=== PATIENT | female | born 1960 | race Caucasian/White ===

== ENCOUNTER → 2016-02-23 | Outpatient (CLI) | payer BC ==
[2016-02-23 14:22] VITALS: BP 128/85; PULSE 88; TEMP 37; O2SAT 96
--- NOTE | 2016-02-23 16:03 | Radiation Oncology Follow-Up ---
Radiation Oncology Follow-Up Date of Visit Feb 23, 2016. Reason For Visit Annual follow-up Radiation Completion Date 07/10/13 Diagnosis (1) Cancer of midline of right female breast Status: Resolved Onset Date: 10/01/2012 Histology Subtype: ductal Stage: ll (B) Permanent Comment: Right breast mass Status post biopsy of the right breast and axilla revealing infiltrating ductal carcinoma 10/01/2012 Estrogen receptor negative, progesterone receptor negative, HER-2/violeta negative Status post neoadjuvant chemotherapy Adriamycin and Cytoxan followed by Taxol for 4 cycles Status post right breast skin sparing mastectomy and right axillary lymph node dissection, left breast skin sparing mastectomy and lymph node injection and sentinel lymph node biopsy 04/10/2014 Right breast [id number] left breast no pathologic findings Status post reconstruction with bilateral silicone implants Status post completion of radiation therapy 07/10/2013 received 6120 cGy BRCA1 testing positive Last Edited By: Linda Roth on Feb 24, 2015 13:29 Interim History She's been doing well over this past year. She has noticed no masses or tenderness and no change of the axilla. At her last visit she had some mild swelling and discomfort of the left axilla. This has resolved. She has noticed no swelling of her arm. She had previously undergone physical therapy which helped to relieve the swelling and discomfort. She continues regular follow-up with the plastic surgeon. She has been discharged from the breast surgeon. She continues regular follow-up with medical oncology. Allergies Coded Allergies: Sulfa Drugs (Verified Allergy, Unknown, HIVES, 02/26/15) Home Medications No Active Prescriptions or Reported Meds Review of Systems Gastrointestinal: Symptoms: WNL Oral: Symptoms: No Problems Respiratory: Symptoms: WNL Urinary: Symptoms: WNL Skin: Symptoms: No Problems Breast: Right Upper Arm Measurement: 29.0 Right Mid Arm Measurement: 23.3 Right Wrist Measurement: 15.3 Left Upper Arm Measurement: 29.0 Left Mid Arm Measurement: 23.3 Left Wrist Measurement: 15.5 Arm Dominence: Right Physical Exam Vital Signs Date Time Temp Pulse Resp B/P Pulse Ox O2 Delivery O2 Flow Rate FiO2 02/23/16 14:22 37.0 88 12 128/85 96 Fatigue: None General Appearance: no apparent distress Eyes: normal inspection, EOMI ENT: normal ENT inspection, hearing grossly normal Neck: no adenopathy Respiratory/Chest: lungs clear, no respiratory distress, no accessory muscle use Breast: Examination of the chest reveals bilateral implants. There is some mild dryness of the skin which is patchy bilaterally. This is mostly noted in the inner portion of the implanted breast area. There are no masses or tenderness no axillary adenopathy. Using the [place] score cosmesis she has an excellent outcome. There are no skin retractions or telangiectasis. Cardiovascular: regular rate, rhythm, no gallop, no murmur Abdomen: non tender, soft Extremities: no pedal edema Neurologic/Psychiatric: no motor/sensory deficits, alert, normal mood/affect Skin: warm/dry Lymphatic: no adenopathy Laboratory Studies Test 11/24/15 15:56 White Blood Count 4.36 K/uL (4.8-10.8) Red Blood Count 4.22 M/uL (4.2-5.4) Hemoglobin 12.6 g/dl (12.0-16.0) Hematocrit 37.9 % (37-47) Mean Corpuscular Volume 89.8 fL (80-100) Mean Corpuscular Hemoglobin 29.9 pg (25-34) Mean Corpuscular Hemoglobin Concent 33.2 g/dl (32-36) Platelet Count 228 K/uL (130-400) Mean Platelet Volume 9.2 fL (7.4-10.4) Neutrophils (%) (Auto) 48.6 % Lymphocytes (%) (Auto) 39.9 % Monocytes (%) (Auto) 8.7 % Eosinophils (%) (Auto) 2.3 % Basophils (%) (Auto) 0.5 % Neutrophils # (Auto) 2.12 K/uL (1.4-6.5) Lymphocytes # (Auto) 1.74 K/uL (1.2-3.4) Monocytes # (Auto) 0.38 K/uL (0.11-0.59) Eosinophils # (Auto) 0.10 K/uL (0-0.5) Basophils # (Auto) 0.02 K/uL (0-0.2) RDW Standard Deviation 43.2 fL (36.4-46.3) RDW Coefficient of Variation 13.3 % (11.5-14.5) Immature Granulocyte % (Auto) 0.0 % Immature Granulocyte # (Auto) 0.00 K/uL (0.00-0.02) Sodium Level 140 mmol/L (136-145) Potassium Level 3.9 mmol/L (3.5-5.1) Chloride Level 104 mmol/L (98-107) Carbon Dioxide Level 29 mmol/L (21-32) Anion Gap 7.0 mmol/L (3-11) Blood Urea Nitrogen 11 mg/dl (7-18) Creatinine 0.65 mg/dl (0.60-1.20) Est Creatinine Clear Calc Drug Dose 90.1 ml/min Estimated GFR () 117.5 Estimated GFR (Non- 101.4 BUN/Creatinine Ratio 16.3 (10-20) Random Glucose 101 mg/dl (70-99) Calcium Level 9.3 mg/dl (8.5-10.1) Total Bilirubin 0.5 mg/dl (0.2-1) Aspartate Amino Transferase (AST) 41 U/L (15-37) Alanine Aminotransferase (ALT) 32 U/L (12-78) Alkaline Phosphatase 76 U/L (45-117) Total Protein 7.8 gm/dl (6.4-8.2) Albumin 3.9 gm/dl (3.4-5.0) Globulin 3.9 gm/dl (2.5-4.0) Albumin/Globulin Ratio 1.0 (0.9-2) Assessment & Plan Plan: Continue regular follow-up with medical oncology as well as her plastic surgeon. Continue follow-up with her primary care physician. We asked her to return to our office in 1 year. She may call if she has a questions or concerns. Also recommended the use of Aquaphor to the areas of skin dryness. Total Time In Follow-Up I spent 15 minutes speaking to the patient and performing examination. I spent 15 minutes reviewing information in completing this note. Copy To Martina Martinez CRNP; Mukul Bryson D.O.Int.Med.
== END | disposition home or self-care (01) ==
LOC: C.ONC 14:14
PROVIDERS: ATTEND Radiology Radiation Oncology
DX: Z08 Encounter for follow-up examination after completed treatment for malignant neoplasm (principal); Z92.3 Personal history of irradiation; Z85.3 Personal history of malignant neoplasm of breast

== ENCOUNTER → 2016-03-08 | Outpatient (CLI) | payer BC | END | disposition home or self-care (01) | LOC: C.LAB1850 16:57 | PROVIDERS: ATTEND Family Medicine | DX: R07.89 Other chest pain (principal) ==

== ENCOUNTER → 2016-03-09 | Outpatient (CLI) | payer BC ==
--- NOTE | 2016-03-09 19:48 | DIAGNOSTIC IMAGING REPORT ---
TWO VIEW CHEST CLINICAL HISTORY: Cough. Atypical chest pain. FINDINGS: PA and lateral chest radiographs are compared to study dated 03/31/2012 and correlated with chest CT dated 10/17/2012. The cardiomediastinal silhouette is unremarkable. The lungs and pleural spaces are clear. Right apical scarring is identified. There is no pneumothorax. The skeletal structures are osteopenic. The bony thorax appears intact. Surgical clips are noted both axillae. IMPRESSION: No active disease in the chest. Electronically signed by: Dada Johnson M.D. 03/09/2016 7:47 PM Dictated Date/Time: 03/09/2016 7:45 PM
== END | disposition home or self-care (01) ==
LOC: C.RAD1850 16:11
PROVIDERS: ATTEND Family Medicine
DX: R07.89 Other chest pain (principal)

== ENCOUNTER → 2016-03-15 | Outpatient (CLI) | payer BC ==
--- NOTE | 2016-03-15 09:44 | DIAGNOSTIC IMAGING REPORT ---
THYROID ULTRASONOGRAPHY CLINICAL HISTORY: Breast carcinoma, cervical lymphadenopathy. COMPARISON STUDY: No previous studies for comparison. FINDINGS: The right lobe measures 5.2 x 1.4 x 2.1 cm. The left lobe measures 5.4 x 1.1 x 1.8 cm. There is a 6 x 4 x 3 mm hypoechoic nodule within the left lobe laterally. No right lobe nodules are visualized. Within the right neck in the region of concern, there are 2 hypoechoic lesions the largest of which measures 7 mm. These likely represent lymph nodes. Despite the normal size, no normal fatty hilum is visualized and therefore they may be pathologic. Close follow-up is advocated. IMPRESSION: 1. Within the right lateral neck there are two hypoechoic lesions the largest of which measures 7 mm. These likely represent lymph nodes and are potentially pathologic as normal fatty hebert are not visualized. 2. 6 mm left lobe thyroid nodule Electronically signed by: Shilo Kenney M.D. 03/15/2016 9:43 AM Dictated Date/Time: 03/15/2016 9:40 AM
== END | disposition home or self-care (01) ==
LOC: C.ULTR 09:16
PROVIDERS: ATTEND Family Medicine
DX: C50.919 Malignant neoplasm of unspecified site of unspecified female breast (principal); R59.0 Localized enlarged lymph nodes

== ENCOUNTER → 2016-03-22 | Outpatient (CLI) | payer BC ==
--- NOTE | 2016-03-22 11:03 | DIAGNOSTIC IMAGING REPORT ---
ULTRASOUND-GUIDED FINE-NEEDLE ASPIRATION BIOPSY OF RIGHT NECK LYMPH NODES CLINICAL HISTORY: CERVICAL LYMPHADENOPATHY COMPARISON STUDY: Ultrasound study dated 03/15/2016 FINDINGS: A timeout was performed. The risks of procedure were explained the patient and informed consent was obtained. The patient was prepped in a sterile fashion. The skin was anesthetized 1% lidocaine. Under ultrasound guidance, 4 passes utilizing a 25-gauge needle were performed into the right posterior triangle lymph nodes of concern. Initial pathologic review indicates satisfactory material. Final pathology is pending at this time. IMPRESSION: Successful ultrasound-guided fine-needle aspiration biopsy of right neck posterior triangle lymph nodes. Electronically signed by: Shilo Kenney M.D. 03/22/2016 11:01 AM Dictated Date/Time: 03/22/2016 10:54 AM
== END | disposition home or self-care (01) ==
LOC: C.ULTR 09:19
PROVIDERS: ATTEND Internal Medicine Geriatric Medicine
DX: R59.0 Localized enlarged lymph nodes (principal); R89.6 Abnormal cytological findings in specimens from other organs, systems and tissues

== ENCOUNTER → 2016-04-06 | Outpatient (CLI) | payer BC ==
--- NOTE | 2016-04-06 21:08 | DIAGNOSTIC IMAGING REPORT ---
PET/CT CLINICAL HISTORY: Triple negative breast cancer with metastasis/recurrence in right cervical lymph node biopsy. TECHNIQUE: A PET/CT was performed from the skull base through the upper thighs following intravenous injection of 15.90 mCi of F 18 FDG IV. The injection was performed at 9:36 AM on April 06, 2016 and imaging began at 10:23 on April 06, 2016. Unenhanced CT was performed for attenuation correction purposes and anatomic localization. COMPARISON STUDY: CT of the chest, abdomen and pelvis October 17, 2012. FINDINGS: Head and neck: An FDG avid left supraclavicular lymph node shown on image 50 of 267 measures 1.8 x 1.2 cm. This node has an SUV max of 5.8. This is new since chest CT of October 17, 2012. There are several mildly enlarged FDG avid right supraclavicular and lower cervical lymph nodes as well. Chest: There are numerous FDG avid bulky left axillary lymph nodes. An upper left axillary lymph node shown on image 59 measures 4 x 2.5 cm and has an SUV max of 11.5. An inferior left axillary node shown on image 75 measures 3 x 3 cm and has an SUV max of 11.2. There are suspected bilateral mastectomies with bilateral breast implants. Note is made of a lobulated 3.2 x 2.9 cm mass along the inferior medial aspect of the left implant which has an SUV max of 11.6. Numerous FDG avid internal mammary lymph nodes are noted. A dominant left internal mammary chain node shown image 70 measures 2 x 1.4 cm and has an SUV max of 8.8. There are several extrapleural nodules within the lower aspect of the right hemithorax, the largest of which is shown on image 101, measuring 2 x 0.9 cm. This has an SUV max of 2.3. Several FDG avid masses are shown within the musculature of the right lateral chest wall. These suggest metastases as well. Abdomen and Pelvis: No suspicious FDG uptake is identified within the abdomen or the pelvis. There is a gallstone within the gallbladder. There is no abdominal or pelvic lymphadenopathy. Musculoskeletal: There is been interval development of a 9 mm sclerotic lesion within the greater trochanter of the right femur shown on image 226. This has no significant FDG uptake. IMPRESSION: 1. Findings consistent with extensive metastatic disease, including FDG avid bulky left axillary lymphadenopathy. In addition, there is bilateral supraclavicular, internal mammary and right axillary lymphadenopathy as well as several FDG avid metastases within the musculature of the right lateral chest wall. Several FDG avid right pleural/extrapleural implants suggest metastatic disease. 2. FDG avid 3.2 x 2.9 cm lobulated mass inferomedial to the left implant. This is consistent with a neoplastic process and may reflect a primary breast cancer or metastasis. 3. New 9 mm sclerotic lesion within the greater trochanter of the right femur which may reflect a small skeletal metastasis. Electronically signed by: Earl Elizabeth M.D. 04/06/2016 9:07 PM Dictated Date/Time: 04/06/2016 12:44 PM
== END | disposition home or self-care (01) ==
LOC: C.PET 09:23
PROVIDERS: ATTEND Nurse Practitioner
DX: C50.911 Malignant neoplasm of unspecified site of right female breast (principal); R59.0 Localized enlarged lymph nodes; Z98.82 Breast implant status; N63 Unspecified lump in breast; M89.9 Disorder of bone, unspecified

== ENCOUNTER → 2016-08-29 | Outpatient (CLI) | payer BC ==
--- NOTE | 2016-08-29 12:58 | DIAGNOSTIC IMAGING REPORT ---
PET/CT SKULL-THIGH CLINICAL HISTORY: BREAST CANCER COMPARISON STUDY: 04/04/2016 FINDINGS: The patient was injected with 12.5 millicuries of F 18 labeled FDG. Findings standard induction phase, PET/CT scanning was performed from the skull base to the upper thigh region. Within the neck, there is increasing FDG avid focus fusing to the right nasopharynx near the level of the fossa of Rosenmuller. This has an SUV maximum of 4.3. There are mildly FDG avid cervical lymph nodes. Posterior triangle lymph nodes in the right are mildly FDG avid with SUV maximum of 2. The largest node measures 11 mm. This is minimally larger than on the prior study. There is marked interval decrease in the size of the previous identified intensely FDG avid left axillary lymph nodes. The largest node currently measures 17 mm. This is FDG avid with SUV maximum of 6.4. There is a new focus of increased FDG activity fusing to a right-sided subcarinal lymph node. This has an SUV maximum of 4.2. There is been resolution of the pathologic activity in the region of the left internal mammary chain. There are persistent foci of intramuscular activity adjacent to the right scapula with SUV maximum of 3.8. There is decreased activity involving the left anterior chest wall mass which currently has an SUV maximum of 3.8. There are postsurgical changes of bilateral mastectomies. Right upper lobe airspace opacities are likely secondary to post radiation pneumonitis. There are no FDG avid hepatic or splenic lesions. Note is made of cholelithiasis. There is no FDG avid adenopathy within the abdomen or pelvis. Mild diffuse skeletal activity, likely is related to marrow stimulation. IMPRESSION: 1. Significant interval improvement, although there does appear to be a new FDG avid right subcarinal lymph node, as well as increasingly FDG avid focus in the region of the right nasopharynx. 2. Pathologic lesions involving the left chest wall left axilla and left internal mammary chain are markedly improved Electronically signed by: Shilo Kenney M.D. 08/29/2016 12:57 PM Dictated Date/Time: 08/29/2016 12:46 PM
== END | disposition home or self-care (01) ==
LOC: C.PET 09:23
PROVIDERS: ATTEND Internal Medicine Hematology & Oncology
DX: C50.411 Malignant neoplasm of upper-outer quadrant of right female breast (principal)

== ENCOUNTER → 2016-11-28 | Outpatient (CLI) | payer BC ==
[~2016-11-28] MED LIST: OPTIRAY 320 IV PRN
--- NOTE | 2016-11-28 12:21 | DIAGNOSTIC IMAGING REPORT ---
CT ABD/PELVIS IV AND ORAL CONT CLINICAL HISTORY: BREAST CA COMPARISON STUDY: 10/17/2012, PET/CT scan dated 08/29/2016 TECHNIQUE: Following the IV administration of 119 mL of Optiray-320, CT scan of the abdomen and pelvis was performed from the lung bases to the proximal femurs. Images are reviewed in the axial, sagittal, and coronal planes. IV contrast was administered without complication. A dose lowering technique was utilized adhering to the principles of ALARA. CT DOSE: FINDINGS: Lower chest: There are bilateral breast implants. There is a 42 cm medial right breast mass. There is a partially visualized mass involving the right lateral chest wall which measures at least 5 cm in length. Liver: The contrast-enhanced liver is normal in size, contour, and attenuation. There is no intrahepatic biliary ductal dilatation. The hepatic veins and portal veins are patent. Gallbladder: Cholelithiasis Spleen: Normal in size and attenuation. Pancreas: Unremarkable. Adrenal glands: Unremarkable. Kidneys: There is an 8 mm left renal cyst. No solid renal masses are visualized. Bowel: There are no transition zones indicate bowel obstruction. No acute inflammatory changes are visualized. Peritoneum: There is no intraperitoneal free air or abdominal ascites. Vasculature: The abdominal aorta is normal in course and caliber. Adenopathy: There are enlarged upper abdominal retrocrural lymph nodes. These appear larger than on the prior PET/CT scan. These measure up to 16 mm in diameter. There are also enlarged lower right para esophageal lymph nodes. These also are mildly larger than on the prior study. Right paravertebral lymphadenopathy, has also increased when compared the preceding study. Pelvic viscera: The uterus appears surgically absent. Skeletal structures: No destructive osseous lesions are seen. There is a stable nonspecific 9 mm sclerotic focus within the intertrochanteric portion of the right hip IMPRESSION: 1. Progression of disease 2. Enlarging 42 mm left medial breast mass 3. Partially visualized right lateral chest wall mass 4. Progressive right-sided paravertebral lymphadenopathy 5. Progressive para esophageal adenopathy 6. Progressive retrocrural lymphadenopathy Electronically signed by: Shilo Kenney M.D. 11/28/2016 12:20 PM Dictated Date/Time: 11/28/2016 12:10 PM
--- NOTE | 2016-11-28 12:42 | DIAGNOSTIC IMAGING REPORT ---
CT SCAN OF THE CHEST WITH IV CONTRAST CLINICAL HISTORY: Breast cancer. COMPARISON STUDY: Chest CT dated 10/17/2012. PET/CT dated 08/29/2016. TECHNIQUE: Following the IV administration of 119 cc of Optiray 320, CT scan of the thorax was performed from the thoracic inlet to the upper abdomen. Images are reviewed in the axial, sagittal, and coronal planes. IV contrast was administered without complication. A dose lowering technique was utilized adhering to the principles of ALARA. CT DOSE: 606.41 mGy.cm FINDINGS: Thyroid: Imaged portions of the thyroid gland are normal in size and attenuation. Thoracic aorta: The thoracic aorta is normal in caliber and demonstrates standard 3-vessel arch anatomy. No dissection is seen. Pulmonary vasculature: The pulmonary trunk is normal in caliber. There are no filling defects identified in the central pulmonary vessels to indicate pulmonary embolus. Note that this examination was not protocoled for evaluation of the pulmonary arteries. Heart: The heart is normal in size and configuration, and without pericardial effusion. Lungs and pleural spaces: There are numerous (greater than 10) pleural-based metastatic lesions identified at the right lung base posteriorly. Groundglass opacities and scarring are present at the right apex. The lungs are otherwise clear. No parenchymal pulmonary lesion is seen. There is no pleural effusion. The trachea and central airways are clear. Mediastinum: Mediastinal lymphadenopathy has progressed. A right paratracheal node on image #81 measures 1.7 x 2.3 cm. A subcarinal node on image #119 measures 1.9 x 3.0 cm. The largest is seen on image #218 and measures 3.2 x 1.3 cm. Additional sales and marketing representative lesions are seen on images #198, #212, #247, and 47, #251, and #263 these lesions extend into the right paravertebral region. Reema: Clear. Axillae: Surgical clips are present within the axilla bilaterally. There are pathologically enlarged left axillary and subpectoral nodes which have increased in size from previous. The largest left axillary node is seen on image #70 and measures 3.0 x 1.7 cm (previously measuring up to 1.8 cm). Slightly hyperemic right subpectoral nodes seen on image #48 measure up to 6 mm and are also concerning for metastatic disease. Internal mammary chain: Pathologically enlarged right internal mammary lymph nodes have increased in size. The largest node is seen on image #85 and measures 1.2 x 1.8 cm. No left internal mammary lymph nodes are identified. Upper abdomen: There is evidence of hepatic steatosis. A 1.2 cm retrocrural lymph node is seen image #265. Skeletal structures: The skeletal structures appear osteopenic. No lytic or blastic bony lesions are clearly seen. Soft tissues: There are postoperative changes from bilateral mastectomy with bilateral breast implants. Large soft tissue implants are again seen in the chest wall and an increased in size from 08/29/2016. A lesion in the left chest wall medial to the left breast implant on image #174 measures 3.2 x 4.2 cm (producing measured up to 2.8 cm). There are least 7 lesions in the right lateral chest wall seen on images #132-204. The largest measures up to 3.3 x 2.8 cm (previously measured up to 2.8 cm). Small soft tissue implants are seen superficial to the sternum the midline on images #138, #149, and #158 measuring up to 1.4 cm. A 1.3 cm lesion is noted in the right shoulder musculature on image #94. IMPRESSION: 1. Overall significant progression of multifocal metastatic disease as compared to 08/29/2016. 2. There are numerous enlarging chest wall lesions as above. 3. There is enlarging axillary, subpectoral, right internal mammary, mediastinal, and retrocrural lymphadenopathy as above. 4. There is evidence of multifocal pleural-based metastatic disease at the right lung base. There is no associated pleural effusion. 5. Groundglass change and scarring at the right apex is nonspecific and likely treatment related. This is similar to previous. There is no evidence of pneumonia. 6. No destructive bony lesion is clearly seen. 7. Hepatic steatosis. 8. Additional findings as above. Electronically signed by: Dada Johnson M.D. 11/28/2016 12:40 PM Dictated Date/Time: 11/28/2016 12:25 PM
== END | disposition home or self-care (01) ==
LOC: C.CTS 11:46
PROVIDERS: ATTEND Internal Medicine Hematology & Oncology
DX: C50.411 Malignant neoplasm of upper-outer quadrant of right female breast (principal); C78.2 Secondary malignant neoplasm of pleura; R59.0 Localized enlarged lymph nodes; K76.0 Fatty (change of) liver, not elsewhere classified

== ENCOUNTER → 2016-12-07 | Outpatient (CLI) | payer BC ==
--- NOTE | 2016-12-07 17:21 | DIAGNOSTIC IMAGING REPORT ---
THORACIC SPINE 3 VIEWS ROUTINE, L-SPINE MIN 4 VIEWS ROUTINE HISTORY: 56 years-old Female M54.9 Back painpt. has breast [id number] acute back pain with history of breast cancer COMPARISON: CT chest, abdomen and pelvis 11/28/2016 TECHNIQUE: Frontal and lateral views of the thoracic spine with 5 views of the lumbar spine FINDINGS: THORACIC: There are 12 thoracic type vertebral segments. There is a few degrees of convex right curvature of the midthoracic spine. Mild multilevel endplate spurring and intervertebral disc space narrowing. No acute fracture or subluxation. No definite suspicious lytic or blastic bony lesions identified. Surgical clips project over the upper chest. LUMBAR: 5 lumbar type vertebral segments. No spondylolysis or spondylolisthesis. No acute fracture or subluxation. Mild multilevel endplate spurring and intervertebral disc space narrowing with facet arthrosis. No suspicious lytic or blastic bony lesions. Moderate formed stool of the colon, notably the ascending colon. IMPRESSION: 1. No suspicious lytic or blastic bony lesions of the thoracic or lumbar spine. 2. Mostly mild multilevel degenerative changes of the spine without acute fracture or subluxation. The above report was generated using voice recognition software. It may contain grammatical, syntax or spelling errors. Electronically signed by: Merrill Renteria M.D. 12/07/2016 5:20 PM Dictated Date/Time: 12/07/2016 5:13 PM
== END | disposition home or self-care (01) ==
LOC: C.RAD1850 16:37
PROVIDERS: ATTEND Internal Medicine
DX: M54.9 Dorsalgia, unspecified (principal); M47.894 Other spondylosis, thoracic region; M47.26 Other spondylosis with radiculopathy, lumbar region; C50.411 Malignant neoplasm of upper-outer quadrant of right female breast; C78.2 Secondary malignant neoplasm of pleura

== ENCOUNTER → 2017-02-22 | Outpatient (CLI) | payer OTHER ==
[~2017-02-22] MED LIST changes: +ACET-1256 PO; +ONDA4TAB46 PO; -OPTIRAY 320 IV PRN; +OXYC1TAB3 PO; +POTA10CA28 PO
[2017-02-22 13:35] VITALS: BP 126/87; PULSE 91; TEMP 36.7; O2SAT 100
--- NOTE | 2017-02-22 16:39 | Radiation Oncology Follow-Up ---
Radiation Oncology Follow-Up Date of Visit Feb 22, 2017. 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 Onset Date: 10/01/2012 Histology Subtype: ductal Stage: IV Permanent Comment: Right breast mass Status post biopsy of the right breast and axilla revealing infiltrating ductal carcinoma 10/01/2012 Estrogen receptor negative, progesterone receptor negative, HER-2/violeta negative Status post neoadjuvant chemotherapy Adriamycin and Cytoxan followed by Taxol for 4 cycles Status post right breast skin sparing mastectomy and right axillary lymph node dissection, left breast skin sparing mastectomy and lymph node injection and sentinel lymph node biopsy 04/10/2014 Right breast [id number] left breast no pathologic findings Status post reconstruction with bilateral silicone implants Status post completion of radiation therapy 07/10/2013 received 6120 cGy BRCA1 testing positive Finding of a right neck mass March 2016 Status post FNA revealing metastatic adenocarcinoma of breast origin PET/CT revealing extensive metastatic disease. 6 cycles of chemotherapy with Abraxane PET/CT revealing improvement August [address] November 2016 showing progression Currently undergoing chemotherapy with gemcitabine and carboplatin Last Edited By: Linda Roth on Feb 22, 2017 16:32 Interim History One month following her visit last year she palpated a mass in the right neck. She underwent an FNA which unfortunately revealed this to be metastatic carcinoma of breast origin. PET/CT revealed significant metastatic disease. She began chemotherapy with Abraxane and had a recheck PET/CT then in August which showed improvement. This was after 6 cycles of Abraxane. Recheck CT in November 2016 revealed progression of disease. She was then started on gemcitabine and carboplatin. She has now received 5 cycles of treatment. With this second regimen of treatment she has less neuropathy and less joint pain. She has mild nausea. She has joint discomfort with Neulasta. Following the initiation of the Abraxane the mass of the neck resolved as well as a thickening that could be felt in the left lower breast. Allergies Coded Allergies: Tramadol (Verified Allergy, Intermediate, Nausea/Vomiting , 02/22/17) Sulfa Drugs (Verified Allergy, Unknown, HIVES, 02/26/15) Home Medications Scheduled Potassium Chloride (Micro-K Ext Rel), 10 MEQ PO DAILY Scheduled PRN Oxycodone Ir (Roxicodone Ir), 1-2 TAB PO Q4H PRN for Severe Pain Review of Systems Gastrointestinal: Symptoms: WNL, Nausea GI Comments: "Queezy" after chemo Oral: Symptoms: No Problems Respiratory: Symptoms: WNL Urinary: Symptoms: WNL Skin: Symptoms: No Problems Breast: Right Upper Arm Measurement: 28.5 Right Mid Arm Measurement: 23.1 Right Wrist Measurement: 15.7 Left Upper Arm Measurement: 29.1 Left Mid Arm Measurement: 23.0 Left Wrist Measurement: 15.8 Arm Dominence: Right Physical Exam Vital Signs Date Time Temp Pulse Resp B/P (MAP) Pulse Ox O2 Delivery O2 Flow Rate FiO2 02/22/17 13:35 36.7 91 16 126/87 100 Fatigue: None General Appearance: no apparent distress Eyes: normal inspection, EOMI ENT: normal ENT inspection, hearing grossly normal Neck: no adenopathy, thyroid normal Respiratory/Chest: lungs clear, no respiratory distress, no accessory muscle use Breast: Breast examination reveals bilateral implants. There are no masses or tenderness and no axillary adenopathy. She has no skin retractions or telangiectasia. Using the [place] score cosmesis she has a in excellent outcome. Cardiovascular: regular rate, rhythm, no gallop, no murmur Abdomen: non tender, soft Extremities: no pedal edema Neurologic/Psychiatric: no motor/sensory deficits, alert, normal mood/affect Pain Management Patient Reports Pain: Yes Pain Management Plan The patient has multiple medications available for pain as recommended through medical oncology. Laboratory Laboratory Results: not applicable Pathology Pathology Results: were reviewed Pathology Comments Reviewed in interim history Imaging Imaging Studies: were reviewed Imaging Comments Reviewed in the interim history Assessment & Plan Plan: She'll continue regular follow-up with medical oncology and her primary care physician. She is continuing on chemotherapy and has completed 5 cycles of gemcitabine and carboplatin. Recheck scanning per medical oncology. A follow-up appointment with our office was not given. Discussed with her that she is having close follow-up with medical oncology and currently does not need to return to our office unless otherwise recommended by medical oncology. She may call our office if she has any questions or concerns. Total Time In Follow-Up I spent 20 minutes speaking to the patient and performing examination. I spent 15 minutes reviewing information in completing this note. Copy To Mukul Bryson D.O.; Mendez Holguin D.O.
== END | disposition home or self-care (01) ==
LOC: C.ONC 13:31
PROVIDERS: ATTEND Physician Assistant Medical
DX: Z08 Encounter for follow-up examination after completed treatment for malignant neoplasm (principal); Z92.3 Personal history of irradiation; Z85.3 Personal history of malignant neoplasm of breast

== ENCOUNTER → 2017-03-09 | Day surgery (SDC) | payer OTHER ==
[2017-03-08 08:47] VITALS: BMI 27.0
[~2017-03-09] VITALS: Ht 161.3 cm; Wt 71.8 kg
[~2017-03-09] MED LIST changes: +ATROPINE SULFATE 0.1 MG/ML 5ML SYR IV PRN; +BUPIVACAINE 0.5 % 5 MG/1 ML MPF 30ML VIAL ONE; +CEFAZOLIN 2000MG IV PUSH 10 ML IV SCH; +EpHEDrine SULFATE INJ 50 MG/ML AMP IV PRN; +FENTANYL CITRATE INJ 50 MCG/1 ML 2 ML VIAL IV PRN; +FENTANYL CITRATE INJ 50 MCG/1 ML 2 ML VIAL ONE; +HEPARIN SOD (PORCINE) 5000 UNIT/ML 1 ML VIAL ONE; +HYDROCODONE/ACETAMOPHEN 5/325MG TAB PO PRN; +HYDROmorphone INJ 1 MG/ML SYR IV PRN; +LABETALOL HCL IV 5 MG/ML 20ML IV PRN; +LACTATED RINGER'S 1000ML 1,000 ML IV SCH; +LIDOCAINE HCL 2% 2 ML VIAL (20MG/ML) ONE; +LIDOCAINE/EPINEPHRINE 1% 20 ML VIAL ONE; +MEPERIDINE HCL 25 MG/ML CARP IV PRN; +MIDAZOLAM HCL 1 MG/ML 2ML VIAL ONE; +MoRPHine SULFATE 2 MG/ML CARP IV PRN; +ONDANSETRON INJ 2 MG/ML 2 ML VIAL IV PRN; +PROPOFOL IV EMULSION 10 MG/ML 20 ML VIAL IV ONE
[2017-03-09 08:13] VITALS: BP 120/78; PULSE 76; TEMP 36.6; O2SAT 100; Ht 161.3 cm; Wt 71.8 kg
[2017-03-09 08:39] LABS: HEMATOCRIT 26.1 % (37-47); HEMOGLOBIN 8.8 g/dL (12.0-16.0); MEAN CELL VOLUME 92.9 fL (80-100); MEAN CORPUSCULAR HEMOGLOBIN 31.3 pg (25-34); MEAN CORPUSCULAR HGB CONC 33.7 g/dl (32-36); RED CELL DISTRIBUTION WIDTH CV 18.1 % (11.5-14.5); RED CELL DISTRIBUTION WIDTH SD 58.9 fL (36.4-46.3); WHITE BLOOD COUNT 1.96 K/uL (4.8-10.8)
[2017-03-09 08:55] LABS: MEAN PLATELET VOLUME 11.7 fL (7.4-10.4); PLATELET COUNT 65 K/uL (130-400)
[2017-03-09 09:22] LABS: EOS % 0.5 %; EOS ABS # 0.01 K/uL (0-0.5); IG# 0.01 K/uL (0.00-0.02); LYMPH ABS # 1.02 K/uL (1.2-3.4); MONO % 19.4 %; MONO ABS # 0.38 K/uL (0.11-0.59); NEUT % 27.6 %; NEUT ABS # 0.54 K/uL (1.4-6.5)
--- NOTE | 2017-03-09 11:26 | History & Physical Bridge Note ---
H&P Re-Evaluation Bridge Note: I have examined the patient, reviewed the History & Physical and in the interval since the performance of the History & Physical I have noted the following changes of clinical significance: Patient seen and examined, agree with history of physical was performed. Patient with metastatic breast cancer, prior port in left internal jugular vein, we will attempt to utilize this vein if possible, however she understands that she may require placement on the right. No changes noted
--- NOTE | 2017-03-09 12:51 | Discharge Instructions ---
Discharge Instructions Date of Service Mar 09, 2017. Visit Reason for Visit: Right Breast Cancer Discharge Discharge Diagnosis / Problem: port placement Discharge Goals Goal(s): Therapeutic intervention Activity Recommendations Activity Limitations: as noted below Shower/Bathe: no limitations Anesthesia . Post Anesthesia Instructions: If you have had General Anesthesia or IV Sedation: * Do not drive today. * Resume driving when surgeon permits. * Do not make important decisions or sign legal documents today. * Call surgeon for: 1. Temperature elevations greater than 101 degrees F. 2. Uncontrollable pain. 3. Excessive bleeding. 4. Persistent nausea and vomiting. 5. Medication intolerance (nausea, vomiting or rash). * For nausea and vomiting use only clear liquids such as: tea, soda, bouillon until nausea subsides, then gradually increase diet as tolerated. * If you have any concerns or questions, call your surgeon's office. If physician is unavailable and it is an emergency, call 911 or go to the nearest emergency room. . Instructions / Follow-Up Instructions / Follow-Up Dr. Logan in approx 2 weeks, call [phone] if you do not have an appt or have any questions It is ok for port to be used You can take ibuprofen 600 mg three times daily for pain in addition to Tylenol or oxycodone Diet Recommendations Recommended Home Diet: no limitations Pending Studies Studies pending at discharge: no Medical Emergencies . Who to Call and When: Medical Emergencies: If at any time you feel your situation is an emergency, please call 911 immediately. . Non-Emergent Contact Non-Emergency issues call your: Surgeon Call Non-Emergent contact if: you have a fever, temperature is above 101.5, your pain is not controlled, wound has increased redness, you have any medication questions . . "Provider Documentation" section prepared by Matt Pelayo. .
--- NOTE | 2017-03-09 12:59 | [facility] Post Operative Brief Note ---
Immediate Operative Summary Operative Date Mar 09, 2017. Pre-Operative Diagnosis Breast Cancer, Poor Venous Access Post-Operative Diagnosis Breast Cancer, Poor Venous Access Procedure(s) Performed Insertion of Mediport with Fluoroscopy, Left Internal Jugular Vein Surgeon Dr. Abdi Logan Cultured [employer]ble Products Maker Surgeon(s) none Estimated Blood Loss 15ml Findings Consistent with Post-Op Diagnosis Specimens none per surgeon Drains None Anesthesia Type None Complication(s) none Disposition Accompanied Pt To Recover: no Disposition: Recovery Room / PACU
--- NOTE | 2017-03-09 13:19 | [facility] Operative Report ---
Operative Report Operative Date Mar 09, 2017. Pre-Operative Diagnosis Breast Cancer, Poor Venous Access Post-Operative Diagnosis same Procedure(s) Performed Insertion of left internal jugular vein tunneled catheter with subcutaneous port using fluoroscopy Surgeon Dr. Abdi Logan Glass Deposition Tender Surgeon(s) none Estimated Blood Loss 15ml Findings Left internal jugular vein accessed using ultrasound guidance, on first access wire did not go into the SVC. The wire and needle were removed and the left internal jugular vein was reaccessed with ultrasound guidance and the wire went into the SVC. Port placed, good placement on fluoroscopy, draws and flushes easily. Specimens none per surgeon Drains none Anesthesia MAC/local Complication(s) None Disposition Recovery Room / PACU Indications 56-year-old female with recurrent metastatic breast cancer, need for long-term access for chemotherapy. Plan for Mediport placement. The risks of the procedure were discussed, all questions were answered, and the patient agreed to proceed with surgery as planned. Description of Procedure The patient was properly identified, consented, and taken to the operating room where she was placed in the supine position with both arms tucked and a shoulder roll placed vertically. Monitored anesthesia care was induced. SCDs and a safety belt were placed. Preoperative antibiotics were administered. The patient's chest and neck was prepped and draped in the standard sterile fashion. Surgical timeout was performed and all parties were in agreement that this was the correct patient and procedure to be performed and we continued as planned. The patient was placed in Trendelenburg position. Local anesthetic was injected along the proposed left chest and left neck skin incisions. Using real time ultrasound guidance the left internal jugular vein was accessed on the first attempt using the access needle. The wire was placed and the needle was removed. Fluoroscopy showed that the wire was not passing into the superior vena cava. Wire and needle were removed and the left internal jugular vein was reaccessed using real time ultrasound guidance. A wire was placed and this time fluoroscopy showed that the wire was extending into superior vena cava. The needle was removed and the wire left in place. A transverse skin incision was made in the left chest at her old incision site and a pocket was created for the port. A stab incision was made in the left neck next to the wire. The tunneling device was used to pass the catheter under the skin from the chest incision into the neck incision. The dilator and peel-away sheath were inserted over the wire. The catheter was then inserted through the peel- away sheath and fluoroscopy confirmed placement into the superior vena cava. The catheter was cut and attached to the port. The port was secured into place with 3-0 Prolene sutures. A final x-ray revealed good placement of the port. The wound was irrigated and hemostasis was confirmed. The skin was closed with interrupted 3-0 Vicryl deep dermal sutures, followed by 4-0 Monocryl running subcuticular suture. The neck incision was closed with a single 4-0 Monocryl subcuticular suture. Dermabond was placed over the wounds. The port was accessed and beverly blood easily and flushed easily. It was flushed with heparinized saline. The patient taken to the PACU where she recovered without apparent incident. All sponge, instrument and needle counts were correct at the conclusion of the procedure. The patient tolerated the procedure well. I attest to the content of the Intraoperative Record and any orders documented therein. Any exceptions are noted below.
--- NOTE | 2017-03-09 13:21 | [facility] Operative Report ---
Operative Report Operative Date Mar 09, 2017. Pre-Operative Diagnosis Breast cancer, need for long-term venous access Surgeon Dr. Abdi Logan Findings Real time ultrasound guidance was used for accessing the left internal jugular vein. Real time fluoroscopy was used interpreted for placement of port. A total of 44.8 seconds of fluoroscopy time was used. Disposition Recovery Room / PACU I attest to the content of the Intraoperative Record and any orders documented therein. Any exceptions are noted below.
[2017-03-09 13:50] VITALS: BP 118/82; PULSE 73; TEMP 37; O2SAT 99
--- NOTE | 2017-03-09 13:53 | DIAGNOSTIC IMAGING REPORT ---
CHEST ONE VIEW PORTABLE CLINICAL HISTORY: Port placement. COMPARISON STUDY: Chest radiograph March 09, [address] November 28, 2016. FINDINGS: There has been interval placement of a left internal jugular [id number]. There is no pneumothorax. Catheter tip projects of the mid SVC. There is a small amount of subcutaneous gas within the left lower neck status post insertion. There are bilateral axillary surgical clips. There are bilateral breast implants. Pulmonary vascularity is normal. Cardiomediastinal silhouette is unremarkable. IMPRESSION: No pneumothorax following placement of a left internal jugular [id number]. Catheter tip projects over the mid SVC. Electronically signed by: Earl Elizabeth M.D. 03/09/2017 1:52 PM Dictated Date/Time: 03/09/2017 1:50 PM
--- NOTE | 2017-03-09 14:11 | Anesthesiology Progress Note ---
Anesthesia Post Op Note Date & Time Mar 09, 2017 at 14:11 Vital Signs Pain Intensity: 0 Vital Signs Past 12 Hours Date Time Temp Pulse Resp B/P (MAP) Pulse Ox O2 Delivery O2 Flow Rate FiO2 03/09/17 13:50 37.0 73 14 118/82 99 Room Air 03/09/17 13:30 36.3 68 14 125/88 99 Nasal Cannula 03/09/17 13:20 72 12 110/82 98 Nasal Cannula 03/09/17 13:10 85 12 126/88 100 Nasal Cannula 2 03/09/17 13:04 36.2 82 12 123/79 100 Nasal Cannula 2 03/09/17 08:13 36.6 76 18 120/78 (92) 100 Room Air Notes Mental Status: alert / awake / arousable, participated in evaluation Pt Amnestic to Procedure: Yes Nausea / Vomiting: adequately controlled Pain: adequately controlled Airway Patency, RR, SpO2: stable & adequate BP & HR: stable & adequate Hydration State: stable & adequate Anesthetic Complications: no major complications apparent
[2017-03-09 14:20] VITALS: BP 125/85; PULSE 86; TEMP 37.1; O2SAT 99
[2017-03-09 14:50] VITALS: BP 128/87; PULSE 89; TEMP 36.6; O2SAT 100
== END | disposition home or self-care (01) ==
LOC: C.ACU 07:42
PROVIDERS: ATTEND Surgery
DX: C50.919 Malignant neoplasm of unspecified site of unspecified female breast (principal); I87.8 Other specified disorders of veins; Z83.3 Family history of diabetes mellitus; Z82.49 Family history of ischemic heart disease and other diseases of the circulatory system; Z82.5 Family history of asthma and other chronic lower respiratory diseases; Z80.0 Family history of malignant neoplasm of digestive organs; Z80.7 Family history of other malignant neoplasms of lymphoid, hematopoietic and related tissues; Z80.6 Family history of leukemia

== ENCOUNTER → 2017-05-03 | Outpatient (CLI) | payer OTHER ==
[~2017-05-03] MED LIST changes: -ATROPINE SULFATE 0.1 MG/ML 5ML SYR IV PRN; -BUPIVACAINE 0.5 % 5 MG/1 ML MPF 30ML VIAL ONE; -CEFAZOLIN 2000MG IV PUSH 10 ML IV SCH; -EpHEDrine SULFATE INJ 50 MG/ML AMP IV PRN; -FENTANYL CITRATE INJ 50 MCG/1 ML 2 ML VIAL IV PRN; -FENTANYL CITRATE INJ 50 MCG/1 ML 2 ML VIAL ONE; -HEPARIN SOD (PORCINE) 5000 UNIT/ML 1 ML VIAL ONE; -HYDROCODONE/ACETAMOPHEN 5/325MG TAB PO PRN; -HYDROmorphone INJ 1 MG/ML SYR IV PRN; -LABETALOL HCL IV 5 MG/ML 20ML IV PRN; -LACTATED RINGER'S 1000ML 1,000 ML IV SCH; -LIDOCAINE HCL 2% 2 ML VIAL (20MG/ML) ONE; -LIDOCAINE/EPINEPHRINE 1% 20 ML VIAL ONE; -MEPERIDINE HCL 25 MG/ML CARP IV PRN; -MIDAZOLAM HCL 1 MG/ML 2ML VIAL ONE; -MoRPHine SULFATE 2 MG/ML CARP IV PRN; -ONDANSETRON INJ 2 MG/ML 2 ML VIAL IV PRN; +OPTIRAY 320 IV PRN; -PROPOFOL IV EMULSION 10 MG/ML 20 ML VIAL IV ONE
--- NOTE | 2017-05-03 11:24 | DIAGNOSTIC IMAGING REPORT ---
ABD/PELVIS IV AND ORAL CONT CLINICAL HISTORY: 56 years-old Female presenting with BREAST CANCER. TECHNIQUE: Multidetector CT of the abdomen and pelvis was performed after the administration of oral and intravenous contrast. IV contrast: 94 mL of Optiray 320. A dose lowering technique was used consistent with the principles of ALARA (as low as reasonably achievable). COMPARISON: 11/28/2016. CT DOSE (mGy.cm): The estimated cumulative dose is 692.[address] chest. FINDINGS: Director Product Management topogram: Unremarkable. Lung bases: Post treatment changes of the medial left breast with no discrete visualized mass apparent. Only minimal subcutaneous stranding evident. Bilateral breast implants unchanged. The right lateral chest wall mass is also not visualized though possibly outside of the field of view there lung bases with mosaic attenuation in the left lung, likely small airways disease. No focal infiltrate or nodule. Normal heart size. No pericardial or pleural effusion. Liver: Normal morphology. No liver lesion. Patent hepatic vasculature. Biliary: No intrahepatic or extrahepatic biliary ductal dilatation. Gallbladder contains gallstones. Pancreas: Mild parenchymal atrophy. Small lipomas noted in the pancreatic head and uncinate process. Spleen: Normal. Adrenal glands: Normal. Kidneys and ureters: Subcentimeter hypodensities in the kidneys, unchanged and likely cysts. No nephrolithiasis. No hydronephrosis. Ureters normal. Bladder: Normal. Pelvic organs: Uterus surgically absent. No adnexal masses. Bowel: Moderate stool burden in mildly dilated colon. The appendix is normal. No bowel obstruction. Peritoneal cavity: No free fluid or intraperitoneal gas. Lymph nodes: Interval resolution of the esophageal, paravertebral, and retrocrural lymphadenopathy. Minimal subcentimeter lymph nodes evident in the aortocaval region (for example series 7 image 211). These are not pathologically enlarged by CT size criteria. Vasculature: Atherosclerosis of the normal caliber abdominal aorta. IVC patent. Abdominal wall: Normal. Musculoskeletal: Sclerotic lesion in the intertrochanteric region of the right femur is unchanged and indeterminate no additional lesion is identified. IMPRESSION: 1. Significant interval improvement with posttreatment changes of the medial left breast, nonvisualization of the right lateral chest wall mass, and complete resolution of lymphadenopathy. No new sites of disease in abdomen or pelvis. 2. Stable indeterminate sclerotic lesion in the right femur. This was not present in 2013 and is suspicious for a site of osseous metastatic disease. This was not FDG avid on most recent PET/CT from 08/29/2016 and could represent treated disease. Electronically signed by: Dylan Connors M.D. 05/03/2017 11:22 AM Dictated Date/Time: 05/03/2017 11:13 AM
--- NOTE | 2017-05-03 11:30 | DIAGNOSTIC IMAGING REPORT ---
CT (CHEST) THORAX WITH CT DOSE: 692.62 mGy.cm HISTORY: Breast carcinoma BREAST CANCER TECHNIQUE: Multiaxial CT images of the chest were performed following the intravenous administration of contrast. A dose lowering technique was utilized adhering to the principles of ALARA. COMPARISON: 11/28/2016 FINDINGS: Groundglass changes at the right pulmonary apex are unaltered. The pleural-based densities of the right lung base have essentially resolved. The mediastinal and hilar adenopathy is considerably improved. There is no significant residual nodularity. A solitary pretracheal node is present measuring 11 mm. Axillary adenopathy is considerably improved. Small residual nodes in the left axilla have a maximum diameter of 7 mm on the left and 5 mm on the right. Bulky adenopathy is not identified at the current time. Bilateral breast augmentation/reconstruction changes are noted bilaterally. These findings are stable. The large anterior chest wall lesion has shown near complete resolution with minimal residual of 1 cm. This residual shows a considerable decrease in density area in this is considered by CT criteria improved. Multiple additional chest wall nodules have improved in a similar fashion. Fatty infiltration of the liver persists. The retrocrural node procedure described at 1.2 cm has resolved. IMPRESSION: 1. Marked improvement in the appearance of the chest. 2. Near complete resolution of the chest wall leandra pathology, axillary adenopathy, as well as the parenchymal and pleural-based nodularity at the right lung base. 3. Minimal, if any residual as discussed above. 4. The current study shows no significant adenopathy, no significant pulmonary nodularity, with no significant evidence at the current time for metastatic change. The above report was generated using voice recognition software. It may contain grammatical, syntax or spelling errors. Electronically signed by: Roverto Flynn M.D. 05/03/2017 11:28 AM Dictated Date/Time: 05/03/2017 11:21 AM
== END | disposition home or self-care (01) ==
LOC: C.CTS 10:37
PROVIDERS: ATTEND Internal Medicine Hematology & Oncology
DX: C50.411 Malignant neoplasm of upper-outer quadrant of right female breast (principal)

== ENCOUNTER → 2017-09-12 | Outpatient (CLI) | payer OTHER ==
[~2017-09-12] MED LIST changes: -OPTIRAY 320 IV PRN; +OXYC-90 PO; -OXYC1TAB3 PO
[2017-09-12 10:38] LABS: HEMATOCRIT 32.9 % (37-47); HEMOGLOBIN 10.7 g/dL (12.0-16.0); MEAN CELL VOLUME 97.6 fL (80-100); MEAN CORPUSCULAR HEMOGLOBIN 31.8 pg (25-34); MEAN CORPUSCULAR HGB CONC 32.5 g/dl (32-36); MEAN PLATELET VOLUME 9.5 fL (7.4-10.4); NUCLEATED RED BLOOD CELL ABS 0.03 K/uL (0-0); PLATELET COUNT 198 K/uL (130-400); RED CELL DISTRIBUTION WIDTH CV 15.7 % (11.5-14.5); RED CELL DISTRIBUTION WIDTH SD 55.4 fL (36.4-46.3); WHITE BLOOD COUNT 4.68 K/uL (4.8-10.8)
[2017-09-12 11:06] LABS: ALBUMIN 3.5 gm/dl (3.4-5.0); ALKALINE PHOSPHATASE 70 U/L (45-117); ALT/SGPT 29 U/L (12-78); AST/SGOT 24 U/L (15-37); BLOOD UREA NITROGEN 7 mg/dl (7-18); CALCIUM 8.3 mg/dl (8.5-10.1); CARBON DIOXIDE 27 mmol/L (21-32); CREATININE 0.61 mg/dl (0.60-1.20); GLUCOSE 142 mg/dl (70-99); POTASSIUM 3.9 mmol/L (3.5-5.1); SODIUM 139 mmol/L (136-145); TOTAL PROTEIN 6.7 gm/dl (6.4-8.2)
== END | disposition home or self-care (01) ==
LOC: C.LABSPEC 10:27
PROVIDERS: ATTEND Internal Medicine Hematology & Oncology
DX: C50.411 Malignant neoplasm of upper-outer quadrant of right female breast (principal)

== ENCOUNTER → 2017-09-19 | Outpatient (CLI) | payer OTHER ==
[2017-09-19 11:33] LABS: HEMATOCRIT 29.5 % (37-47); HEMOGLOBIN 9.7 g/dL (12.0-16.0); MEAN CELL VOLUME 97.4 fL (80-100); MEAN CORPUSCULAR HGB CONC 32.9 g/dl (32-36); RED CELL DISTRIBUTION WIDTH CV 15.3 % (11.5-14.5); RED CELL DISTRIBUTION WIDTH SD 53.7 fL (36.4-46.3); WHITE BLOOD COUNT 2.66 K/uL (4.8-10.8)
[2017-09-19 11:56] LABS: ALBUMIN 3.3 gm/dl (3.4-5.0); ALKALINE PHOSPHATASE 82 U/L (45-117); ALT/SGPT 32 U/L (12-78); AST/SGOT 20 U/L (15-37); BLOOD UREA NITROGEN 10 mg/dl (7-18); CALCIUM 7.6 mg/dl (8.5-10.1); CARBON DIOXIDE 25 mmol/L (21-32); CREATININE 0.53 mg/dl (0.60-1.20); GLUCOSE 107 mg/dl (70-99); POTASSIUM 3.4 mmol/L (3.5-5.1); SODIUM 140 mmol/L (136-145); TOTAL PROTEIN 6.4 gm/dl (6.4-8.2)
[2017-09-19 12:07] LABS: PLATELET COUNT 65 K/uL (130-400)
[2017-09-19 12:08] LABS: EOS % 0.4 %; EOS ABS # 0.01 K/uL (0-0.5); IG# 0.01 K/uL (0.00-0.02); LYMPH % 33.5 %; LYMPH ABS # 0.89 K/uL (1.2-3.4); MONO % 21.8 %; MONO ABS # 0.58 K/uL (0.11-0.59); NEUT % 43.9 %; NEUT ABS # 1.17 K/uL (1.4-6.5)
== END | disposition home or self-care (01) ==
LOC: C.LABSPEC 11:17
PROVIDERS: ATTEND Internal Medicine Hematology & Oncology
DX: C50.411 Malignant neoplasm of upper-outer quadrant of right female breast (principal)

== ENCOUNTER → 2017-10-03 | Outpatient (CLI) | payer OTHER ==
[2017-10-03 11:37] LABS: HEMATOCRIT 30.9 % (37-47); MEAN CELL VOLUME 98.4 fL (80-100); MEAN CORPUSCULAR HEMOGLOBIN 31.8 pg (25-34); MEAN CORPUSCULAR HGB CONC 32.4 g/dl (32-36); MEAN PLATELET VOLUME 9.9 fL (7.4-10.4); PLATELET COUNT 291 K/uL (130-400); RED CELL DISTRIBUTION WIDTH CV 15.8 % (11.5-14.5); RED CELL DISTRIBUTION WIDTH SD 56.5 fL (36.4-46.3); WHITE BLOOD COUNT 5.43 K/uL (4.8-10.8)
[2017-10-03 11:55] LABS: ALBUMIN 3.3 gm/dl (3.4-5.0); ALT/SGPT 26 U/L (12-78); AST/SGOT 21 U/L (15-37); BLOOD UREA NITROGEN 11 mg/dl (7-18); CALCIUM 8.4 mg/dl (8.5-10.1); CARBON DIOXIDE 26 mmol/L (21-32); CREATININE 0.59 mg/dl (0.60-1.20); GLUCOSE 156 mg/dl (70-99); POTASSIUM 3.5 mmol/L (3.5-5.1); SODIUM 141 mmol/L (136-145)
[2017-10-03 12:04] LABS: ALKALINE PHOSPHATASE 78 U/L (45-117); TOTAL PROTEIN 6.7 gm/dl (6.4-8.2)
[2017-10-03 12:07] LABS: BASO % 0.2 %; BASO ABS # 0.01 K/uL (0-0.2); EOS % 1.7 %; EOS ABS # 0.09 K/uL (0-0.5); IG# 0.01 K/uL (0.00-0.02); LYMPH % 10.9 %; LYMPH ABS # 0.59 K/uL (1.2-3.4); MONO % 11.2 %; MONO ABS # 0.61 K/uL (0.11-0.59); NEUT % 75.8 %; NEUT ABS # 4.12 K/uL (1.4-6.5)
== END | disposition home or self-care (01) ==
LOC: C.LABSPEC 11:28
PROVIDERS: ATTEND Internal Medicine Hematology & Oncology
DX: C50.411 Malignant neoplasm of upper-outer quadrant of right female breast (principal)

== ENCOUNTER 2018-10-26 10:01 | Inpatient (IN) ==
[2018-10-26] MEDS ORDERED: ONDANSETRON INJ 2 MG/ML 2 ML VIAL IV PRN (13:49)
[2018-10-26] MEDS ORDERED: ACETAMINOPHEN 325 MG TAB PO PRN (14:00)
[2018-10-26] MEDS ORDERED: MAGNESIUM HYDROXIDE SUSP 30 ML UDC PO PRN (14:00)
[2018-10-26 14:26] LABS: Hematocrit (blood only) 24.9 % (37-47); Hemoglobin 8.2 g/dL (12.0-16.0); Mean Corpuscular Hgb Conc 32.9 g/dL (32-36); Mean Corpuscular Volume 88.3 fL (80-100); Mean Platelet Volume 10.2 fL (7.4-10.4); Platelet Count 187 K/uL (130-400); RDW Coefficient of Variation 17.8 % (11.5-14.5); RDW Standard Deviation 57.3 fL (36.4-46.3); Red Blood Count 2.82 M/uL (4.2-5.4); White Blood Count 6.29 K/uL (4.8-10.8)
[2018-10-26 14:43] LABS: BUN Creatinine Ratio 26.4 (10-20); Calcium 8.1 mg/dl (8.5-10.1); Creatinine Clr Calc Pharmacy 142.7 ml/min; Est GFR (African American) 137.2; Est GFR (Non-African American) 118.4; Magnesium 1.8 mg/dl (1.8-2.4); Potassium 3.8 mmol/L (3.5-5.1)
[2018-10-26 14:44] LABS: Phosphorus 3.1 mg/dl (2.5-4.9)
[2018-10-26 14:50] LABS: ALC (manual) 0.06 K/uL (1.2-3.4); Dohle Bodies 2+; Lymphocytes # (manual) 0.06 K/uL (1.2-3.4); Lymphocytes % (manual) 0.9 %; Monocytes # (manual) 0.06 K/uL (0.11-0.59); Monocytes % (manual) 0.9 %; Neutrophils % (manual) 98.2 %; Toxic Granulation 1+
--- NOTE | 2018-10-26 15:40 | History & Physical Report ---
Date of Service October 26, 2018 Assessment & Plan (1) Weakness: Likely related to chemo Monitor t/c PT/OT evals if no improvement Trop neg x1 EKG WNL CBC with anemia PRP WNL (2) Edema: Appears soft tissue and related to LN mets No airway compromise Pt had PET recently, will hold on further imaging for now unless status changes Kpads, toradol, morphine (3) Anemia: Hb 8.8 on 10/23, 8.4 today Likely related to chemo, but also with bruising noted Repeat in AM No indication for transfusion at this time Likely cause of weakness (4) Hypokalemia: continue home meds Add K to IVF given K is low normal (5) Hypotension: Likely related to dehydration and chemo IVF bolus and then maintenance fluids, monitor (6) Hypomagnesemia: Noted on 10/23 labs, now at low normal on admission Monitor (7) Metastatic breast cancer: mets to LN Chemo weekly on Tuesdays Radiation started 10/24 with plans for M-F tx, but held today due to above Follows with Drs. Holguin and Bruno (8) Neuropathy: continue home med Likely chemo side effect Pt is uncertain of dosage but states it is HS only and has had no dose increases since starting, likely 100mg (9) DVT prophylaxis: SCDs given above History of Present Illness Primary Care Provider: NO PCP 58 y/o F who was sent here from Dr. Holguin's office for weakness. Pt states that she has had intermittent nausea since starting chemo. It is worse on the day of her chemo and then more or less comes and goes. She has no emesis with this and she has been able to eat without issue. She states that today she had much more intense nausea that did not subside before breakfast and she was unable to eat. No emesis, abd pain, diarrhea. She states that she has had some weakness intermittently with her chemo also, but has been able to move around at will and without much issue. Today she was not able to move from seated to standing without assistance, which is new for her. She also noted that she is having increased L sided neck swelling. Pt has started radiation on Monday for LN swelling on the R cervical region. That has improved, however today she noted L sided swelling. She was to have radiation today, but this is on hold until possibly Monday given her current health status. She has bruising along her neck that she states gets worse with the increased swelling. Denies any form of trauma to the region. She has had a bit of difficulty swallowing today only. No breathing issues at all. She has pain to her neck related to the swelling. She has chemo once a week on Tuesdays. Pt has b/l UE and LE tingling since starting her chemo. Pt denies fever, SOB, chest pain, LE pain or swelling. Allergies Allergy/AdvReac Type Severity Reaction Status Date / Time Sulfa (Sulfonamide Allergy Intermediate HIVES Verified 10/18/18 13:39 Antibiotics) tramadol AdvReac Intermediate Nausea/Vomi Verified 10/18/18 13:39 ting Home Medications Home Medications Medication Instructions Recorded Confirmed Type denosumab 120 mg/1.7 mL (70 mg/mL) 120 mg SQ Q7D 02/21/18 10/26/18 History subcutaneous solution pegfilgrastim 6 mg/0.6 mL 6 mg SQ Q7D 02/21/18 10/26/18 History subcutaneous syringe vinorelbine 50 mg/5 mL intravenous 25 mg IV .Weekly ml 02/21/18 10/26/18 History solution ondansetron HCl 8 mg tablet 8 mg PO TID PRN 04/20/18 10/26/18 History acetaminophen [Tylenol] 325 - 650 mg PO Q6H PRN 05/31/18 10/26/18 History oxycodone [Roxicodone] 5 - 10 mg PO Q4 PRN 05/31/18 10/26/18 History potassium chloride 10 meq PO DAILY 05/31/18 10/26/18 History gabapentin 1 cap PO HS 07/04/18 10/26/18 History Past Med/Surg History Medical History Breast CA (Acute) Constipation (Acute) History of hysterectomy (Acute) Migraine (Acute) Surgical History H/O bilateral mastectomy (Acute) Family History Other Cancer Diabetes Heart disease Hypertension Social History Preferred Language: Korean Communication Ability: Effective Beliefs That Will Affect Care: None Current Living Situation: Alone Other Information That Helps Us Care for You: No Feels Safe at Home: Yes Smoking Status: Never smoker Hx Alcohol Use: Yes Alcohol Intake Frequency Comment: 1-2x/week prior, maybe once a month since starting chemo Hx Substance Use: No Review of Systems Review of Systems: Pertinent positives and negatives reviewed in HPI--all others negative Physical Exam Constitutional: WD/WN, vitals as above + ill appearing Eyes: normal visual smith by confrontation and + anicteric sclerae Neck: trachea midline L>>R swelling with substantial bruising L>R Respiratory: normal respiratory effort, lungs clear to auscultation Cardiovascular: Rate/Rhythm: regular rate and regular rhythm Gastrointestinal (Abdomen): Inspection/Auscultation: abdomen not distended Percussion/Palpation: abdomen soft; abdomen nontender Musculoskeletal: Head/Neck/Chest: normocephalic and head atraumatic negative for edema, peripheral pulses intact Skin: no rashes, warm and dry Neurologic: awake; not confused Speech / Cognition: normal speech Psychiatric: Orientation: oriented x 3 Affect: + tearful affect Results & Data Vital Signs (Past 12 Hours) Vital Signs Temp Pulse Pulse Resp BP Pulse Ox 10/26/18 15:00 93 H 10/26/18 12:53 36.6 C 98 H 16 97/64 L 96 Code Status & VTE Plan Code Status Full code VTE Prophylaxis Plan VTE Prophylaxis will be ordered: Yes PG Care Time/CCT Total # of Minutes Spent Total Time Spent with Patient: Total time spent is greater than 50% in coordination of care (as documented) at patient's floor/unit and/or counseling patient:
[2018-10-26] MEDS ORDERED: SODIUM CHLORIDE 0.9% 1000ML 1,000 ML IV ONE (15:54)
[2018-10-26] MEDS: POTASSIUM CHLORIDE 10 MEQ in SODIUM CHLORIDE 0.9% 1000ML 1,000 ML IV SCH (17:30)
[2018-10-26] MEDS: KETOROLAC 30 MG/ML VIAL IM PRN (19:52)
[2018-10-26] MEDS: GABAPENTIN 100 MG CAP PO SCH (20:00)
[2018-10-27] MEDS ORDERED: SODIUM CHLORIDE 0.9% 1000ML 500 ML IV ONE (00:08)
[2018-10-27] MEDS ORDERED: HEPARIN 100 UNIT/ML 5ML FLUSH FLUSH PRN (00:48)
[2018-10-27] MEDS: POTASSIUM CHLORIDE 10 MEQ in SODIUM CHLORIDE 0.9% 1000ML 1,000 ML IV SCH ×2 (04:48→20:36)
[2018-10-27 06:30] LABS: Hematocrit (blood only) 23.5 % (37-47); Hemoglobin 7.7 g/dL (12.0-16.0); Mean Corpuscular Hgb Conc 32.8 g/dL (32-36); Mean Corpuscular Volume 88.7 fL (80-100); Mean Platelet Volume 11.6 fL (7.4-10.4); Platelet Count 214 K/uL (130-400); RDW Standard Deviation 57.9 fL (36.4-46.3); Red Blood Count 2.65 M/uL (4.2-5.4)
[2018-10-27 07:05] LABS: BUN Creatinine Ratio 24.1 (10-20); Calcium 7.3 mg/dl (8.5-10.1); Est GFR (African American) 127.1; Est GFR (Non-African American) 109.7; Magnesium 1.7 mg/dl (1.8-2.4); Potassium 3.7 mmol/L (3.5-5.1)
[2018-10-27 07:13] LABS: Phosphorus 1.9 mg/dl (2.5-4.9)
[2018-10-27 07:37] LABS: Anisocytosis Present; Basophils # (auto) 0.01 K/uL (0-0.2); Basophils % (auto) 0.2 %; Immature Granulocytes # (auto) 0.37 K/uL (0.00-0.02); Immature Granulocytes % (auto) 8.8 %; Lymphocytes # (auto) 0.29 K/uL (1.2-3.4); Lymphocytes % (auto) 6.9 %; Monocytes # (auto) 0.09 K/uL (0.11-0.59); Monocytes % (auto) 2.1 %; Neutrophils # (auto) 3.44 K/uL (1.4-6.5)
[2018-10-27] MEDS ORDERED: POTASSIUM PHOS 3 MMOL/1 ML INFUSION IV STA (08:21)
[2018-10-27] MEDS ORDERED: CALCIUM GLUCONATE 10% 1,000 MG in SODIUM CHLORIDE 0.9% 50 ML IV STA (08:28)
--- NOTE | 2018-10-27 08:37 | Hospitalist Progress Note ---
Date of Service October 27, 2018 Assessment & Plan (1) Weakness: Likely related to chemo Patient appears to be improving. Monitoring her electrolytes. She had electrolyes imbalance. Patient had hypocalcemia, hypophos, hypomagnesmia. Patient had this replaced. (2) Edema: Appears soft tissue and related to LN mets No airway compromise Pt had PET recently, will hold on further imaging for now unless status changes Kpads, toradol, morphine (3) Anemia: Hb 8.8 on 10/23, 8.4 today Likely related to chemo, but also with bruising noted Repeat in AM No indication for transfusion at this time Likely cause of weakness (4) Hypokalemia: continue home meds replaced. (5) Hypotension: Likely related to dehydration and chemo IVF bolus and then maintenance fluids, monitor B/P appears better controlled. (6) Hypomagnesemia: Noted on 10/23 labs, now at low normal on admission Monitor (7) Metastatic breast cancer: mets to LN Chemo weekly on Tuesdays Radiation started 10/24 with plans for M-F tx, but held today due to above Follows with Drs. Holguin and Bruno (8) Neuropathy: continue home med Likely chemo side effect Pt is uncertain of dosage but states it is HS only and has had no dose increases since starting, likely 100mg (9) DVT prophylaxis: SCDs given above Subjective Patient reports feeling better today. She feels more energetic. She is still not at baseline. Patient denies any nausea, vomiting, diarrhea, pain at this moment. Review of Systems Review of Systems: All systems reviewed & are unremarkable except as noted in HPI & below Physical Exam Physical Exam: Constitutional: WD/WN, vitals as above Eyes: normal visual smith by confrontation and + anicteric sclerae Neck: trachea midline L>>R swelling with substantial bruising L>R Respiratory: normal respiratory effort, lungs clear to auscultation Cardiovascular: ate/Rhythm: regular rate and regular rhythm Gastrointestinal (Abdomen): Inspection/Auscultation: abdomen not distended Percussion/Palpation: abdomen soft; abdomen nontender Musculoskeletal: Head/Neck/Chest: normocephalic and head atraumatic negative for edema, peripheral pulses intact Skin: no rashes, warm and dry Neurologic: awake; not confused Speech / Cognition: normal speech Psychiatric: Orientation: oriented x 3 Affect: + tearful affect Results & Data Vital Signs (Past 12 Hours) Vital Signs Temp Pulse Pulse Resp BP BP Pulse Ox 10/27/18 07:42 37.1 C 103 H 20 98/56 L 97 10/27/18 03:07 36.8 C 94 H 18 101/69 96 10/27/18 00:58 94/62 L 10/26/18 23:21 36.8 C 98 H 16 95/62 L 94 10/26/18 23:14 97 H PG Care Time/CCT Total # of Minutes Spent Total Time Spent with Patient: Total time spent is greater than 50% in coordination of care (as documented) at patient's floor/unit and/or counseling patient:
[2018-10-27] MEDS ORDERED: POTASSIUM PHOSPHATE 24 MMOL in SODIUM CHLORIDE 0.9% 500 ML IV ONE (08:45)
[2018-10-27] MEDS ORDERED: DEXAMETHASONE SOD INJ 4 MG/ML VIAL IV STA (09:27)
[2018-10-27] MEDS ORDERED: dexAMETHasone 20 MG in DEXTROSE 5% 25 ML IV ONE (10:00)
--- NOTE | 2018-10-27 10:22 | Consultation Report ---
DATE OF CONSULTATION: 10/27/2018 REASON FOR CONSULTATION: End-stage metastatic breast cancer and declining performance status. HISTORY OF PRESENT ILLNESS: Machelle Russo is a very pleasant 58-year-old female who is under my care at the [facility] for refractory triple negative breast cancer. Machelle as of late had developed an enlarging left cervical mass. She had previously suffered a right cervical lymphadenopathy and was successfully radiated and started on salvage Navelbine weekly. She has been on therapy for several months now. However, in the last several weeks began to manifest enlargement in the left cervical region as well as cutaneous nodules extending down into the nape of her neck and upper chest. For completeness sake, lymphadenopathy was biopsied which again confirmed metastatic breast cancer. She is in the midst of palliative radiation therapy, as she has received 2 fractions at this juncture. She presented to my office yesterday in considerable pain. Contemplating a change of the chemotherapy; however, Machelle has been heavily pretreated and need to choose agents carefully. I had contacted the hospitalist product operations associate requesting direct admission. She was started on IV fluids and administered 1 mg of Dilaudid and IV antinausea medications prior to admission. PAST MEDICAL HISTORY: Significant for triple negative metastatic breast cancer, migraine headaches. PAST SURGICAL HISTORY: Bilateral mastectomies and hysterectomy. MEDICATIONS: Prior to admission include Xgeva 120 mg subQ monthly, Navelbine 25 mg IV weekly, Zofran 8 mg p.o. t.i.d. p.r.n., oxycodone 5-10 mg p.o. q.4 hours p.r.n., potassium chloride 10 mEq p.o. daily, gabapentin 1 capsule p.o. at bedtime, I believe she is on 300 mg dose. ALLERGIES: TRAMADOL, WHICH CAUSES NAUSEA AND VOMITING, AND SULFA DRUGS, WHICH CAUSES HIVES. SOCIAL HISTORY: The patient lives independently. She is a nonsmoker, nondrinker. FAMILY HISTORY: Positive for cancer, diabetes, heart disease and hypertension. REVIEW OF SYSTEMS: Most notably for general decline, generalized weakness, poor appetite. She is not overtly losing weight and intractable left cervical neck pain. SKIN: No other rashes noted. Again, cutaneous lesions extending down from the neck into the upper chest area. HEENT: Negative for headaches. Positive for occasional lightheadedness. No overt dizziness, no acute visual deficits. She wears corrective lenses. Nose: Negative for sinus congestion, rhinorrhea. THROAT: Negative for sore throat, dysphagia. HEART: Negative for coronary artery disease. No current angina or palpitations. PULMONARY: Negative for COPD. No shortness of breath, dyspnea or orthopnea. No cough or hemoptysis. GASTROINTESTINAL: Negative for abdominal pain. She currently denies nausea, no diarrhea or constipation, hematochezia. GENITOURINARY: No hematuria, dysuria or urinary incontinence. MUSCULOSKELETAL: Generalized weakness. No arthralgias or myalgias. No history of rheumatologic disease. ENDOCRINE: Negative for diabetes or thyroid disease. NEUROLOGIC: Negative for seizure, stroke, or migraine headache. HEMATOLOGIC: Positive for anemia. PHYSICAL EXAMINATION: GENERAL: Very pleasant 58-year-old female, in no acute distress. VITAL SIGNS: Temperature 37.1, pulse 97, respiratory rate 20, blood pressure 98/56. SKIN: Warm, dry, noncyanotic without petechia, rash or ecchymosis. Again, she has several cutaneous lesions in the upper portion of her chest extending into the left cervical region, but there is a large lymph node conglomerate. LYMPH: Again, large left cervical mass, otherwise no palpable supraclavicular lymphadenopathy. HEART: Regular rate and rhythm. No clicks, rubs, murmurs or gallops. LUNGS: Clear to auscultation bilaterally. ABDOMEN: Soft, nontender, nondistended. EXTREMITIES: Musculoskeletal strength and pulses are equal in all 4 quadrants. No clubbing, cyanosis or edema. NEUROLOGICALLY: She is awake, alert and oriented x3. Cranial nerves II-XII are intact. LABORATORY DATA: WBC count 4200, hemoglobin 7.7, platelet count 214,000. Sodium 142, potassium 3.7, chloride 112, carbon dioxide 26, BUN 12, creatinine 0.48, phosphorus decreased to 1.9, magnesium decreased at 1.7, calcium decreased at 7.3. IMPRESSION: 1. Intractable left cervical pain attributable to disease progression. 2. Metastatic triple negative breast cancer. 3. Electrolyte dysfunction, hypomagnesemia, hypophosphatemia. 4. Anemia, attributable to prior treatment. PLAN: Machelle is a very pleasant unfortunate 58-year-old female with a metastatic triple negative breast cancer in obvious progression. Machelle has suffered with breast cancer for approximately 6 years. She developed metastatic disease about 3 years ago. Unfortunately, she has been heavily pretreated and options for salvage drugs moving forward are limited. I am considering Doxil in her case as she has not had Adriamycin in quite some time. The risk moving forward is cardiac function. Perhaps while she is admitted, check an echocardiogram which I would do, otherwise as an outpatient to stratify the risk of administering Adriamycin. However, at this point, her disease is terminal and thus I believe Machelle is willing to assume the risk to extend her life. In regards to pain management, did have nursing and dexamethasone 20 mg IV today. She is encouraged to utilize the opiates as much as needed. Her prognosis is exceedingly poor, but again Machelle wishes to continue her fight. Once pain is controlled, I think she would be amenable to return home and can plan to treat her sometime next week. Replace electrolytes as appropriate. Agree with medical management otherwise. We will continue to follow her periodically during her stay. LOGAN
[2018-10-27] MEDS: MAGNESIUM SULFATE / D5W 1 GM/100 ML BAG IV SCH ×2 (10:59→12:21)
[2018-10-27] MEDS: MoRPHine SULFATE 2 MG/ML CARP IV PRN (20:33)
[2018-10-27] MEDS: GABAPENTIN 100 MG CAP PO SCH (20:35)
[2018-10-27] MEDS: KETOROLAC 30 MG/ML VIAL IM PRN (21:59)
[2018-10-28] MEDS: MoRPHine SULFATE 2 MG/ML CARP IV PRN (00:36)
[2018-10-28] MEDS: POTASSIUM CHLORIDE 10 MEQ in SODIUM CHLORIDE 0.9% 1000ML 1,000 ML IV SCH ×3 (01:15→20:45)
[2018-10-28] MEDS: KETOROLAC 30 MG/ML VIAL IM PRN (08:08)
--- NOTE | 2018-10-28 10:11 | Progress Note ---
DATE: 10/28/2018 DIAGNOSES: 1. Intractable left cervical pain attributable to disease progression. 2. Metastatic triple negative breast cancer. 3. Electrolyte dysfunction/hypomagnesemia/hypophosphatemia. 4. Anemia, attributable to prior treatment. SUBJECTIVE: Machelle was seen and examined this morning. She seems to be a bit brighter. However, states she had pretty severe pain exacerbation overnight requiring morphine. Really would like to get her started on a low dose fentanyl patch moving forward. She is somewhat opioid [place], so and therefore would recommend starting her at 12 mcg. She would also like to be discharged if possible. I plan to give her salvage Doxil upon discharge. She will resume radiation therapy tomorrow and possibly even Monday. Nursing reports no overnight difficulties. Overall, she is doing much better than she was on the day of admission and probably will be able to send her home with close direct followup. PHYSICAL EXAMINATION GENERAL: A pleasant 58-year-old female, in no acute distress. VITAL SIGNS: Temperature 36.9, pulse of 102, respiratory rate 20, blood pressure 121/83. SKIN: Without rash or lesion. HEENT: Oral mucosa without erythema or ulceration. NECK: Bulky left cervical lymphadenopathy with cutaneous lesions extending into the anterior chest wall. HEART: Regular rate and rhythm. LUNGS: Clear to auscultation bilaterally. ABDOMEN: Soft, nontender, nondistended. EXTREMITIES: No clubbing, cyanosis or edema. NEUROLOGIC: Grossly intact. IMPRESSION: 1. Intractable left cervical pain attributable to disease progression. 2. Metastatic triple negative breast cancer. 3. Hypomagnesemia/hypophosphatemia. 4. Anemia, attributable to prior treatment. PLAN: Discussed therapeutics moving forward post-discharge with Machelle this morning. Again, unfortunately I have limited options moving forward and therefore plan to administer Doxil single agent. I explained to Machelle this may be somewhat risky as I believe at some point she received Adriamycin previously. Cardiotoxicity can be significant with cumulative dosing. She understands this risk and equally understands if nothing further was done, her disease will progress. Unfortunately, she is terminal; however, desires to extend her life as long as possible while maintaining quality. Pain management is of paramount importance. Would proceed and start her on a low dose fentanyl with breakthrough oxycodone provided perhaps 5-10 mg p.o. every 4 hours as needed. She seems to feel a little bit better with a dose of dexamethasone. Perhaps another small dose today, 10 mg intravenous may prove to be helpful or re-administer another IM dose of Toradol. Again, plans are underway to provide her salvage chemotherapy upon discharge. Unless there are other medical issues, hopefully she can go home today. I have nothing further to add. Thank you for assisting us in the care of this very pleasant, somewhat complex patient.
[2018-10-28] MEDS ORDERED: DEXAMETHASONE SOD PHOSPHATE 10 MG in SYRINGE 0 ML IV ONE (12:00)
[2018-10-28] MEDS ORDERED: fentaNYL 12 MCG/HR TDSY TD SCH (12:00)
[2018-10-28 12:32] LABS: Hematocrit (blood only) 27.9 % (37-47); Mean Corpuscular Hgb Conc 32.3 g/dL (32-36); Mean Corpuscular Volume 88.9 fL (80-100); Mean Platelet Volume 11.5 fL (7.4-10.4); Platelet Count 257 K/uL (130-400); RDW Coefficient of Variation 18.5 % (11.5-14.5); RDW Standard Deviation 59.3 fL (36.4-46.3); Red Blood Count 3.14 M/uL (4.2-5.4); White Blood Count 1.76 K/uL (4.8-10.8)
[2018-10-28 13:06] LABS: BUN Creatinine Ratio 19.8 (10-20); Calcium 8.1 mg/dl (8.5-10.1); Creatinine Clr Calc Pharmacy 108.5 ml/min; Est GFR (African American) 125.4; Est GFR (Non-African American) 108.2; Phosphorus 1.9 mg/dl (2.5-4.9); Potassium 3.2 mmol/L (3.5-5.1)
[2018-10-28] MEDS ORDERED: POTASSIUM PHOS 3 MMOL/1 ML INFUSION IV STA (13:10)
[2018-10-28] MEDS ORDERED: POTASSIUM PHOSPHATE 24 MMOL in SODIUM CHLORIDE 0.9% 500 ML IV ONE (13:45)
[2018-10-28] MEDS: CHECK FENTANYL PATCH PLACEMENT SCH (15:57)
[2018-10-28] MEDS: GABAPENTIN 100 MG CAP PO SCH (20:42)
--- NOTE | 2018-10-28 23:11 | Hospitalist Progress Note ---
Date of Service October 28, 2018 Assessment & Plan (1) Weakness: Likely related to chemo Patient appears to be improving. Monitoring her electrolytes. She had electrolyes imbalance. Patient had hypocalcemia, hypophos, hypomagnesmia. Patient had this replaced. potassium and phos remained low on 10/28. will recheck on 10/29. (2) Edema: Appears soft tissue and related to LN mets No airway compromise Pt had PET recently, will hold on further imaging for now unless status changes Kpads, toradol, morphine (3) Anemia: Hb 8.8 on 10/23, 8.4 today Likely related to chemo, but also with bruising noted Repeat in AM No indication for transfusion at this time Likely cause of weakness (4) Hypokalemia: continue home meds replaced. (5) Hypotension: Likely related to dehydration and chemo IVF bolus and then maintenance fluids, monitor B/P appears better controlled. (6) Hypomagnesemia: Noted on 10/23 labs, now at low normal on admission Monitor (7) Metastatic breast cancer: mets to LN Chemo weekly on Tuesdays Radiation started 10/24 with plans for M-F tx, but held today due to above Follows with Drs. Holguin and Bruno Or fentanyl patch 12 mcg patch will see how patient tolerates this. (8) Neuropathy: continue home med Likely chemo side effect Pt is uncertain of dosage but states it is HS only and has had no dose increases since starting, likely 100mg (9) DVT prophylaxis: SCDs given above Subjective 58yo female reports feeling better today. She has no new complaints. Review of Systems Review of Systems: All systems reviewed & are unremarkable except as noted in HPI & below Physical Exam Physical Exam: Constitutional: WD/WN, vitals as above Eyes: normal visual smith by confrontation and + anicteric sclerae Neck: trachea midline L>>R swelling with substantial bruising L>R Respiratory: normal respiratory effort, lungs clear to auscultation Cardiovascular: ate/Rhythm: regular rate and regular rhythm Gastrointestinal (Abdomen): Inspection/Auscultation: abdomen not distended Percussion/Palpation: abdomen soft; abdomen nontender Musculoskeletal: Head/Neck/Chest: normocephalic and head atraumatic negative for edema, peripheral pulses intact Skin: no rashes, warm and dry Neurologic: awake; not confused Speech / Cognition: normal speech Psychiatric: Orientation: oriented x 3 Results & Data Vital Signs (Past 12 Hours) Vital Signs Temp Pulse Pulse Resp BP BP Pulse Ox 10/28/18 20:00 36.8 C 106 H 18 119/84 98 10/28/18 15:30 36.9 C 101 H 18 115/56 L 95 10/28/18 14:32 105 H 10/28/18 12:52 36.5 C 85 20 116/80 99 PG Care Time/CCT Total # of Minutes Spent Total Time Spent with Patient: Total time spent is greater than 50% in coordination of care (as documented) at patient's floor/unit and/or counseling patient:
[2018-10-29] MEDS: CHECK FENTANYL PATCH PLACEMENT SCH ×3 (00:33→17:10)
[2018-10-29] MEDS: POTASSIUM CHLORIDE 10 MEQ in SODIUM CHLORIDE 0.9% 1000ML 1,000 ML IV SCH (05:59)
[2018-10-29 06:51] LABS: BUN Creatinine Ratio 20.9 (10-20); Calcium 7.4 mg/dl (8.5-10.1); Creatinine Clr Calc Pharmacy 129.2 ml/min; Est GFR (African American) 132.8; Est GFR (Non-African American) 114.6; Magnesium 1.9 mg/dl (1.8-2.4); Phosphorus 2.2 mg/dl (2.5-4.9); Potassium 3.8 mmol/L (3.5-5.1)
[2018-10-29 08:12] LABS: Hematocrit (blood only) 22.9 % (37-47); Hemoglobin 7.5 g/dL (12.0-16.0); Mean Corpuscular Hgb Conc 32.8 g/dL (32-36); Mean Corpuscular Volume 88.1 fL (80-100); Mean Platelet Volume 11.3 fL (7.4-10.4); Platelet Count 271 K/uL (130-400); RDW Coefficient of Variation 18.4 % (11.5-14.5); RDW Standard Deviation 57.8 fL (36.4-46.3); White Blood Count 1.41 K/uL (4.8-10.8)
[2018-10-29 08:33] LABS: Anisocytosis Present; Basophils # (auto) 0.01 K/uL (0-0.2); Basophils % (auto) 0.7 %; Immature Granulocytes # (auto) 0.02 K/uL (0.00-0.02); Immature Granulocytes % (auto) 1.4 %; Lymphocytes # (auto) 0.46 K/uL (1.2-3.4); Lymphocytes % (auto) 32.6 %; Monocytes # (auto) 0.21 K/uL (0.11-0.59); Monocytes % (auto) 14.9 %; Neutrophils # (auto) 0.71 K/uL (1.4-6.5); Neutrophils % (auto) 50.4 %; Ovalocytes 1+
[2018-10-29] MEDS: POT PHOSPHATE MONOBASIC W/ SOD TAB PO SCH ×4 (09:43→20:44)
[2018-10-29] MEDS ORDERED: SODIUM CHLORIDE 0.9% 250 ML IV PRN (11:04)
--- NOTE | 2018-10-29 12:50 | Radiation Oncology Progress Nt ---
Date of Service October 29, 2018 Assessment & Plan (1) Breast cancer: Assessment: Ms. Russo is a 58-year-old female with progressive metastatic breast cancer involving the left neck. She was previously treated with external beam radiation therapy to the right neck which completed in March 2018 with a good clinical response. Most recently, the patient has been on novel being underneath the supervision of Dr. Mendez Holguin. The recommendation was for palliative external beam radiation therapy to the left neck. The patient was seen by Dr. Leone on 10/18/2018 and the patient underwent CT simulation for treatment planning for radiation therapy. The patient did receive 2 fractions of radiation therapy to the left neck and one fraction of radiation therapy to the anterior chest wall. The patient was scheduled to undergo radiation therapy last Monday however she was admitted to the hospital due to dehydration and failure to thrive. The patient has been admitted to the hospital and is also currently neutropenic. Dr. Holguin from medical oncology has seen the patient and has recommended consideration of a new type of chemotherapy in the outpatient setting. I have been asked to evaluate the patient for consideration of further radiation therapy. Recommendation/Plan: I have recommended continuation of palliative external beam radiation therapy to the left neck and anterior chest wall to help with the patient's symptoms. The patient should be reevaluated by medical oncology in the outpatient setting to determine if they are a candidate for further chemotherapy. I believe it would be prudent to bridge her with radiation therapy until a decision is made regarding further chemotherapy given the fact that she is very symptomatic at this point. The patient was in agreement with this plan. We will bring her down for radiation therapy today. Review of Systems Constitutional: Patient continues to complain of significant discomfort re lated to her neck. She has difficulty turning her neck to the left. Physical Exam Lymphatic: Significant left-sided cervical adenopathy with widespread cutaneous subcutaneous nodules noted in the anterior chest wall. Results & Data Vital Signs (Past 12 Hours) Vital Signs Temp Pulse Pulse Resp BP BP Pulse Ox 10/29/18 11:02 36.7 C 97 H 18 109/74 98 10/29/18 07:52 36.7 C 96 H 18 130/84 97 10/29/18 07:00 93 H 10/29/18 04:00 36.8 C 102 H 20 120/80 95
[2018-10-29] MEDS: MoRPHine SULFATE 2 MG/ML CARP IV PRN (12:52)
--- NOTE | 2018-10-29 17:40 | Discharge Summary ---
Date of Service October 29, 2018 Admission HPI Per Admitting Provider 58 y/o F who was sent here from Dr. Holguin's office for weakness. Pt states that she has had intermittent nausea since starting chemo. It is worse on the day of her chemo and then more or less comes and goes. She has no emesis with this and she has been able to eat without issue. She states that today she had much more intense nausea that did not subside before breakfast and she was unable to eat. No emesis, abd pain, diarrhea. She states that she has had some weakness intermittently with her chemo also, but has been able to move around at will and without much issue. Today she was not able to move from seated to standing without assistance, which is new for her. She also noted that she is having increased L sided neck swelling. Pt has started radiation on Monday for LN swelling on the R cervical region. That has improved, however today she noted L sided swelling. She was to have radiation today, but this is on hold until possibly Monday given her current health status. She has bruising along her neck that she states gets worse with the increased swelling. Denies any form of trauma to the region. She has had a bit of difficulty swallowing today only. No breathing issues at all. She has pain to her neck related to the swelling. She has chemo once a week on Tuesdays. Pt has b/l UE and LE tingling since starting her chemo. Pt denies fever, SOB, chest pain, LE pain or swelling. Principal Diagnosis Weakness, metastatic breast cancer Discharge Exam Constitutional WD/WN, vitals as above Neck edematous left neck Respiratory normal respiratory effort, lungs clear to auscultation Cardiovascular RRR, no murmur, no edema Gastrointestinal (Abdomen) Inspection/Auscultation: abdomen normal to inspection and normal bowel sounds; a bdomen not distended Percussion/Palpation: abdomen soft; abdomen nontender Musculoskeletal no cyanosis or clubbing, extremities motor strength 5/5 Skin no rashes, warm and dry Neurologic moves all extremities and awake Psychiatric A+Ox3, euthymic affect Discharge Data Allergies Allergy/AdvReac Type Severity Reaction Status Date / Time Sulfa (Sulfonamide Allergy Intermediate HIVES Verified 10/18/18 13:39 Antibiotics) tramadol AdvReac Intermediate Nausea/Vomi Verified 10/18/18 13:39 ting Consultations 10/26/18 15:40 Consult Hematology Routine 10/29/18 10:42 Consult Radiation Oncology Routine Hospital Course (1) Weakness: Likely related to chemo Patient appears to be improving. Patient had hypocalcemia, hypophos, hypomagnesmia - replaced, will send out on K phos as phos continues to be low and calcium supplement Will replace calcium of 7.4 with 2g calcium gluconate before discharge - patient is having some ongoing weakness but otherwise does not appear to be symptomatic from her hypocalcemia. (2) Edema: Appears soft tissue and related to LN mets No airway compromise Pt had PET recently, will hold on further imaging for now unless status changes Kpads, toradol, morphine - added Started palliative radiation 10/29 (3) Anemia: Hb 7.5 - transfused 1 unit and repeat cbc Likely related to chemo Likely cause of weakness (4) Hypokalemia: continue home meds replaced. (5) Hypotension: Likely related to dehydration and chemo IVF bolus and then maintenance fluids, monitor B/P appears better controlled. (6) Hypomagnesemia: Noted on 10/23 labs, now at low normal on admission Monitor (7) Metastatic breast cancer: mets to LN Chemo weekly on Tuesdays Radiation started 10/29 with plans for M-F tx Follows with Drs. Holguin and Bruno Continue with fentanyl patches - patient tolerating well. (8) Neuropathy: continue home med Likely chemo side effect Pt is uncertain of dosage of her medication at home but states it is HS only and has had no dose increases since starting, likely 100mg - will give neurontin 100 mg HS - patient tolerating well. (9) DVT prophylaxis: SCDs given above Dispo: home - patient reports feeling well enough to return home at this point and really does not wish to stay in the hospital any longer. She has family support at home. Total Time Total Time Spent Total Time Spent (In Minutes): greater than 30 minutes Discharge Plan Discharge Items Patient Disposition: Home - Self-Care Reason For Visit: METASTATIC BREAST CANCER, WEAKNESS AND FATIGUE Discharge Diagnosis: Metastatic breast cancer, weakness and fatigue Activity: Resume your previous activity Activity Comment: gradually as tolerated Non-emergency contact: Primary Care Provider Call non-emergency contact if: you have any medication questions, your symptoms worsen, your pain is not controlled and you have a fever Follow-up/Referrals: Mendez Holguin DO [Physician] - 11/05/18 9:30 am (Please, follow up with Dr. Holguin on MondayNovember 05 at 9:30 am. *If you need to change this appointment, call the office at [phone].) Claire Snowden CRNP [Nurse Practitioner] - 11/08/18 3:20 pm (Please, follow up at [facility] [employer] [facility] with Claire CAM on November 08 at 3:20 pm. *She will be your new primary care provider. Unfortunately, the [employer] [facility] office is not currently accepting new patients. If you have any questions, call the office at [phone].) Diet: Regular Addtl Attending Provider Instructions: Please refer to enclosed information on neutropenia for precautions to take to avoid infection and when to call your doctor. You will go home with a new prescription for a fentanyl patch. Your patch was placed on 10/28. You will replace it every 72 hours. Please refer to the enc losed handout on fentanyl patch usage so that you can safely apply and dispose of your patch. Pending Studies at Discharge: No Stand-Alone Forms: My [facility] Medications and DC Order Prescriptions: New fentanyl 12 mcg/hr Patch 72 Hour 12 mcg transdermal Q3D Qty: 5 RF: 0 Phospha 250 Neutral 250 mg Tablet 1 tab PO QID Qty: 120 RF: 0 gabapentin 100 mg Capsule 100 mg PO HS Qty: 30 RF: 0 Caltrate 600-D Plus Minerals 600 mg calcium- 800 unit-50 mg Tablet 1 tab PO BID Qty: 60 RF: 0 Continued vinorelbine [Navelbine] 50 mg/5 mL solution 25 mg IV .Weekly RF: 0 denosumab [Xgeva] 120 mg/1.7 mL (70 mg/mL) solution 120 mg SQ Q7D RF: 0 pegfilgrastim [Neulasta] 6 mg/0.6mL syringe 6 mg SQ Q7D RF: 0 ondansetron HCl [Zofran] 8 mg tablet 8 mg PO TID PRN (Reason: Nausea) RF: 0 acetaminophen [Tylenol] 325 mg Tablet 325 - 650 mg PO Q6H PRN (Reason: Pain) RF: 0 potassium chloride 10 mEq Tablet Extended Release 10 meq PO DAILY RF: 0 gabapentin 1 cap PO HS RF: 0 Discontinued oxycodone [Roxicodone] 5 mg Tablet 5 - 10 mg PO Q4 PRN (Reason: Pain) RF: 0 Discharge Orders: Discharge Order (Routine); Ordered 10/29/18 Ordered By: Bina Cha/Other Patient Handouts: Fentanyl Transdermal patch - 72 hour, Neutropenia Admission Data Admit Date/Time: 10/26/18 11:46 Attending Provider: Michael Siu Admit Provider: Uday Schmitt Primary Care Provider: PCP,NO Other Providers: Mendez Holguin V ; Linda Roth ; Daniela Carr ; Yong Leone
[2018-10-29] MEDS ORDERED: CALCIUM GLUCONATE 10% 2,000 MG in SODIUM CHLORIDE 0.9% 50 ML IV ONE (20:00)
[2018-10-29] MEDS: GABAPENTIN 100 MG CAP PO SCH (20:44)
[2018-10-29] MEDS ORDERED: CALCIUM 600MG + VIT D 400 IU TAB PO SCH (21:00)
== END 2018-10-29 21:46 | disposition home or self-care (01) | DRG 842 ==
LOC: 2W 11:46 → SUATTDRO 11:46

== ENCOUNTER 2018-11-09 17:16 | Observation (INO) ==
[2018-11-09] MEDS ORDERED: SODIUM CHLORIDE 0.9% 1000ML 1,000 ML IV SCH (18:00)
[2018-11-09 18:38] LABS: Hematocrit (blood only) 28.1 % (37-47); Mean Corpuscular Hemoglobin 28.8 pg (25-34); Mean Corpuscular Volume 90.1 fL (80-100); Mean Platelet Volume 10.9 fL (7.4-10.4); Platelet Count 205 K/uL (130-400); RDW Coefficient of Variation 18.1 % (11.5-14.5); RDW Standard Deviation 58.4 fL (36.4-46.3); Red Blood Count 3.12 M/uL (4.2-5.4); White Blood Count 9.94 K/uL (4.8-10.8)
[2018-11-09 18:51] LABS: INR 1.2 (0.9-1.1); Prothrombin Time 12.4 Seconds (9.0-12.0)
[2018-11-09 18:55] LABS: ALC (manual) 0.35 K/uL (1.2-3.4); ANC (manual) 9.16 K/uL (1.4-6.5); Dohle Bodies 1+; Lymphocytes # (manual) 0.35 K/uL (1.2-3.4); Lymphocytes % (manual) 3.5 %; Monocytes # (manual) 0.43 K/uL (0.11-0.59); Monocytes % (manual) 4.3 %; Neutrophils # (manual) 9.16 K/uL (1.4-6.5); Neutrophils % (manual) 92.2 %; Ovalocytes 1+; Spherocytes 1+; Tear Drop Cells 1+
[2018-11-09 18:56] LABS: Alanine Aminotransferase 14 U/L (12-78); Albumin Level 2.5 gm/dl (3.4-5.0); Aspartate Aminotransferase 38 U/L (15-37); BUN Creatinine Ratio 16.7 (10-20); Blood Urea Nitrogen 9 mg/dl (7-18); Calcium 8.4 mg/dl (8.5-10.1); Carbon Dioxide 27 mmol/L (21-32); Chloride 102 mmol/L (98-107); Creatinine Clr Calc Pharmacy 108.9 ml/min; Est GFR (African American) 122.3; Est GFR (Non-African American) 105.5; Glucose 178 mg/dl (70-99); Magnesium 1.6 mg/dl (1.8-2.4); Potassium 3.3 mmol/L (3.5-5.1); Sodium 137 mmol/L (136-145)
[2018-11-09 19:07] LABS: Albumin Globulin Ratio 0.8 (0.9-2); Alkaline Phosphatase 77 U/L (45-117); Bilirubin,Total 0.5 mg/dl (0.2-1); Total Protein 5.5 gm/dl (6.4-8.2); Troponin I < 0.015 ng/ml (0-0.045)
[2018-11-09] MEDS ORDERED: SODIUM CHLORIDE 0.9% 1000ML 1,000 ML IV ONE (19:38)
[2018-11-09 20:08] LABS: Appearance Urine Clear (Clear); Bilirubin Urine Negative (Negative); Blood Urine Negative (Negative); Color Urine Yellow; Glucose Urine UA Negative (Negative); Ketones Urine Negative (Negative); Leukocyte Esterase Urine Negative (Negative); Nitrite Urine Negative (Negative); Protein Urine Negative (Negative); Specific Gravity Urine 1.008 (1.000-1.030); Urobilinogen Urine Negative (Negative); pH Urine 7.5 (4.5-7.5)
--- NOTE | 2018-11-09 20:17 | Emergency Department Note ---
Entered by Danika Serrano acting as a scribe for History of Present Illness General Chief complaint: Illness Stated complaint: FLUID IN LUNGS, REF BY Source: patient History of Present Illness Onset (ago): day(s) (today) Location: chest Pain Consistency: + other (worsening) Quality: + other (illness) Associated symptoms: + denies other symptoms (diarrhea, dysuria) and + other (heart racing); no chest pain, no fever/chills (fever), no nausea/vomiting and no shortness of breath The patient is a 58 year old female who presents to the Emergency Room with complaints of worsening illness starting today. The patient states that she has breast cancer that has spread to her neck. She states that she is being treated for it with chemotherapy and radiation with her last dose of chemo being 3 days ago. She reports that she was recently admitted for a depletion in electrolytes, dehydration, and the need for a blood transfusion. She reports that she was admitted the and was sent home the . She reports that she was back in the ED for dehydration on the . She states that today she had a chest x-ray done by her PCP which showed a pleural effusion so she was sent here. The patient complains of feeling like her heart is racing. Admits to faint shortness of breath. The patient denies chest pain, nausea, vomiting, diarrhea, dysuria, fever, use of blood thinners, and a history of CHF. Home Medications Home Medications Medication Instructions Recorded Confirmed Type ondansetron HCl 8 mg tablet 8 mg PO TID PRN 04/20/18 11/09/18 History acetaminophen [Tylenol] 325 - 650 mg PO Q6H PRN 05/31/18 11/09/18 History potassium chloride 10 meq PO DAILY 05/31/18 11/09/18 History [id number] 1 tab PO BID #60 tab 10/29/18 11/09/18 Rx [Caltrate 600-D Plus Minerals] fentanyl 12 mcg TRANSDERMAL Q3D #5 ea 10/29/18 11/09/18 Rx gabapentin 100 mg PO HS #30 cap 10/29/18 11/09/18 Rx sod phos di, mono-K phos mono 1 tab PO QID #120 tab 10/29/18 11/09/18 Rx [Phospha 250 Neutral] Allergies Allergy/AdvReac Type Severity Reaction Status Date / Time Sulfa (Sulfonamide Allergy Intermediate HIVES Verified 11/09/18 19:57 Antibiotics) tramadol AdvReac Intermediate Nausea/Vomi Verified 11/09/18 19:58 ting Past Med/Surg History Medical History Breast CA (Acute) Constipation (Acute) History of hysterectomy (Acute) Migraine (Acute) Surgical History H/O bilateral mastectomy (Acute) Family History Brother Myocardial infarction Hodgkins disease Uncle Myocardial infarction Grandmother (Paternal) Heart disease Sister Colon cancer Other Cancer Diabetes Hypertension Social History Preferred Language: Slovenian Communication Ability: Effective Visual Impairment: No Limitations Hearing Ability: Normal Beliefs That Will Affect Care: None marital status: Single Current Living Situation: Family current occupational status: employed current occupation: library technical assistant at [employer] Feels Safe at Home: Yes Smoking Status: Never smoker Second Hand Exposure: No ; Hx Alcohol Use: Yes Alcohol Intake Frequency Comment: 1-2x/week prior, maybe once a month since starting chemo Hx Substance Use: No Dental Care, Regularly: Yes Physical Activity Frequency: Daily Review of Systems See HPI for pertinent positives & negatives. and A total of 10 systems reviewed and were otherwise negative Physical Exam Vital Signs Vital Signs - 24 hr 11/09/18 17:24 11/09/18 18:42 11/09/18 20:00 Temperature 36.7 C Temperature Source Oral Sepsis Recent Fever Within 48 Hours No Sepsis New/Unexplained Change in Mental Status No Sepsis Action Taken by Nursing No Action Required Pulse Rate 130 H Pulse Rate [Apical] 122 H Respiratory Rate 20 20 Blood Pressure 118/78 Blood Pressure [Left Arm] 131/79 Blood Pressure Mean 91 Blood Pressure Mean [Left Arm] 96 Pulse Oximetry 95 95 97 Oxygen Delivery Method Room Air Room Air GENERAL: sitting up in bed, chronically ill appearing, talking in full sentences, nontoxic EYE EXAM: normal conjunctiva OROPHARYNX: no exudate, no erythema, lips, buccal mucosa, and tongue normal and mucous membranes are moist NECK: supple, no nuchal rigidity, no adenopathy, non-tender LUNGS: Diminished breath sounds in right lung. Normal chest wall mechanics HEART: Tachycardic, no murmurs, S1 normal and S2 normal ABDOMEN: abdomen soft, non-tender, normo-active bowel sounds, no masses, no r ebound or guarding. BACK: Back is symmetrical on inspection and there is no deformity, no midline t enderness, no CVA tenderness. SKIN: no rashes and no bruising UPPER EXTREMITIES: upper extremities are grossly normal. LOWER EXTREMITIES: No pitting edema. NEURO EXAM: Normal sensorium, cranial nerves II-XII grossly intact, normal speech, no gross weakness of arms, no gross weakness of legs. Course ED COURSE: Vital signs were reviewed and showed tachycardic. The patients medical record was reviewed The above diagnostic studies were performed and reviewed. ED treatments and interventions as stated above. 1756: The patient was evaluated in room A9B. A complete history and physical examination was performed. 1932: Upon reevaluation, the patient is resting comfortably, but her heart rate is still in the 120s. I discussed my findings with the patient and she understands and agrees with the treatment plan. Based on the patients age, coexisting illnesses, exam and lab findings the decision to treat as an inpatient was made. The patient remained stable while under my care. The patient will be evaluated for further management. 1936: I discussed the patient's case with Dr. Mike DICKENS Hospitalist. She will evaluate the patient for further management. Consultations Consultation #1: I discussed the patient's case with Dr. Mike DICKENS Hospi talist. She will evaluate the patient for further management. Time: 19:37 Administered Medications Discontinued Medications Sodium Chloride (Nss 1000ml) 1,000 mls @ 999 mls/hr IV .Q1H1M [facility] Stop: 11/09/18 19:00 Last Infusion: 11/09/18 19:55 Dose: 0 mls/hr Documented by: [id number] Admin: 11/09/18 18:39 Dose: 999 mls/hr Documented by: [id number] Medical Decision Making Differential Diagnosis Differential Diagnosis includes but is not limited to dehydration, stroke, anemia, hypoglycemia, hyponatremia, hypernatremia, urinary tract infection, pneumonia, bronchitis, sepsis, gastroenteritis, additional abdominal pathology, metabolic abnormalities and infections. Medical Records Attestation: I reviewed the patient's medical records. Home Medications Current Medication List: was personally reviewed by me Laboratory Data Attestation: I reviewed the patient's lab results. Result diagrams: 11/09/18 18:31 11/09/18 18:31 Lab Results 11/09/18 11/09/18 11/09/18 Range/Units 18:31 18:31 18:31 WBC 9.94 (4.8-10.8) K/uL RBC 3.12 L (4.2-5.4) M/uL Hgb 9.0 L (12.0-16.0) g/dL Hct 28.1 L (37-47) % MCV 90.1 (80-100) fL MCH 28.8 (25-34) pg MCHC 32.0 (32-36) g/dL RDW Std Deviation 58.4 H (36.4-46.3) fL RDW Coeff of Dionicio 18.1 H (11.5-14.5) % Plt Count 205 (130-400) K/uL MPV 10.9 H (7.4-10.4) fL Neutrophils % (Manual) 92.2 % Lymphocytes % (Manual) 3.5 % Monocytes % (Manual) 4.3 % Neutrophils # (Manual) 9.16 H (1.4-6.5) K/uL Total Absolute Neuts 9.16 H (1.4-6.5) K/uL Lymphocytes # (Manual) 0.35 L (1.2-3.4) K/uL Total Abs Lymphocytes 0.35 L (1.2-3.4) K/uL Monocytes # (Manual) 0.43 (0.11-0.59) K/uL Dohle Bodies 1+ Spherocytes 1+ Tear Drop Cells 1+ Ovalocytes 1+ PT 12.4 H (9.0-12.0) Seconds INR 1.2 H (0.9-1.1) Sodium 137 (136-145) mmol/L Potassium 3.3 L (3.5-5.1) mmol/L Chloride 102 (98-107) mmol/L Carbon Dioxide 27 (21-32) mmol/L Anion Gap 8.0 (3-11) BUN 9 (7-18) mg/dl Creatinine 0.54 L (0.6-1.2) mg/dl Est Cr Clr Drug Dosing 108.9 ml/min Est GFR ( Amer) 122.3 Est GFR (Non-Af Amer) 105.5 BUN/Creatinine Ratio 16.7 (10-20) Glucose 178 H (70-99) mg/dl Calcium 8.4 L (8.5-10.1) mg/dl Magnesium 1.6 L (1.8-2.4) mg/dl Total Bilirubin 0.5 (0.2-1) mg/dl AST 38 H (15-37) U/L ALT 14 (12-78) U/L Alkaline Phosphatase 77 (45-117) U/L Troponin I < 0.015 (0-0.045) ng/ml Total Protein 5.5 L (6.4-8.2) gm/dl Albumin 2.5 L (3.4-5.0) gm/dl Globulin 3.0 (2.5-4.0) gm/dl Albumin/Globulin Ratio 0.8 L (0.9-2) TSH 2.060 (0.300-4.500) uIu/ml ECG Data Attestation: I personally reviewed and interpreted this ECG as follows: Indication: tachycardia Rate (beats per minute): 123 Rhythm: sinus tachycardia Findings: + other (normal axis); no PVC Blood Pressure Blood Pressure Findings: Normal blood pressure Blood Pressure Disposition: did not require urgent referral MDM Narrative Patient is a 58-year-old female with a past medical history of metastatic breast cancer the presents the ER referred in by PCP for a large pleural effusion on a follow-up visit and chest x-ray performed today. She also admits that her heart is racing and on exam vitals heart rate is in the 130s. IV was established blood work was obtained and showed mild anemia at 9.0 consistent with previous. INR was unremarkable. BMP with mild hypokalemia. Magnesium was slightly low at 1.6. LFTs were unremarkable. Troponin was negative. TSH unremarkable. UA negative. Chest x-ray was reviewed and did show a large right pleural effusion. She was given 2 L IV fluids. Tachycardia persisted. With this and the pleural effusion which I do believe is malignant she was discussed with the hospitalist and updated bedside for observation. Impression & Plan Pleural effusion, Weakness, Breast cancer, Tachycardia Discharge Plan Visit Data Chief Complaint: Illness Stated Complaint: FLUID IN LUNGS, REF BY ED Provider: Wilber Pressley Discharge Problem: Pleural effusion, Weakness, Breast cancer, Tachycardia Patient Disposition: Being Evaluated by Hospitalist Forms Stand Alone Forms: My [facility] Prescriptions Prescriptions: No Action ondansetron HCl [Zofran] 8 mg tablet 8 mg PO TID PRN (Reason: Nausea) RF: 0 acetaminophen [Tylenol] 325 mg Tablet 325 - 650 mg PO Q6H PRN (Reason: Pain) RF: 0 potassium chloride 10 mEq Tablet Extended Release 10 meq PO DAILY RF: 0 fentanyl 12 mcg/hr Patch 72 Hour 12 mcg transdermal Q3D Qty: 5 RF: 0 Phospha 250 Neutral 250 mg Tablet 1 tab PO QID Qty: 120 RF: 0 gabapentin 100 mg Capsule 100 mg PO HS Qty: 30 RF: 0 Caltrate 600-D Plus Minerals 600 mg calcium- 800 unit-50 mg Tablet 1 tab PO BID Qty: 60 RF: 0 Referrals Referrals: Claire Snowden CRNP [Primary Care Provider] - Discharge Problem: Breast cancer Qualifiers: Breast location: unspecified site of breast Estrogen receptor status: unspecified Patient sex: female Laterality: unspecified laterality Qualified Code(s): C50.919 - Malignant neoplasm of unspecified site of unspecified female breast The scribe's documentation has been prepared under my direction and personally reviewed by me in its entirety. I confirm that the note above accurately reflects all work, treatment, procedures, and medical decision making performed by me.
--- NOTE | 2018-11-09 20:54 | History & Physical Report ---
Date of Service November 09, 2018 Assessment & Plan (1) Pleural effusion: Patient is a very pleasant 58 year old female PMHx Metastatic Breast Cx BRCA1(+) triple negative, s/p b/l mastectomy, s/p total hysterectomy presenting initially with chief complaint of shortness of breath. Dyspnea/Pleural Effusion -Moderate pleural effusion on R and small on L -Likely contributing to her current and previously increasing dyspnea. -?Metastatic in origin vs infiltrative/exudative process. -Patient did have an increased WBC of 9.94 (baseline leukopenic) with predominately neutrophils. -?Antibiotic coverage pending pleural effusion composition. -Thoracic Surgery consulted, appreciate recs -Patient NPO after midnight for ?thoracocentesis in the AM. -Fentanyl Patch for pain control last placed 11/08/18, will be changed 11/11/18 (3 total days). -Home Gabapentin for neuropathy in hands and feet. Metastatic Breast Cancer -S/P B/L Mastectomy and total Hysterectomy -BRCA1 (+) and Triple Negative metastatic cancer -Radiation therapy last Monday, Chemo last Monday, Neulasta injection last Monday. -?Contribution to current pleural effusion Hypokalemia -K 3.3 on presentation -40meq K ordered, will recheck and replenish as needed. -Patient does take home daily K. Hypomagnesemia -1.6 Mag on presentation. -2gm Mag ordered, will recheck and replenish as needed. Dispo: Med/Surg w/ Telemetry FEN: Regular diet, NPO after midnight DVT: Enoxaparin Code: Full (2) Metastatic breast cancer: (3) Hypokalemia: (4) Hypomagnesemia: History of Present Illness Chief Complaint: Shortness of Breath Primary Care Provider: DORINA Spangler Patient is a very pleasant 58 year old female PMHx Metastatic Breast Cx BRCA1(+) triple negative, s/p b/l mastectomy, s/p total hysterectomy presenting initially with chief complaint of shortness of breath. Patient states that she was seen in at her PCP's office the day prior with complaints of increasing SOB. An x-ray there demonstrated mild pulmonary edema and the patient was instructed to go to the ED if her symptoms worsened. She states that she was called around 16:00 today by her PCP's office and instructed to go to the ED since her SOB had not been improving. While in the ED an X-ray showed a moderate R and small L pleural effusions with bibasilar densities that favored atelectasis from pleural effusions. Currently patient is seated comfortably in bed and notes that while she has slight SOB, she is able to move around and hold a conversation without becoming too winded. She denies any current pain. Also of note, patient states that she had her last treatment of Radiation on Monday, Chemotherapy on Monday, and Neulasta injection on Monday. Allergies Allergy/AdvReac Type Severity Reaction Status Date / Time Sulfa (Sulfonamide Allergy Intermediate HIVES Verified 11/09/18 19:57 Antibiotics) tramadol AdvReac Intermediate Nausea/Vomi Verified 11/09/18 19:58 ting Home Medications Home Medications Medication Instructions Recorded Confirmed Type ondansetron HCl 8 mg tablet 8 mg PO TID PRN 04/20/18 11/09/18 History acetaminophen [Tylenol] 325 - 650 mg PO Q6H PRN 05/31/18 11/09/18 History potassium chloride 10 meq PO DAILY 05/31/18 11/09/18 History [id number] 1 tab PO BID #60 tab 10/29/18 11/09/18 Rx [Caltrate 600-D Plus Minerals] fentanyl 12 mcg TRANSDERMAL Q3D #5 ea 10/29/18 11/09/18 Rx gabapentin 100 mg PO HS #30 cap 10/29/18 11/09/18 Rx sod phos di, mono-K phos mono 1 tab PO QID #120 tab 10/29/18 11/09/18 Rx [Phospha 250 Neutral] Past Med/Surg History Medical History Breast CA (Acute) Constipation (Acute) Migraine (Acute) Surgical History S/P tonsillectomy H/O bilateral mastectomy (Acute) History of hysterectomy (Acute) Family History Brother Myocardial infarction Hodgkins disease Uncle Myocardial infarction Grandmother (Paternal) Heart disease Sister Colon cancer Other Cancer Diabetes Hypertension Social History Preferred Language: Spanish Communication Ability: Effective Visual Impairment: No Limitations Hearing Ability: Normal Beliefs That Will Affect Care: None marital status: Single Current Living Situation: Family current occupational status: employed current occupation: registered dental assistant rda at [employer] Feels Safe at Home: Yes Smoking Status: Never smoker Second Hand Exposure: No ; Hx Alcohol Use: Yes Alcohol Intake Frequency Comment: 1-2x/week prior, rarely since starting chemo Hx Substance Use: No Dental Care, Regularly: Yes Physical Activity Frequency: Daily Review of Systems Constitutional: + chills (chronic) and + fatigue; no fever and no sweats Eyes: no eye pain and no worsening vision Ear, Nose, Mouth, Throat: + facial pain (R side neuropathy) and + neck lump (Swelling and hard lymph nodes b/l ); no ear pain, no tinnitus, no dizziness and no sore throat Respiratory: + cough and + dyspnea; no chest congestion, no change in sputum, no hemoptysis, no pain on inspiration and no pain with cough Cardiovascular: + dyspnea, + dyspnea on exertion and + edema; no chest pain, no chest pain at rest, no orthopnea and no calf pain Gastrointestinal: no abdominal pain, no nausea, no vomiting, no constipation and no diarrhea/loose stools Genitourinary: no dysuria and no hematuria Physical Exam Constitutional: well developed, well nourished and cooperative Eyes: PERRL, conjunctivae normal, anicteric sclerae normal visual smith by confrontation ENMT: Ears: no hearing impairment Mouth: no oropharynx abnormality and no oral mucosal abnormality Neck: + anterior neck swelling and + submandibular swelling; neck nontender Significant swelling and hardened cervical and submandibular lymph nodes L > R. Respiratory: normal respiratory effort and + cough; does not use accessory muscles Auscultation: + diminished lung sounds (Diminished in mid-low R lung field and low L lung field) Cardiovascular: Rate/Rhythm: + tachycardic (126bpm ) Heart Sounds: normal S1 and normal S2; no murmur Vessels: normal peripheral pulses, posterior tibial pulses present, dorsalis pedis pulses present, brachial pulses present and radial pulses present Extremities: + edema (+1 to the ankle); no calf tenderness Gastrointestinal (Abdomen): normal bowel sounds, soft, nontender, no hepatospl enomegaly Psychiatric: A+Ox3, euthymic affect Results & Data Vital Signs (Past 12 Hours) Vital Signs Temp Pulse Pulse Resp BP BP Pulse Ox 09/27/19 20:00 122 H 20 131/79 97 11/09/18 18:42 95 11/09/18 17:24 36.7 C 130 H 20 118/78 95 Laboratory Results Abnormal lab results 11/09/18 11/09/18 11/09/18 Range/Units 18:31 18:31 18:31 RBC 3.12 L (4.2-5.4) M/uL Hgb 9.0 L (12.0-16.0) g/dL Hct 28.1 L (37-47) % RDW Std Deviation 58.4 H (36.4-46.3) fL RDW Coeff of Dionicio 18.1 H (11.5-14.5) % MPV 10.9 H (7.4-10.4) fL Neutrophils # (Manual) 9.16 H (1.4-6.5) K/uL Total Absolute Neuts 9.16 H (1.4-6.5) K/uL Lymphocytes # (Manual) 0.35 L (1.2-3.4) K/uL Total Abs Lymphocytes 0.35 L (1.2-3.4) K/uL PT 12.4 H (9.0-12.0) Seconds INR 1.2 H (0.9-1.1) Potassium 3.3 L (3.5-5.1) mmol/L Creatinine 0.54 L (0.6-1.2) mg/dl Glucose 178 H (70-99) mg/dl Calcium 8.4 L (8.5-10.1) mg/dl Magnesium 1.6 L (1.8-2.4) mg/dl AST 38 H (15-37) U/L Total Protein 5.5 L (6.4-8.2) gm/dl Albumin 2.5 L (3.4-5.0) gm/dl Albumin/Globulin Ratio 0.8 L (0.9-2) Code Status & VTE Plan Code Status FULL VTE Prophylaxis Plan VTE Prophylaxis will be ordered: Yes Supervising Physician Co-Signing Physician Notes Patient seen and examined, chart reviewed, case discussed with Dr. Byrne and I agree with his assessment and plan as documented above. Briefly, patient is an unfortunate 58yo C female with history of refractory triple negative breast cancer. She is on salvage therapy with Denosumab and receives Neulasta as well. She follows regularly with Dr. Holguin. She is receiving palliative XRT for enlarging LAD of left neck and chest. She presents today with SOB, KAUR and dry cough. Xray obtained in the ER with moderate right pleural effusion, ?compressive atelectasis On physical exam she is afebrile, tachycardic, no respiratory distress, saturating 95% on room air Gen: NAD, non-toxic in appearance HEENT: NC/AT, PERRL, MMM, +firm LAD of left neck Skin: XRT changes noted to skin of left neck and chest, no rash/bleeding Heart: +S1/S2, regular, tachycardic, no m/r/g Lungs: markedly diminished breath sounds in right lung field with dullness to percussion, no rhonchi/wheezes Abd: +BS, soft, NT/ND Ext: trace edema Labs and images reviewed. Assessment/Plan: 58yo C female with progressive metastatic triple negative breast cancer, presently on chemotherapy and palliative XRT for cervical LAD presenting with KAUR/SOB, moderate sized right pleural effusion. Effusion is most likely malignant in nature. She is presently with no evidence of respiratory distress, speaking in complete sentences, adequate oxygenation on room air -Admit to medical floor with telemetry monitoring, continuous pulse oximetry, incentive spirometry -Will consult Dr. Leonard for thoracentesis in the AM. Should patient decline overnight will perform a bedside thoracentesis -Electrolyte repletion, Mg and K -Management of pain and nausea -Remainder of plan as above PG Care Time/CCT Total # of Minutes Spent Total Time Spent with Patient: Total time spent is greater than 50% in coordination of care (as documented) at patient's floor/unit and/or counseling patient: Resident Activity Tracking Resident Involvement: Resident Care Provided Care Provided: Adult Hospital Medicine
[2018-11-09] MEDS ORDERED: ACETAMINOPHEN 325 MG TAB PO PRN (21:58)
[2018-11-09] MEDS ORDERED: ONDANSETRON INJ 2 MG/ML 2 ML VIAL IV PRN (21:58)
[2018-11-09] MEDS ORDERED: POLYETHYLENE (MIRALAX) 17 GM PACK PO PRN (21:58)
[2018-11-09] MEDS ORDERED: POTASSIUM CHLORIDE PWD 20 MEQ PACK PO ONE (21:58)
[2018-11-09] MEDS ORDERED: fentaNYL 12 MCG/HR TDSY TD SCH (22:15)
[2018-11-09] MEDS: POT PHOSPHATE MONOBASIC W/ SOD TAB PO SCH (22:48)
[2018-11-09] MEDS: GABAPENTIN 100 MG CAP PO SCH (22:48)
[2018-11-09] MEDS: ENOXAPARIN INJ 40 MG/0.4 ML SYR SQ SCH ×2 (22:49→22:52)
[2018-11-09] MEDS: CALCIUM 600MG + VIT D 400 IU TAB PO SCH (22:49)
[2018-11-09] MEDS: MAGNESIUM SULFATE / D5W 1 GM/100 ML BAG IV SCH (22:49)
[2018-11-10] MEDS: MAGNESIUM SULFATE / D5W 1 GM/100 ML BAG IV SCH (00:23)
[2018-11-10] MEDS: HEPARIN 100 UNIT/ML 5ML FLUSH FLUSH PRN (05:48)
[2018-11-10 06:37] LABS: Hematocrit (blood only) 27.9 % (37-47); Hemoglobin 8.9 g/dL (12.0-16.0); Mean Corpuscular Hemoglobin 28.8 pg (25-34); Mean Corpuscular Hgb Conc 31.9 g/dL (32-36); Mean Corpuscular Volume 90.3 fL (80-100); Mean Platelet Volume 10.3 fL (7.4-10.4); Platelet Count 187 K/uL (130-400); RDW Coefficient of Variation 18.5 % (11.5-14.5); RDW Standard Deviation 60.3 fL (36.4-46.3); Red Blood Count 3.09 M/uL (4.2-5.4); White Blood Count 8.91 K/uL (4.8-10.8)
[2018-11-10 07:16] LABS: BUN Creatinine Ratio 13.4 (10-20); Calcium 7.9 mg/dl (8.5-10.1); Creatinine Clr Calc Pharmacy 152.3 ml/min; Est GFR (African American) 136.1; Est GFR (Non-African American) 117.4; Potassium 3.6 mmol/L (3.5-5.1)
[2018-11-10 07:24] LABS: ALC (manual) 0.39 K/uL (1.2-3.4); Basophils # (manual) 0.08 K/uL (0-0.2); Basophils % (manual) 0.9 %; Dohle Bodies 1+; Eosinophils # (manual) 0.08 K/uL (0-0.5); Eosinophils % (manual) 0.9 %; Lymphocytes # (manual) 0.39 K/uL (1.2-3.4); Lymphocytes % (manual) 4.4 %; Monocytes # (manual) 0.16 K/uL (0.11-0.59); Monocytes % (manual) 1.8 %; Poikilocytosis Present
[2018-11-10] MEDS ORDERED: SODIUM CHLORIDE 0.65% NA SOLN 45 ML (OCEAN) ONE (08:24)
--- NOTE | 2018-11-10 09:39 | XRay Report ---
XR chest 1V portable HISTORY: post thoracentesis COMPARISON: Chest 11/09/2018. FINDINGS: Interval decrease in size in the small right pleural effusion status post thoracentesis. No pneumothorax. Surgical clips within the right axilla. The heart is mildly enlarged. Small left pleur al effusion persists. There is mild central pulmonary vascular congestion, unchanged. Left jugular Po rt-A-Cath terminates at the SVC. IMPRESSION: Interval decrease in size in the small right pleural effusion status post thoracentesis. No pneumotho rax. Electronically signed by: Claus Rico M.D. 11/10/2018 9:38 AM
[2018-11-10] MEDS ORDERED: SODIUM CHLORIDE 0.65% NA SOLN 45 ML (OCEAN) PRN (09:45)
[2018-11-10] MEDS: CHECK FENTANYL PATCH PLACEMENT SCH ×3 (09:47→16:40)
[2018-11-10] MEDS: CALCIUM 600MG + VIT D 400 IU TAB PO SCH ×2 (09:48→20:29)
[2018-11-10] MEDS: POT PHOSPHATE MONOBASIC W/ SOD TAB PO SCH ×4 (09:48→20:30)
[2018-11-10 10:20] LABS: Glucose Pleural Fluid 106 mg/dl
[2018-11-10 10:26] LABS: LDH Pleural Fluid 912 U/L; Total Protein Pleural Fluid 2.9 g/dl
--- NOTE | 2018-11-10 10:40 | Operative Report ---
DATE OF OPERATION: 11/10/2018 PROCEDURE: Ultrasound-guided right thoracentesis. SURGEON: Alexander Leonard MD. ANESTHESIA: Local. SPECIFICS OF PROCEDURE: The patient seated upright. After appropriate consent had been obtained and timeout had been called, an ultrasound was used to find a good window into the right pleural cavity and a large amount of homogenous fluid was noted. The patient was prepped and draped in usual sterile fashion. A 25-gauge needle with 1% Xylocaine was used to raise a skin wheal and a larger bore needle was used to anesthetize the deeper muscles and subcutaneous tissue, we got free flowing serous fluid. Guidewire was inserted through the needle and the needle removed. A triple-lumen catheter was slid over the guidewire and the guidewire removed. 1500 mL of a light yellow-colored fluid was drained, pH was 7.40. She had some reexpansion pain and it appeared that we drained all of it as we could get no further fluid. She had some reexpansion pain and some coughing, but tolerated it very well. The catheter was removed. An antimicrobial dressing was placed. Chest x-ray is pending. I attest to the content of the Intraoperative Record and any orders documented therein. Any exception s are noted below.
[2018-11-10 10:53] LABS: Appearance Pleural Fluid CLEAR; Color Pleural Fluid YELLOW; Mononuclear WBC Pleural 61.2 %; Polynuclear WBC Pleural 38.8 %; RBC Pleural Fluid (A) < 3000 /uL; Source Pleural Fluid RIGHT LUNG; WBC Pleural Fluid (A) 452 /uL
--- NOTE | 2018-11-10 11:02 | Consultation Report ---
DATE OF CONSULTATION: 11/10/2018 REASON FOR CONSULTATION: Right pleural effusion. HISTORY OF PRESENT ILLNESS: The patient is an unfortunate 58-year-old female who has a history of metastatic breast cancer, has had bilateral mastectomies, who presents with shortness of breath. She is not requiring oxygen, but her primary care physician noted decreased breath sounds and got an x-ray which showed a moderate to large right pleural effusion and she was admitted to the hospital. The patient was kept on oxygen last night and was removed and her saturations are in the low 90s. I was asked to evaluate her. Her biggest complaint actually is a cough. She denies fevers. She does have shortness of breath especially with exertion. PAST MEDICAL HISTORY: 1. Metastatic breast carcinoma. 2. History of migraine headaches. PAST SURGICAL HISTORY: 1. Bilateral mastectomies. 2. Total abdominal hysterectomy. 3. Tonsillectomy. 4. Insertion of a Port-A-Cath. MEDICATIONS (AT HOME): 1. Potassium supplements. 2. Gabapentin. 3. Phospha 250. 4. Fentanyl patches. 5. Zofran for nausea. ALLERGIES: TRAMADOL WHICH CAUSES NAUSEA AND VOMITING, WHICH IS NOT REALLY AN ALLERGY, BUT SULFA DOES CAUSE HIVES. SOCIAL HISTORY: The patient is a nonsmoker. 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 She lives with her niece. She has no children. FAMILY MEDICAL HISTORY: The patient's mother at 62 from metastatic carcinoma and she is not sure where the origin was. It was diagnosed and she quite quickly. Her father is healthy. She had a brother who at age 51 from myocardial infarction, also suffering Hodgkin's lymphoma. She had an uncle with myocardial infarction. She did have a sister who had colon cancer. She has 3 nieces and nephews that are all healthy. REVIEW OF SYSTEMS: The patient states that she had no fever or sweats, but has had felt some chills. She has also been quite fatigued. She wears glasses, but has had no change in her vision or her hearing. The patient does have right facial pain from an apparent neuropathy and has supraclavicular nodes and has also had received radiation therapy. She denied any decrease in hearing acuity. She has had increasing cough and dyspnea, but no real production of purulent sputum or hemoptysis. She denies palpitations. She denies chest pain. She has had some mild peripheral edema, which is improved since her admission last night. She denies nausea, vomiting or diarrhea. She denies any neurologic deficits. She has had no seizures. She does have a history of migraines, but not recently. PHYSICAL EXAMINATION: GENERAL: This is a female who appears older than her stated age of 58. HEENT: She has alopecia. She wears glasses. Extraocular movements are intact. Pupils are equal, round and reactive. She has no evidence of oral candidiasis and her tongue is midline. Her teeth are in good repair. NECK: She has obvious supraclavicular lymph node involvement and the skin is hardened from radiation to her neck and supraclavicular areas. She has no bruits. SKIN: She has well healed mastectomy incisions. She has a port in the left infraclavicular area. HEART: She has a regular rhythm, but is tachycardic at about 115 beats per minute. LUNGS: She has markedly decreased breath sounds on the right compared to the left. She has no wheezing. ABDOMEN: Soft, nontender. EXTREMITIES: She has trace edema of her lower extremities and excellent peripheral pulses. No joint effusions. NEUROLOGIC: Completely intact. ASSESSMENT AND PLAN: Right pleural effusion, which I suspect to be malignant in a patient with triple negative metastatic breast cancer. We will perform a thoracentesis today.
[2018-11-10] MEDS: BENZONATATE 100 MG CAPSULE PO SCH ×3 (12:32→20:29)
--- NOTE | 2018-11-10 17:01 | Family Medicine Progress Note ---
Date of Service November 10, 2018 Assessment & Plan (1) Pleural effusion: 58 year old female PMHx Metastatic Breast Cx BRCA1(+) triple negative, s/p b/l mastectomy, s/p total hysterectomy presenting with shortness of breath especially on exertion Dyspnea and cough likely secondary to pleural effusion vs. lung metastases -Found to have Moderate pleural effusion on R and small on L -s/p thoracentesis today, 1500cc removed -Likely malignant in nature: Light's criteria - exudative based on analysis -Cultures pending -WBC of 8.9 (baseline leukopenic 1.95 on 11/10/18) with predominately neutrophils -Pain control: Fentanyl Patch for pain control last placed 11/08/18, will be changed 11/11/18 (3 total days) also on Gabapentin for neuropathy in hands and feet -On tessalon perles to help with cough -Remains on RA Metastatic Breast Cancer -S/P B/L Mastectomy and total Hysterectomy -BRCA1 (+) and Triple Negative metastatic cancer -Radiation therapy last Monday, Chemo last Monday, Neulasta injection last Monday. -?Contribution to current pleural effusion Hypokalemia-improved Hypomagnesemia- improved Dispo: Med/Surg w/ Telemetry FEN: Regular diet DVT: Enoxaparin Code: Full (2) Metastatic breast cancer: (3) Hypokalemia: (4) Hypomagnesemia: Supervising Physician Co-Signing Physician Notes Resident Physician Supervision Note: I independently interviewed and examined the patient and verified the muñoz history and physical, reviewed labs and image studies, discussed the case with the resident Dr. Costa and agree with the findings and care plan. Subjective This AM s/p thoracentesis pt reported improved breathing and palpitations. Reported mild SIGALA. Pt also had dizziness and nausea during procedure which improved after receiving a dose of zofran. Per pt next cycle of chemo/radiation is on december 04, she is on 28 day treatment cycles Otherwise denies any f/c, cp, abdominal pain, vomiting, diarrhea, constipation, dysuria Review of Systems Review of Systems: As per HPI Physical Exam Physical Exam: General: In NAD Neuro: A&O x 4 Pulm: RML/RLL crackles appreciated, diminished bibasilar breath sounds CV: RRR, no m/r/g Abdomen:+BS, no TTP in all quadrants, non-distended LE: no LE edema, no calf TTP Skin: neck and upper shoulder skin metastases Results & Data Vital Signs (Past 12 Hours) Vital Signs Temp Pulse Resp BP Pulse Ox 11/10/18 15:00 37.0 C 115 H 16 114/78 92 11/10/18 11:48 36.7 C 118 H 17 114/80 90 11/10/18 07:00 37.1 C 113 H 16 128/83 91 Laboratory Results Abnormal lab results 11/09/18 11/09/18 11/09/18 Range/Units 18:31 18:31 18:31 RBC 3.12 L (4.2-5.4) M/uL Hgb 9.0 L (12.0-16.0) g/dL Hct 28.1 L (37-47) % MCHC (32-36) g/dL RDW Std Deviation 58.4 H (36.4-46.3) fL RDW Coeff of Dionicio 18.1 H (11.5-14.5) % MPV 10.9 H (7.4-10.4) fL Neutrophils # (Manual) 9.16 H (1.4-6.5) K/uL Total Absolute Neuts 9.16 H (1.4-6.5) K/uL Lymphocytes # (Manual) 0.35 L (1.2-3.4) K/uL Total Abs Lymphocytes 0.35 L (1.2-3.4) K/uL PT 12.4 H (9.0-12.0) Seconds INR 1.2 H (0.9-1.1) Potassium 3.3 L (3.5-5.1) mmol/L BUN (7-18) mg/dl Creatinine 0.54 L (0.6-1.2) mg/dl Glucose 178 H (70-99) mg/dl Calcium 8.4 L (8.5-10.1) mg/dl Magnesium 1.6 L (1.8-2.4) mg/dl AST 38 H (15-37) U/L Lactate Dehydrogenase (84-246) U/L Total Protein 5.5 L (6.4-8.2) gm/dl Albumin 2.5 L (3.4-5.0) gm/dl Albumin/Globulin Ratio 0.8 L (0.9-2) 11/10/18 11/10/18 11/10/18 Range/Units 05:48 05:48 05:48 RBC 3.09 L (4.2-5.4) M/uL Hgb 8.9 L (12.0-16.0) g/dL Hct 27.9 L (37-47) % MCHC 31.9 L (32-36) g/dL RDW Std Deviation 60.3 H (36.4-46.3) fL RDW Coeff of Dionicio 18.5 H (11.5-14.5) % MPV (7.4-10.4) fL Neutrophils # (Manual) 8.20 H (1.4-6.5) K/uL Total Absolute Neuts 8.20 H (1.4-6.5) K/uL Lymphocytes # (Manual) 0.39 L (1.2-3.4) K/uL Total Abs Lymphocytes 0.39 L (1.2-3.4) K/uL PT (9.0-12.0) Seconds INR (0.9-1.1) Potassium (3.5-5.1) mmol/L BUN 5 L (7-18) mg/dl Creatinine 0.39 L (0.6-1.2) mg/dl Glucose 104 H (70-99) mg/dl Calcium 7.9 L (8.5-10.1) mg/dl Magnesium (1.8-2.4) mg/dl AST (15-37) U/L Lactate Dehydrogenase 794 H (84-246) U/L Total Protein (6.4-8.2) gm/dl Albumin (3.4-5.0) gm/dl Albumin/Globulin Ratio (0.9-2) Diagnostic Findings XR chest 1V portable HISTORY: post thoracentesis COMPARISON: Chest 11/09/2018. FINDINGS: Interval decrease in size in the small right pleural effusion status post thoracentesis. No pneumothorax. Surgical clips within the right axilla. The heart is mildly enlarged. Small left pleural effusion persists. There is mild central pulmonary vascular congestion, unchanged. Left jugular Port-A-Cath terminates at the SVC. IMPRESSION: Interval decrease in size in the small right pleural effusion status post thoracentesis. No pneumothorax. Medications Administered Current Inpatient Medications Acetaminophen (Tylenol) 650 mg PO Q4H PRN PRN Reason: pain/fever Stop: 12/09/18 21:57 Benzonatate (Tessalon Perle) 100 mg PO TID [facility] Stop: 12/10/18 10:59 Last Admin: 11/10/18 12:32 Dose: 100 mg Documented by: Enoxaparin Sodium (Lovenox) 40 mg SQ Q24H [facility] Stop: 12/09/18 22:59 Last Admin: 11/09/18 22:52 Dose: Not Given Documented by: Fentanyl (Duragesic) 12 mcg TD Q3D [facility] Stop: 11/25/18 08:59 Gabapentin (Neurontin) 100 mg PO HS [facility] Stop: 12/09/18 21:57 Last Admin: 11/09/18 22:48 Dose: 100 mg Documented by: Heparin Sodium (Porcine) (Heparin Sod 100 Unit/Ml Flush) 5 ml FLUSH PRN PRN PRN Reason: Flush Stop: 12/10/18 02:29 Last Admin: 11/10/18 05:48 Dose: 5 ml Documented by: Miscellaneous (Fentanyl Patch Check Placement) 1 ea N/A QS [facility] Stop: 12/10/18 00:00 Last Admin: 11/10/18 16:40 Dose: 1 ea Documented by: Miscellaneous (Fentanyl Patch Remove & Waste) 1 ea N/A Q3D [facility] Stop: 12/11/18 08:58 Multivitamins/Minerals (Caltrate Plus) 1 tab PO BID [facility] Stop: 12/09/18 22:29 Last Admin: 11/10/18 09:48 Dose: Not Given Documented by: Ondansetron HCl (Zofran) 4 mg IV Q6H PRN PRN Reason: Nausea Stop: 12/09/18 21:57 Last Admin: 11/10/18 09:48 Dose: 4 mg Documented by: Polyethylene Glycol (Miralax Powder Packet) 17 gm PO DAILY PRN PRN Reason: Constipation Stop: 12/09/18 21:57 Potassium Phosphate (Phospha 250 Neutral 155-852-130 Mg) 1 tab PO QID [facility] Stop: 12/09/18 21:57 Last Admin: 11/10/18 12:32 Dose: 1 tab Documented by: Sodium Chloride ([place] Nasal) 0 sprays NA PRN PRN PRN Reason: Dry Nares Stop: 12/10/18 09:44 PG Care Time/CCT Total # of Minutes Spent Total Time Spent with Patient: Total time spent is greater than 50% in coordination of care (as documented) at patient's floor/unit and/or counseling patient: Resident Activity Tracking Resident Involvement: Resident Care Provided Care Provided: Adult Hospital Medicine
[2018-11-10] MEDS: GABAPENTIN 100 MG CAP PO SCH (20:29)
[2018-11-10] MEDS ORDERED: INFLUENZA ADMINISTRATION CHARGE ONE (20:30)
[2018-11-10] MEDS ORDERED: INFLUENZA VIRUS QUAD VACCINE 0.5 ML SYR IM ONE (20:30)
[2018-11-11] MEDS: ENOXAPARIN INJ 40 MG/0.4 ML SYR SQ SCH (00:18)
[2018-11-11] MEDS: CHECK FENTANYL PATCH PLACEMENT SCH ×2 (00:20→08:11)
[2018-11-11] MEDS: HEPARIN 100 UNIT/ML 5ML FLUSH FLUSH PRN ×2 (05:37→10:36)
[2018-11-11 06:29] LABS: Hematocrit (blood only) 26.6 % (37-47); Hemoglobin 8.4 g/dL (12.0-16.0); Mean Corpuscular Hemoglobin 28.8 pg (25-34); Mean Corpuscular Hgb Conc 31.6 g/dL (32-36); Mean Corpuscular Volume 91.1 fL (80-100); Mean Platelet Volume 9.4 fL (7.4-10.4); Platelet Count 147 K/uL (130-400); RDW Coefficient of Variation 18.4 % (11.5-14.5); RDW Standard Deviation 60.9 fL (36.4-46.3); Red Blood Count 2.92 M/uL (4.2-5.4); White Blood Count 6.49 K/uL (4.8-10.8)
[2018-11-11 07:05] LABS: BUN Creatinine Ratio 18.8 (10-20); Calcium 7.8 mg/dl (8.5-10.1); Creatinine Clr Calc Pharmacy 160.5 ml/min; Est GFR (African American) 138.5; Est GFR (Non-African American) 119.5; Potassium 3.5 mmol/L (3.5-5.1)
[2018-11-11] MEDS ORDERED: POTASSIUM CHLORIDE 20 MEQ TABCR PO STA (07:36)
[2018-11-11 07:40] LABS: ALC (manual) 0.45 K/uL (1.2-3.4); ANC (manual) 5.81 K/uL (1.4-6.5); Dohle Bodies 1+; Eosinophils # (manual) 0.17 K/uL (0-0.5); Eosinophils % (manual) 2.6 %; Lymphocytes # (manual) 0.45 K/uL (1.2-3.4); Monocytes # (manual) 0.06 K/uL (0.11-0.59); Monocytes % (manual) 0.9 %; Neutrophils # (manual) 5.81 K/uL (1.4-6.5); Neutrophils % (manual) 89.5 %; Poikilocytosis Present
[2018-11-11] MEDS: BENZONATATE 100 MG CAPSULE PO SCH ×2 (08:12→13:44)
[2018-11-11] MEDS: CALCIUM 600MG + VIT D 400 IU TAB PO SCH (08:12)
--- NOTE | 2018-11-11 08:46 | XRay Report ---
SINGLE VIEW CHEST CLINICAL HISTORY: Dyspnea. Pleural effusion. FINDINGS: An AP, portable, upright chest radiograph is compared to study dated 11/10/2018 and correlat ed with chest CT dated 05/03/2017. The examination is degraded by portable technique and patient rotat ion. A left internal jugular central venous infusion port is in place. The heart appears enlarged. Th ere is pulmonary vascular congestion. There are layering pleural effusions with bibasilar consolidati on, left slightly larger than right. No pneumothorax is seen. The skeletal structures are osteopenic. The bony thorax is grossly intact. Surgical clips are noted in the right axilla and the left breast. IMPRESSION: 1. Cardiomegaly with mild pulmonary vascular congestion. 2. There are layering pleural effusions with bibasilar consolidation. This is similar in appearance t o yesterday. Electronically signed by: Dada Johnson M.D. 11/11/2018 8:45 AM
[2018-11-11] MEDS ORDERED: fentaNYL 12 MCG/HR TDSY TD SCH (09:00)
[2018-11-11] MEDS ORDERED: MAGNESIUM SULFATE / D5W 1 GM/100 ML BAG IV ONE (09:00)
[2018-11-11] MEDS: POT PHOSPHATE MONOBASIC W/ SOD TAB PO SCH ×2 (09:33→12:32)
--- NOTE | 2018-11-11 10:19 | Progress Note ---
DATE: 11/11/2018 The patient was seen today. She feels much better. She is off of all oxygen. She sounds better on auscultation. I reviewed the studies on the pleural fluid yesterday and the LDH is quite high. This is almost certainly a malignant effusion. We will await the final cytology. I discussed this with the primary care team. From my perspective, I think that the patient can go home when the primary care service is ready. She has a niece who helps her at home. Her x-ray shows some reaccumulation of fluid. She actually has some on the left side also. She is definitely better than before we tapped her. I explained that this may reaccumulate. I will see her back in the office in a week or so with a chest x-ray and should this recur as I suspect it will, we will discuss an indwelling pleural catheter.
[2018-11-11 11:36] VITALS: BP 116/77; PULSE 109; TEMP 98.4; O2SAT 91
--- NOTE | 2018-11-11 12:45 | Discharge Summary ---
Date of Service November 11, 2018 Admission HPI Per Admitting Provider Patient is a very pleasant 58 year old female PMHx Metastatic Breast Cx BRCA1(+) triple negative, s/p b/l mastectomy, s/p total hysterectomy presenting initially with chief complaint of shortness of breath. Patient states that she was seen in at her PCP's office the day prior with complaints of increasing SOB. An x-ray there demonstrated mild pulmonary edema and the patient was instructed to go to the ED if her symptoms worsened. She states that she was called around 16:00 today by her PCP's office and instructed to go to the ED since her SOB had not been improving. While in the ED an X-ray showed a moderate R and small L pleural effusions with bibasilar densities that favored atelectasis from pleural effusions. Currently patient is seated comfortably in bed and notes that while she has slight SOB, she is able to move around and hold a conversation without becoming too winded. She denies any current pain. Also of note, patient states that she had her last treatment of Radiation on Monday, Chemotherapy on Monday, and Neulasta injection on Monday. Admission Exam Per Admitting Provider Constitutional: well developed, well nourished and cooperative Eyes: PERRL, conjunctivae normal, anicteric sclerae normal visual smith by confrontation ENMT: Ears: no hearing impairment Mouth: no oropharynx abnormality and no oral mucosal abnormality Neck: + anterior neck swelling and + submandibular swelling; neck nontender Significant swelling and hardened cervical and submandibular lymph nodes L > R. Respiratory: normal respiratory effort and + cough; does not use accessory muscles Auscultation: + diminished lung sounds (Diminished in mid-low R lung field and low L lung field) Cardiovascular: Rate/Rhythm: + tachycardic (126bpm ) Heart Sounds: normal S1 and normal S2; no murmur Vessels: normal peripheral pulses, posterior tibial pulses present, dorsalis pedis pulses present, brachial pulses present and radia l pulses present Extremities: + edema (+1 to the ankle); no calf tenderness Gastrointestinal (Abdomen): normal bowel sounds, soft, nontender, no hepatosplenomegaly Psychiatric: A+Ox3, euthymic affect Principal Diagnosis Dyspnea: Bilateral pleural effusion Discharge Exam General: In NAD Neuro: A&O x 4 Pulm: RML/RLL mild crackles appreciated, diminished bibasilar breath sounds CV: Mildly tachycardic normal rhythm, no m/r/g Abdomen:+BS, no TTP in all quadrants, non-distended LE: no LE edema, no calf TTP Skin: neck and upper shoulder skin metastasis: indurated hardened skin/soft tissue with mild erythema and skin darkening worse over L lateral neck Discharge Data Allergies Allergy/AdvReac Type Severity Reaction Status Date / Time Sulfa (Sulfonamide Allergy Intermediate HIVES Verified 11/09/18 19:57 Antibiotics) tramadol AdvReac Intermediate Nausea/Vomi Verified 11/09/18 19:58 ting Consultations 11/09/18 19:38 ED Decision to Admit Stat 11/09/18 21:58 Consult Thoracic Surgery Routine Procedures Performed Ultrasound-guided thoracentesis Ordered Studies SINGLE VIEW CHEST CLINICAL HISTORY: Dyspnea. Pleural effusion. FINDINGS: An AP, portable, upright chest radiograph is compared to study dated 11/10/2018 and correlated with chest CT dated 05/03/2017. The examination is degraded by portable technique and patient rotation. A left internal jugular central venous infusion port is in place. The heart appears enlarged. There is pulmonary vascular congestion. There are layering pleural effusions with bibasilar consolidation, left slightly larger than right. No pneumothorax is seen. The skeletal structures are osteopenic. The bony thorax is grossly intact. Surgical clips are noted in the right axilla and the left breast. IMPRESSION: 1. Cardiomegaly with mild pulmonary vascular congestion. 2. There are layering pleural effusions with bibasilar consolidation. This is similar in appearance to yesterday. XR chest 1V portable HISTORY: post thoracentesis COMPARISON: Chest 11/09/2018. FINDINGS: Interval decrease in size in the small right pleural effusion status post thoracentesis. No pneumothorax. Surgical clips within the right axilla. The heart is mildly enlarged. Small left pleural effusion persists. There is mild central pulmonary vascular congestion, unchanged. Left jugular Port-A-Cath terminates at the SVC. IMPRESSION: Interval decrease in size in the small right pleural effusion status post thoracentesis. No pneumothorax. Hospital Course (1) Pleural effusion: 58 year old female PMHx Metastatic Breast Cx BRCA1(+) triple negative, s/p b/l mastectomy, s/p total hysterectomy presented with shortness of breath especially on exertion. Dyspnea and cough likely secondary to pleural effusion in the setting of breast cancer Found to have Moderate pleural effusion on R and small on L s/p thoracentesis today, 1500cc removed. Likely malignant in nature: Light's criteria - exudative based on analysis. Cultures pending. WBC of 8.9 (baseline leukopenic 1.95 on 11/10/18) with predominately neutrophils. Pain control pt was on: Fentanyl Patch and Gabapentin for neuropathy in hands and feet. Received tessalon perles to help with cough - discharged on it. Remained on RA. -Will need to follow up with Thoracic Surgery for management of pleural effusion -Follow up on cultures Metastatic Breast Cancer -S/P B/L Mastectomy and total Hysterectomy -BRCA1 (+) and Triple Negative metastatic cancer -On palliative radiation and chemotherapy Hypokalemia-improved Hypomagnesemia- improved DVT: Enoxaparin Code: Full (2) Metastatic breast cancer: (3) Hypokalemia: (4) Hypomagnesemia: Total Time Total Time Spent Total Time Spent (In Minutes): 30 mins Discharge Plan Discharge Items Patient Disposition: Home - Self-Care Reason For Visit: R PEURAL EFFUSION Discharge Diagnosis: dyspnea secondary to bilateral pleural effusion Condition on Discharge: Good Activity: Resume your previous activity Non-emergency contact: Primary Care Provider Call non-emergency contact if: your symptoms worsen and you have a fever Follow-up/Referrals: Claire Snowden CRNP [Primary Care Provider] - Diet: Regular Addtl Attending Provider Instructions: Take tessalon perles 1 pill three times a day as needed to help with your cough Please continue taking your home medications as prescribed Follow up with your primary care doctor in 1-2 days to ensure you are continuing to improve Follow up with Dr. Leonard (thoracic surgery) for fluid around your lungs, reach out to his office if you do not hear back from them in the next 2-3 days regarding an appointment Pending Studies at Discharge: Yes Studies:: Pleural fluid Cultures Stand-Alone Forms: My [facility] [employer] Medications and DC Order Prescriptions: New benzonatate [Tessalon Perles] 100 mg Capsule 100 mg PO TID 10 Days Qty: 30 RF: 0 Continued ondansetron HCl [Zofran] 8 mg tablet 8 mg PO TID PRN (Reason: Nausea) RF: 0 acetaminophen [Tylenol] 325 mg Tablet 325 - 650 mg PO Q6H PRN (Reason: Pain) RF: 0 potassium chloride 10 mEq Tablet Extended Release 10 meq PO DAILY RF: 0 fentanyl 12 mcg/hr Patch 72 Hour 12 mcg transdermal Q3D Qty: 5 RF: 0 Phospha 250 Neutral 250 mg Tablet 1 tab PO QID Qty: 120 RF: 0 gabapentin 100 mg Capsule 100 mg PO HS Qty: 30 RF: 0 Caltrate 600-D Plus Minerals 600 mg calcium- 800 unit-50 mg Tablet 1 tab PO BID Qty: 60 RF: 0 Discharge Orders: Discharge Order (Routine); Ordered 11/11/18 Ordered By: Quincy Costa Admission Data Admit Date/Time: 11/09/18 20:55 Attending Provider: Zoë Trevizo Admit Provider: Giselle Zhang Primary Care Provider: Claire Snowden Other Providers: Giselle Zhang ; Alexander Leonard Other Interventions: Discharge Summary Assessment (RN) Last Done: 11/11/18 12:53 DC Date/Time DO NOT enter until pt leaves facility: 11/11/18 14:29 Supervising Physician Co-Signing Physician Notes Resident Physician Supervision Note: I independently interviewed and examined the patient and verified the muñoz history and physical, reviewed labs and image studies, discussed the case with the resident Dr. Costa and agree with the findings and care plan. Resident Activity Tracking Resident Involvement: Resident Care Provided Care Provided: Adult Hospital Medicine
== END 2018-11-11 14:29 | disposition home or self-care (01) ==
LOC: 2N 17:16 → ED 17:16 → SUATTDRO 20:55 → 2N 21:29

== ENCOUNTER 2018-12-10 16:52 | Inpatient (IN) ==
[2018-12-10] MEDS ORDERED: SODIUM CHLORIDE 0.9% 1000ML 1,000 ML IV SCH (17:15)
[2018-12-10] MEDS ORDERED: HEPARIN 100 UNIT/ML 5ML FLUSH FLUSH PRN (18:06)
--- NOTE | 2018-12-10 18:08 | XRay Report ---
XR chest 1V portable CLINICAL HISTORY: SOB COMPARISON STUDY: 12/10/2018 FINDINGS: There is a left-sided A-Port catheter. There is a right basilar pleural catheter. Surgical clips project over both axillary regions. There is a persistent large left pleural effusion. There is a loculated right pleural effusion. There are persistent right mid and lower lung zone airspace opac ities. There is left lower lobe atelectasis/consolidation. No pneumothorax is currently visualized. IMPRESSION: 1. No significant change from the preceding study. Persistent cardiomegaly and bilateral pleural effu sions left greater than right. Electronically signed by: Shilo Kenney M.D. 12/10/2018 6:07 PM
[2018-12-10 18:26] LABS: Hematocrit (blood only) 30.8 % (37-47); Hemoglobin 9.4 g/dL (12.0-16.0); Mean Corpuscular Hemoglobin 26.3 pg (25-34); Mean Corpuscular Hgb Conc 30.5 g/dL (32-36); Mean Corpuscular Volume 86.3 fL (80-100); Mean Platelet Volume 9.4 fL (7.4-10.4); Platelet Count 290 K/uL (130-400); RDW Coefficient of Variation 19.5 % (11.5-14.5); RDW Standard Deviation 61.7 fL (36.4-46.3); Red Blood Count 3.57 M/uL (4.2-5.4); White Blood Count 18.74 K/uL (4.8-10.8)
[2018-12-10 18:41] LABS: Appearance Urine Clear (Clear); Bacteria Urine Automated 4+ (Negative); Bilirubin Urine Negative (Negative); Blood Urine Negative (Negative); Color Urine Yellow; Epithelial Cell Urine Auto >30 /lpf (0-5); Glucose Urine UA Negative (Negative); Ketones Urine Negative (Negative); Leukocyte Esterase Urine Negative (Negative); Nitrite Urine Positive (Negative); Protein Urine Negative (Negative); RBC Urine Automated 0-4 /hpf (0-4); Specific Gravity Urine 1.018 (1.000-1.030); Urobilinogen Urine Negative (Negative); pH Urine 5.5 (4.5-7.5)
[2018-12-10 18:45] LABS: Alanine Aminotransferase 10 U/L (12-78); Albumin Level 2.2 gm/dl (3.4-5.0); Aspartate Aminotransferase 39 U/L (15-37); BUN Creatinine Ratio 19.7 (10-20); Blood Urea Nitrogen 10 mg/dl (7-18); Calcium 7.9 mg/dl (8.5-10.1); Carbon Dioxide 23 mmol/L (21-32); Chloride 102 mmol/L (98-107); Est GFR (African American) 123.8; Est GFR (Non-African American) 106.8; Glucose 124 mg/dl (70-99); Lipase 43 U/L (73-393); Potassium 3.7 mmol/L (3.5-5.1); Sodium 135 mmol/L (136-145)
[2018-12-10 18:50] LABS: Albumin Globulin Ratio 0.6 (0.9-2); Alkaline Phosphatase 214 U/L (45-117); Bilirubin,Total 0.5 mg/dl (0.2-1); Globulin 3.6 gm/dl (2.5-4.0); Total Protein 5.8 gm/dl (6.4-8.2); Troponin I < 0.015 ng/ml (0-0.045)
[2018-12-10 18:52] LABS: Basophils # (auto) 0.03 K/uL (0-0.2); Basophils % (auto) 0.2 %; Dohle Bodies 1+; Eosinophils # (auto) 0.13 K/uL (0-0.5); Eosinophils % (auto) 0.7 %; Hypochromasia Present; Immature Granulocytes # (auto) 1.06 K/uL (0.00-0.02); Immature Granulocytes % (auto) 5.7 %; Lymphocytes # (auto) 0.61 K/uL (1.2-3.4); Lymphocytes % (auto) 3.3 %; Monocytes # (auto) 0.47 K/uL (0.11-0.59); Monocytes % (auto) 2.5 %; Neutrophils # (auto) 16.44 K/uL (1.4-6.5); Neutrophils % (auto) 87.6 %; Ovalocytes 1+; Schistocytes 1+; Toxic Granulation 1+
[2018-12-10] MEDS ORDERED: cefTRIAXone SODIUM 1,000 MG/50 ML BAG IV STA (20:24)
[2018-12-10] MEDS ORDERED: POLYETHYLENE (MIRALAX) 17 GM PACK PO PRN (20:39)
[2018-12-10] MEDS ORDERED: ONDANSETRON INJ 2 MG/ML 2 ML VIAL IV PRN (20:39)
[2018-12-10] MEDS ORDERED: VANCOMYCIN HCL 1,250 MG in SODIUM CHLORIDE 0.9% 500 ML IV ONE (23:17)
[2018-12-10] MEDS ORDERED: PIPERACILL/TAZOBAC CONSULT ACTIVE PRN (23:17)
[2018-12-10] MEDS ORDERED: VANCOMYCIN CONSULT ACTIVE PRN (23:17)
--- NOTE | 2018-12-10 23:54 | History & Physical Report ---
Date of Service December 10, 2018 Assessment & Plan (1) Shortness of breath: 58-year-old female with past medical history of metastatic breast cancer BRCA positive, triple negative, S/P bilateral mastectomy, S/P total hysterectomy presents from her PCP with nausea and shortness of breath. Bilateral pleural effusion, significant on the left Patient is tachypneic, but satting well 2 L nasal cannula Patient has a Pleurx on the right side Consult thoracic surgery, recurrent left-sided pleural effusion, consider Pleurx on the left side Sepsis per sirs criteria, immunocompromised patient Blood cultures, lactate obtained Received 1 L bolus in the ED, will continue maintenance IV fluid 110 cc/h, conservative considering pleural effusion Empirically treating with antibiotics; tachycardia, tachypnea, leukocytosis Possible source urinary versus pulmonaryUTI was positive for infection and the patient's been symptomatic Treating with broad-spectrum vancomycin/Zosyn Dehydration poor p.o. intake due to intractable nausea Continue maintenance fluids, adding albumin x2 Continue Zofran Breast cancer Continue fentanyl patch, gabapentin DVT prophylaxisSCDs, patient will likely need thoracocentesis, deferring chemical prophylaxis CODE STATUSfull code Dietn.p.o. (2) Dehydration: (3) Pleural effusion on left: (4) History of breast cancer: (5) UTI (urinary tract infection): (6) Pleural effusion: (7) Breast cancer: (8) Tachycardia: (9) Edema: (10) Leukocytosis: History of Present Illness Primary Care Provider: DORINA Spangler 58-year-old female with past medical history of metastatic breast cancer BRCA positive, triple negative, S/P bilateral mastectomy, S/P total hysterectomy presents from her PCP with nausea and shortness of breath. She said that the nausea has been present since after her chemotherapy treatment last Monday. She is on a every 28-day regimen. She is also started to have shortness of breath beginning Monday. Her breast cancer has metastasized to her mediastinum, chest wall and neck. She has received radiation therapy to her bilateral neck. Over the course of her treatment, the patient is developed bilateral pleural effusions. During an admission at the end of October, the patient received a right pleural X catheter. She denies any fevers, chills, night sweats. Patient reports decreased p.o. intake since developing nausea post chemotherapy treatment. Review of systems Constitutional; denies fevers, chills, night sweats HEENT; no runny nose, no sore throat, no sinus pressure CV; describes anterior chest pain ongoing with mediastinal metastatic disease, denies palpitations Respiratory; shortness of breath as described above, denies hemoptysis Abdomen; describes right-sided abdominal pain, chronic, nausea, denies vomiting diarrhea Allergies Allergy/AdvReac Type Severity Reaction Status Date / Time Sulfa (Sulfonamide Allergy Intermediate HIVES Verified 12/10/18 16:05 Antibiotics) tramadol AdvReac Intermediate Nausea/Vomi Verified 12/10/18 16:05 ting Home Medications Home Medications Medication Instructions Recorded Confirmed Type ondansetron HCl 8 mg tablet 8 mg PO TID PRN 04/20/18 12/10/18 History acetaminophen [Tylenol] 325 - 650 mg PO Q6H PRN 05/31/18 12/10/18 History potassium chloride 10 meq PO DAILY 05/31/18 12/10/18 History Caltrate 600-D Plus Minerals 1 tab PO BID #60 tab 10/29/18 12/10/18 Rx Phospha 250 Neutral 1 tab PO QID #120 tab 10/29/18 12/10/18 Rx fentanyl 12 mcg TRANSDERMAL Q3D #5 ea 10/29/18 12/10/18 Rx gabapentin 100 mg PO HS #30 cap 10/29/18 12/10/18 Rx Past Med/Surg History Medical History Pleural effusion (Acute) Weakness (Acute) Breast cancer (Acute) Tachycardia (Acute) Edema Hypomagnesemia Weakness Hypokalemia Hypotension DVT prophylaxis Anemia Anemia associated with chemotherapy (~11/2012) BRCA1 genetic carrier 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 Breast cancer (~08/2012) Cancer of midline of right female breast (10/01/12) "Right breast mass Status post biopsy of the right breast and axilla revealing infiltrating ductal carcinoma 10/01/2012 Estrogen receptor negative, progesterone receptor negative, HER-2/violeta negative Status post neoadjuvant chemotherapy Adriamycin and Cytoxan followed by Taxol for 4 cycles Status post right breast skin sparing mastectomy and right axillary lymph node dissection, left breast skin sparing mastectomy and lymph node injection and sentinel lymph node biopsy 04/10/2014 Right breast [id number] left breast no pathologic findings Status post reconstruction with bilateral silicone implants Status post completion of radiation therapy 07/10/2013 received 6120 cGy BRCA1 testing positive Finding of a right neck mass March 2016 Status post FNA revealing metastatic adenocarcinoma of breast origin PET/CT revealing extensive metastatic disease. 6 cycles of chemotherapy with Abraxane PET/CT revealing improvement August [address] November 2016 showing progression Currently undergoing chemotherapy with gemcitabine and carboplatin" On 02/24/15 13:29 Linda Roth wrote "Right breast mass Status post biopsy of the right breast and axilla revealing infiltrating ductal carcinoma 10/01/2012 Estrogen receptor negative, progesterone receptor negative, HER-2/violeta negative Status post neoadjuvant chemotherapy Adriamycin and Cytoxan followed by Taxol for 4 cycles Status post right breast skin sparing mastectomy and right axillary lymph node dissection, left breast skin sparing mastectomy and lymph node injection and sentinel lymph node biopsy 04/10/2014 Right breast [id number] left breast no pathologic findings Status post reconstruction with bilateral silicone implants Status post completion of radiation therapy 07/10/2013 received 6120 cGy BRCA1 testing positive" Metastasis to lymph nodes Metastatic breast cancer Breast CA (Acute) Constipation (Acute) Migraine (Acute) Surgical History H/O bilateral mastectomy (Acute) History of hysterectomy (Acute) S/P tonsillectomy Family History Brother Myocardial infarction Hodgkins disease Uncle Myocardial infarction Grandmother (Paternal) Heart disease Sister Colon cancer Other Cancer Diabetes Hypertension Social History Preferred Language: Mongolian Communication Ability: Effective Visual Impairment: No Limitations Hearing Ability: Normal Event Av Operator Required: No Beliefs That Will Affect Care: None marital status: Single Current Living Situation: Family current occupational status: employed current occupation: underwriting assistant at [employer] Feels Safe at Home: Yes Safety Concerns: Feels Safe At This Time Smoking Status: Never smoker Second Hand Exposure: No ; Hx Alcohol Use: No Hx Substance Use: No Dental Care, Regularly: Yes Physical Activity Frequency: Daily Review of Systems Review of Systems: All systems reviewed & are unremarkable except as noted in HPI & below Physical Exam Constitutional: WD/WN, vitals as above Eyes: PERRL, conjunctivae normal, anicteric sclerae ENMT: external ear and nose normal, oropharynx normal Neck: Bilateral scarring and hyperpigmentation, status post radiation therapy Respiratory: + labored breathing, + uses accessory muscles and able to speak in complete sentences; no respiratory distress and no cough Auscultation: lungs clear to auscultation bilaterally and + diminished lung sounds (Bilateral bases) Cardiovascular: RRR, no murmur, no edema Gastrointestinal (Abdomen): Inspection/Auscultation: normal bowel sounds; abdomen not distended Percussion/Palpation: + abdomen tender (Right upper quadrant); no guarding and abdomen not rigid Musculoskeletal: no cyanosis or clubbing, extremities motor strength 5/5 Skin: no rashes, warm and dry Neurologic: PERRL, EOMI, accommodation nl, no face palsy, no dysarthria Psychiatric: A+Ox3, euthymic affect Results & Data Vital Signs (Past 12 Hours) Vital Signs Temp Pulse Resp BP Pulse Ox 12/10/18 22:00 128 H 34 H 95 12/10/18 21:30 129 H 19 94 12/10/18 21:00 126 H 30 H 109/64 94 12/10/18 20:30 124 H 32 H 108/71 92 12/10/18 20:00 124 H 31 H 97/70 L 93 12/10/18 19:30 126 H 25 H 112/74 94 12/10/18 19:00 121 H 29 H 106/70 96 12/10/18 18:31 127 H 24 103/87 97 12/10/18 18:30 127 H 24 96 12/10/18 18:00 132 H 15 102/72 95 12/10/18 17:51 126 H 22 95 12/10/18 17:32 131 H 34 H 106/72 91 12/10/18 16:55 36.3 C L 133 H 20 94/70 L 92 Code Status & VTE Plan Code Status Full code Supervising Physician Co-Signing Physician Notes Attending addendum: I have physically seen this patient, have supervised the medical residents activities, and agree with the H&P unless as otherwise noted. Assessment and Plan: Bilateral pleural effusions, left greater than right- Pleurx catheter present on right. We will consult Dr. Leonard, thoracic surgery, for consideration of Pleurx on left side. Continue telemetry nasal cannula. Albumin 25 g IV x2. Vancomycin IV/Zosyn IV empiric treatment. Follow serial imaging studies. Remaining orders and notations as noted. PG Care Time/CCT Total # of Minutes Spent Total Time Spent with Patient: Total time spent is greater than 50% in coordination of care (as documented) at patient's floor/unit and/or counseling patient: Resident Activity Tracking Resident Involvement: Resident Care Provided Care Provided: Adult Hospital Medicine (1) UTI (urinary tract infection) Hematuria presence: without hematuria Urinary tract infection type: site unspecified Qualified Code(s): N39.0 - Urinary tract infection, site not specified (2) Breast cancer Breast location: unspecified site of breast Estrogen receptor status: unspecified Laterality: unspecified laterality Patient sex: female Qualified Code(s): C50.919 - Malignant neoplasm of unspecified site of unspecified female breast
[2018-12-11] MEDS ORDERED: VANCOMYCIN HCL 1,500 MG in SODIUM CHLORIDE 0.9% 500 ML IV SCH
[2018-12-11] MEDS ORDERED: PIPERACILLIN/TAZOBACTAM 4.5 GM in DEXTROSE 5% 100 ML IV SCH
[2018-12-11] MEDS ORDERED: fentaNYL 12 MCG/HR TDSY TD SCH
[2018-12-11] MEDS: GABAPENTIN 100 MG CAP PO SCH ×2 (00:12→20:22)
[2018-12-11] MEDS: ONDANSETRON INJ 2 MG/ML 2 ML VIAL IV PRN (00:22)
--- NOTE | 2018-12-11 00:33 | Emergency Department Note ---
Entered by Corin Howell acting as a scribe for ED Provider Note CHIEF COMPLAINT: Dehydration HISTORY OF PRESENT ILLNESS: The patient is a 58 year old female with past medical history of breast cancer, pleural effusion, weakness, hypokalemia, hypotension, anemia, DVT prophylaxis, who presents to the Emergency Room with complaints of constant dehydration that started a few days ago. The patient reports she feels weak and is currently getting chemo for metastatic breast cancer. She states her last treatment was on Monday and did not do radiation. The patient additionally notes she has been feeling short of breath for the last few days and is very tired. She states she has loss of appetite and intermittent nausea. The patient reports she saw her PCP and told her she was worried about her and was referred to the ED. She notes she has a port in place as well as a catheter. The patient additionally states she has numbness in her hands but thinks its from the chemotherapy. She reports she has urination frequency. The patient states she has history of blood transfusion and her last one was on October 28. Pt denies LOC, headache, fevers, chills, diaphoresis, visual changes, neck pain, chest pain, vomiting, abdominal pain, back pain, melena, hematochezia, lymphadenopathy, rash, or other complaints. REVIEW OF SYSTEMS: See HPI for pertinent positives and negatives. A total of ten systems were reviewed and were otherwise negative. PMHx/PSHx: Breast cancer Pleural effusion Weakness Hypokalemia Hypotension Anemia DVT prophylaxis SOCIAL HISTORY: Patient lives at home. PHYSICAL EXAM: GENERAL: Awake, alert, pale-appearing, in no distress HENT: Normocephalic, atraumatic. Dry mucous membranes EYES: PERRL. Pale conjunctiva. Sclera non-icteric. NECK: Inspection normal. Non-tender. Supple. No nuchal rigidity. FROM. No masses. RESPIRATORY: Clear to auscultation. No wheezes. No rales. Normal respiratory effort. CARDIAC: Tachycardic rate. Normal rhythm. No murmurs. No rubs. Extremities warm and well perfused. Pulses equal. No JVD. GI: Soft, non-distended. No tenderness to palpation. No rebound or guarding. No masses. RECTAL: Deferred. MUSCULOSKELETAL: Atraumatic. Chest examination reveals port in left upper chest. The back is symmetrical on inspection without obvious abnormality. There is no CVA tenderness to palpation. No joint edema. LOWER EXTREMITIES: Calves are equal size bilaterally and non-tender. No edema. No discoloration. NEURO: Normal sensorium. No sensory or motor deficits noted. SKIN: No rash or jaundice noted. EMERGENCY DEPARTMENT COURSE: 1715: Past medical records reviewed. The patient was evaluated in room A10, and a complete history and physical examination were performed. 1816: I checked on the patient. 1935: Upon reevaluation, the patient is resting comfortably. I discussed laboratory and radiographic results with her and the family. They verbalized agreement of the treatment plan. The patient will be evaluated for further management and care. 2002: I discussed the patients case with Dr. Felder, [facility] Hospitalist. He will evaluate the patient for further management. MEDICAL DECISION MAKING: A10 Prior records/ancillary studies reviewed. Nursing notes reviewed and agree them. The patient's history was concerning for weakness. Differential diagnosis: Etiologies such as metabolic, infection, hypo/hyperglycemia, electrolyte abnormalities, cardiac sources, intracerebral event, toxicologic, neurologic, as well as others were entertained. Physical examination: As above. ER treatment provided: IV Lock Saline hydration On reassessment the patient felt better. Diagnostics interpretation by me: ECG: Sinus tachycardia. The labs revealed CBC reveals a moderate leukocytosis of 18,000. The patient did receive Neulasta. Hemoglobin shows a mild anemia at 9.4. Troponin negative. LFTs and chemistries otherwise negative. Urinalysis is concerning for developing infection. Imaging studies: Chest x-ray shows a significant new left pleural effusion. Ultrasound imaging of the left upper extremity does not reveal any evidence of DVT. Limited secondary to structural abnormalities. Consultation: A consultation was placed with the hospitalist. The case was discussed and diagnostics were reviewed. The patient was evaluated in the ER for further treatment. IMPRESSION: Shortness of breath Dehydration Left pleural effusion UTI History of metastatic breast cancer PLAN: Admit The scribe's documentation has been prepared under my direction and personally reviewed by me in its entirety. I confirm that the note above accurately reflects all work, treatment, procedures, and medical decision making performed by me. 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 Breast cancer (~08/2012) Cancer of midline of right female breast (10/01/12) "Right breast mass Status post biopsy of the right breast and axilla revealing infiltrating ductal carcinoma 10/01/2012 Estrogen receptor negative, progesterone receptor negative, HER-2/violeta negative Status post neoadjuvant chemotherapy Adriamycin and Cytoxan followed by Taxol for 4 cycles Status post right breast skin sparing mastectomy and right axillary lymph node dissection, left breast skin sparing mastectomy and lymph node injection and sentinel lymph node biopsy 04/10/2014 Right breast [id number] left breast no pathologic findings Status post reconstruction with bilateral silicone implants Status post completion of radiation therapy 07/10/2013 received 6120 cGy BRCA1 testing positive Finding of a right neck mass March 2016 Status post FNA revealing metastatic adenocarcinoma of breast origin PET/CT revealing extensive metastatic disease. 6 cycles of chemotherapy with Abraxane PET/CT revealing improvement August [address] November 2016 showing progression Currently undergoing chemotherapy with gemcitabine and carboplatin" On 02/24/15 13:29 Linda Roth wrote "Right breast mass Status post biopsy of the right breast and axilla revealing infiltrating ductal carcinoma 10/01/2012 Estrogen receptor negative, progesterone receptor negative, HER-2/violeta negative Status post neoadjuvant chemotherapy Adriamycin and Cytoxan followed by Taxol for 4 cycles Status post right breast skin sparing mastectomy and right axillary lymph node dissection, left breast skin sparing mastectomy and lymph node injection and sentinel lymph node biopsy 04/10/2014 Right breast [id number] left breast no pathologic findings Status post reconstruction with bilateral silicone implants Status post completion of radiation therapy 07/10/2013 received 6120 cGy BRCA1 testing positive" Metastasis to lymph nodes Metastatic breast cancer Breast CA (Acute) Constipation (Acute) Migraine (Acute) Surgical History H/O bilateral mastectomy (Acute) History of hysterectomy (Acute) S/P tonsillectomy Family History Brother Myocardial infarction Hodgkins disease Uncle Myocardial infarction Grandmother (Paternal) Heart disease Sister Colon cancer Other Cancer Diabetes Hypertension Social History Preferred Language: Kiswahili Communication Ability: Effective Visual Impairment: No Limitations Hearing Ability: Normal End Frazer Required: No Beliefs That Will Affect Care: None marital status: Single Current Living Situation: Family current occupational status: employed current occupation: clinical nursing assistant at [employer] Feels Safe at Home: Yes Smoking Status: Never smoker Second Hand Exposure: No ; Hx Alcohol Use: Yes Alcohol Intake Frequency Comment: 1-2x/week prior, rarely s edna starting chemo Hx Substance Use: No Dental Care, Regularly: Yes Physical Activity Frequency: Daily Results & Data Vital Signs Vital Signs - 24 hr 12/10/18 16:55 12/10/18 17:32 12/10/18 17:51 Temperature 36.3 C L Temperature Source Oral Sepsis Recent Fever Within 48 Hours No Sepsis New/Unexplained Change in Mental Status No Sepsis Action Taken by Nursing No Action Required Pulse Rate 133 H 131 H 126 H Pulse Rate from SpO2 Sensor 132 H Respiratory Rate 20 34 H 22 Respiratory Effort / Characteristics Non-Labored Respiratory Depth Normal Blood Pressure 94/70 L 106/72 Blood Pressure Mean 78 83 Pulse Oximetry 92 91 95 Oxygen Delivery Method Room Air Nasal Cannula Nasal Cannula Oxygen Flow Rate 2 2 12/10/18 18:00 12/10/18 18:30 12/10/18 18:31 Temperature Temperature Source Sepsis Recent Fever Within 48 Hours Sepsis New/Unexplained Change in Mental Status Sepsis Action Taken by Nursing Pulse Rate 132 H 127 H 127 H Pulse Rate from SpO2 Sensor 132 H 128 H 130 H Respiratory Rate 15 24 24 Respiratory Effort / Characteristics Respiratory Depth Blood Pressure 102/72 103/87 Blood Pressure Mean 82 92 Pulse Oximetry 95 96 97 Oxygen Delivery Method Nasal Cannula Nasal Cannula Oxygen Flow Rate 2 2 2 12/10/18 19:00 12/10/18 19:30 12/10/18 20:00 Temperature Temperature Source Sepsis Recent Fever Within 48 Hours Sepsis New/Unexplained Change in Mental Status Sepsis Action Taken by Nursing Pulse Rate 121 H 126 H 124 H Pulse Rate from SpO2 Sensor 121 H 126 H 124 H Respiratory Rate 29 H 25 H 31 H Respiratory Effort / Characteristics Respiratory Depth Blood Pressure 106/70 112/74 97/70 L Blood Pressure Mean 82 86 79 Pulse Oximetry 96 94 93 Oxygen Delivery Method Nasal Cannula Nasal Cannula Nasal Cannula Oxygen Flow Rate 2 2 2 12/10/18 20:30 Temperature Temperature Source Sepsis Recent Fever Within 48 Hours Sepsis New/Unexplained Change in Mental Status Sepsis Action Taken by Nursing Pulse Rate 124 H Pulse Rate from SpO2 Sensor 124 H Respiratory Rate 32 H Respiratory Effort / Characteristics Respiratory Depth Blood Pressure 108/71 Blood Pressure Mean 83 Pulse Oximetry 92 Oxygen Delivery Method Oxygen Flow Rate Home Medications Current Medication List: was personally reviewed by me Laboratory Data Attestation: I reviewed the patient's lab results. Result diagrams: 12/10/18 17:23 12/10/18 17:59 Lab Results 12/10/18 12/10/18 12/10/18 Range/Units 17:23 17:59 17:59 WBC 18.74 H (4.8-10.8) K/uL RBC 3.57 L (4.2-5.4) M/uL Hgb 9.4 L (12.0-16.0) g/dL Hct 30.8 L (37-47) % MCV 86.3 (80-100) fL MCH 26.3 (25-34) pg MCHC 30.5 L (32-36) g/dL RDW Std Deviation 61.7 H (36.4-46.3) fL RDW Coeff of Dionicio 19.5 H (11.5-14.5) % Plt Count 290 (130-400) K/uL MPV 9.4 (7.4-10.4) fL Immature Gran % (Auto) 5.7 % Neut % (Auto) 87.6 % Lymph % (Auto) 3.3 % [place] % (Auto) 2.5 % Eos % (Auto) 0.7 % Baso % (Auto) 0.2 % Immature Gran # (Auto) 1.06 H (0.00-0.02) K/uL Neut # (Auto) 16.44 H (1.4-6.5) K/uL Lymph # (Auto) 0.61 L (1.2-3.4) K/uL [place] # (Auto) 0.47 (0.11-0.59) K/uL Eos # (Auto) 0.13 (0-0.5) K/uL Baso # (Auto) 0.03 (0-0.2) K/uL Toxic Granulation 1+ Dohle Bodies 1+ Hypochromasia Present Ovalocytes 1+ Schistocytes 1+ Sodium 135 L (136-145) mmol/L Potassium 3.7 (3.5-5.1) mmol/L Chloride 102 (98-107) mmol/L Carbon Dioxide 23 (21-32) mmol/L Anion Gap 11.0 (3-11) BUN 10 (7-18) mg/dl Creatinine 0.52 L (0.6-1.2) mg/dl Est Cr Clr Drug Dosing Not Reportable Est GFR ( Amer) 123.8 Est GFR (Non-Af Amer) 106.8 BUN/Creatinine Ratio 19.7 (10-20) Glucose 124 H (70-99) mg/dl Calcium 7.9 L (8.5-10.1) mg/dl Total Bilirubin 0.5 (0.2-1) mg/dl AST 39 H (15-37) U/L ALT 10 L (12-78) U/L Alkaline Phosphatase 214 H (45-117) U/L Troponin I < 0.015 (0-0.045) ng/ml Total Protein 5.8 L (6.4-8.2) gm/dl Albumin 2.2 L (3.4-5.0) gm/dl Globulin 3.6 (2.5-4.0) gm/dl Albumin/Globulin Ratio 0.6 L (0.9-2) Lipase 43 L (73-393) U/L Urine Color Urine Appearance (Clear) Urine pH (4.5-7.5) Ur Specific [place] (1.000-1.030) Urine Protein (Negative) Urine Glucose (UA) (Negative) Urine Ketones (Negative) Urine Blood (Negative) Urine Nitrite (Negative) Urine Bilirubin (Negative) Urine Urobilinogen (Negative) Ur Leukocyte Esterase (Negative) Urine WBC (Auto) (0-5) /hpf Urine RBC (Auto) (0-4) /hpf U Hyaline Cast (Auto) (0-5) /lpf U Epithel Cells (Auto) (0-5) /lpf Urine Bacteria (Auto) (Negative) Blood Type A Positive Antibody Screen NEGATIVE 12/10/18 Range/Units 18:00 WBC (4.8-10.8) K/uL RBC (4.2-5.4) M/uL Hgb (12.0-16.0) g/dL Hct (37-47) % MCV (80-100) fL MCH (25-34) pg MCHC (32-36) g/dL RDW Std Deviation (36.4-46.3) fL RDW Coeff of Dionicio (11.5-14.5) % Plt Count (130-400) K/uL MPV (7.4-10.4) fL Immature Gran % (Auto) % Neut % (Auto) % Lymph % (Auto) % [place] % (Auto) % Eos % (Auto) % Baso % (Auto) % Immature Gran # (Auto) (0.00-0.02) K/uL Neut # (Auto) (1.4-6.5) K/uL Lymph # (Auto) (1.2-3.4) K/uL Kitt[place] # (Auto) (0.11-0.59) K/uL Eos # (Auto) (0-0.5) K/uL Baso # (Auto) (0-0.2) K/uL Toxic Granulation Dohle Bodies Hypochromasia Ovalocytes Schistocytes Sodium (136-145) mmol/L Potassium (3.5-5.1) mmol/L Chloride (98-107) mmol/L Carbon Dioxide (21-32) mmol/L Anion Gap (3-11) BUN (7-18) mg/dl Creatinine (0.6-1.2) mg/dl Est Cr Clr Drug Dosing Est GFR ( Amer) Est GFR (Non-Af Amer) BUN/Creatinine Ratio (10-20) Glucose (70-99) mg/dl Calcium (8.5-10.1) mg/dl Total Bilirubin (0.2-1) mg/dl AST (15-37) U/L ALT (12-78) U/L Alkaline Phosphatase (45-117) U/L Troponin I (0-0.045) ng/ml Total Protein (6.4-8.2) gm/dl Albumin (3.4-5.0) gm/dl Globulin (2.5-4.0) gm/dl Albumin/Globulin Ratio (0.9-2) Lipase (73-393) U/L Urine Color Yellow Urine Appearance Clear (Clear) Urine pH 5.5 (4.5-7.5) Ur Specific [place] 1.018 (1.000-1.030) Urine Protein Negative (Negative) Urine Glucose (UA) Negative (Negative) Urine Ketones Negative (Negative) Urine Blood Negative (Negative) Urine Nitrite Positive A (Negative) Urine Bilirubin Negative (Negative) Urine Urobilinogen Negative (Negative) Ur Leukocyte Esterase Negative (Negative) Urine WBC (Auto) 10-30 H (0-5) /hpf Urine RBC (Auto) 0-4 (0-4) /hpf U Hyaline Cast (Auto) 1-5 (0-5) /lpf U Epithel Cells (Auto) >30 H (0-5) /lpf Urine Bacteria (Auto) 4+ H (Negative) Blood Type Antibody Screen Administered Medications Fentanyl (Duragesic) 12 mcg TD Q3D [facility] Stop: 12/25/18 00:00 Last Admin: 12/11/18 00:14 Dose: 12 mcg Documented by: [id number] Gabapentin (Neurontin) 100 mg PO HS [facility] Stop: 01/09/19 23:16 Last Admin: 12/11/18 00:12 Dose: 100 mg Documented by: [id number] Piperacillin Sod/Tazobactam (Sod 4.5 gm/ Dextrose) 120 mls @ 240 mls/hr IV TODAY@0000 [facility]; Protocol Stop: 12/11/18 00:29 Last Admin: 12/11/18 00:08 Dose: 240 mls/hr Documented by: [id number] Ondansetron HCl (Zofran) 4 mg IV Q4H PRN PRN Reason: Nausea Stop: 01/09/19 20:38 Last Admin: 12/11/18 00:22 Dose: 4 mg Documented by: [id number] Discontinued Medications Sodium Chloride (Nss 1000ml) 1,000 mls @ 999 mls/hr IV .Q1H1M [facility] Stop: 12/10/18 18:15 Last Infusion: 12/10/18 19:33 Dose: 0 mls/hr Documented by: [id number] Admin: 12/10/18 18:00 Dose: 999 mls/hr Documented by: [id number] Ceftriaxone Sodium (Rocephin) 1,000 mg in 50 mls @ 100 mls/hr IV NOW STA Stop: 12/10/18 20:53 Last Infusion: 12/10/18 22:12 Dose: 0 mls/hr Documented by: [id number] Admin: 12/10/18 20:46 Dose: 100 mls/hr Documented by: [id number] Imaging Data Radiologist's Impression: Radiology results as stated below per my review and the radiologist's interpretation: XR chest 1V portable CLINICAL HISTORY: SOB COMPARISON STUDY: 12/10/2018 FINDINGS: There is a left-sided A-Port catheter. There is a right basilar pleural catheter. Surgical clips project over both axillary regions. There is a persistent large left pleural effusion. There is a loculated right pleural effusion. There are persistent right mid and lower lung zone airspace opacities. There is left lower lobe atelectasis/consolidation. No pneumothorax is currently visualized. IMPRESSION: 1. No significant change from the preceding study. Persistent cardiomegaly and bilateral pleural effusions left greater than right. Electronically signed by: Shilo Kenney M.D. 12/10/2018 6:07 PM ECG Data Attestation: I personally reviewed and interpreted this ECG as follows: Indication: SOB/dyspnea Rate (beats per minute): 122 Rhythm: sinus tachycardia Findings: + other (Low voltage QRS, normal axis ); no PAC, no PVC, no ST depression and no ST elevation Blood Pressure Blood Pressure Findings: Normal blood pressure Blood Pressure Disposition: did not require urgent referral Discharge Plan Visit Data *Final* Discharge Date/Time: 12/10/18 22:25 Chief Complaint: Dehydration Stated Complaint: DEHYDRATED ED Provider: Min Pemberton Discharge Problem: Shortness of breath, Dehydration, Pleural effusion on left, UTI (urinary tract infection), History of breast cancer Patient Disposition: Admitted As Inpatient Discharge Instructions Interventions: ED Discharge Assessment Last Done: 12/10/18 22:25 Discharge Problem: UTI (urinary tract infection) Qualifiers: Urinary tract infection type: site unspecified Hematuria presence: without hematuria Qualified Code(s): N39.0 - Urinary tract infection, site not specified The scribe's documentation has been prepared under my direction and personally reviewed by me in its entirety. I confirm that the note above accurately reflects all work, treatment, procedures, and medical decision making performed by me.
[2018-12-11] MEDS: POT PHOSPHATE MONOBASIC W/ SOD TAB PO SCH ×5 (01:30→20:22)
[2018-12-11] MEDS: CALCIUM 600MG + VIT D 400 IU TAB PO SCH ×3 (01:30→20:22)
[2018-12-11] MEDS: CHECK FENTANYL PATCH PLACEMENT SCH ×4 (01:32→23:56)
[2018-12-11] MEDS: SODIUM CHLORIDE 0.9% 1000ML 1,000 ML IV SCH ×3 (01:37→20:22)
[2018-12-11] MEDS: ALBUMIN 25% 50 ML IV SCH ×2 (02:38→04:04)
[2018-12-11] MEDS: PIPERACILLIN/TAZOBACTAM 3.375 GM in DEXTROSE 5% 100 ML IV SCH ×3 (05:12→22:16)
--- NOTE | 2018-12-11 06:37 | Ultrasound Report ---
LEFT UPPER EXTREMITY VENOUS DOPPLER ULTRASOUND CLINICAL HISTORY: Left upper extremity swelling. Breast cancer. COMPARISON STUDY: PET/CT September 05, 2018. FINDINGS: A left internal jugular [id number] is noted. Evaluation of the left internal jugular vei n is difficult given left supraclavicular lymphadenopathy as shown on PET/CT of September 05, 2018. The le ft internal jugular vein is not well visualized on this exam. Left subclavian vein was not visualized due to overlying dressing and port. The left axillary, cephalic, brachial and basilic veins were pat ent as were the radial and ulnar veins. IMPRESSION: Technically difficult exam with suboptimal visualization. Left internal jugular and subcl elza veins not well visualized given lymphadenopathy and overlying sterile dressing. No venous throm bus within visualized portions of the left upper extremity. Electronically signed by: Earl Elizabeth M.D. 12/11/2018 6:35 AM
[2018-12-11 06:56] LABS: Hematocrit (blood only) 25.9 % (37-47); Mean Corpuscular Hgb Conc 30.9 g/dL (32-36); Mean Corpuscular Volume 87.5 fL (80-100); Mean Platelet Volume 9.1 fL (7.4-10.4); Platelet Count 216 K/uL (130-400); RDW Coefficient of Variation 19.5 % (11.5-14.5); RDW Standard Deviation 61.9 fL (36.4-46.3); Red Blood Count 2.96 M/uL (4.2-5.4); White Blood Count 12.11 K/uL (4.8-10.8)
[2018-12-11 07:26] LABS: Anisocytosis Present; Basophils # (auto) 0.03 K/uL (0-0.2); Basophils % (auto) 0.2 %; Dohle Bodies 3+; Eosinophils # (auto) 0.19 K/uL (0-0.5); Eosinophils % (auto) 1.6 %; Immature Granulocytes % (auto) 5.8 %; Lymphocytes # (auto) 0.39 K/uL (1.2-3.4); Lymphocytes % (auto) 3.2 %; Monocytes # (auto) 0.25 K/uL (0.11-0.59); Monocytes % (auto) 2.1 %; Neutrophils # (auto) 10.55 K/uL (1.4-6.5); Neutrophils % (auto) 87.1 %; Ovalocytes 1+; Toxic Granulation 1+
[2018-12-11 07:36] LABS: BUN Creatinine Ratio 17.5 (10-20); Calcium 7.4 mg/dl (8.5-10.1); Creatinine Clr Calc Pharmacy 108.5 ml/min; Est GFR (African American) 125.4; Est GFR (Non-African American) 108.2; Potassium 3.5 mmol/L (3.5-5.1)
[2018-12-11] MEDS ORDERED: LIDOCAINE HCL 2% (LOCAL) INJ 50 ML VIAL ONE (08:10)
--- NOTE | 2018-12-11 09:10 | XRay Report ---
XR chest 1V portable HISTORY: 58 years-old Female S/P Thoracentesis follow-up study in a patient with pleural effusions. Status post thoracentesis COMPARISON: Chest radiograph 12/10/2018 TECHNIQUE: Portable AP view of the chest FINDINGS: Cardiac silhouette is enlarged, unchanged. Stable positioning of the left IJ [id number] catheter. Right-sided pleural drainage catheter appears unchanged. Unchanged loculated right pleural effusion w ith persistent right midlung and right lung base airspace opacities. Decreased size of the left pleur al effusion with interval placement of a pleural drainage catheter about the left lung base. No postp rocedural pneumothorax identified. Surgical clips project over the bilateral axillary distributions. IMPRESSION: 1. Moderate left pleural effusion has decreased in size status post placement of a left-sided pleural drainage catheter. No postprocedural pneumothorax identified. 2. Study is otherwise unchanged from comparison. The above report was generated using voice recognition software. It may contain grammatical, syntax o r spelling errors. Electronically signed by: Merrill Renteria M.D. 12/11/2018 9:09 AM
[2018-12-11 10:03] LABS: Glucose Pleural Fluid 62 mg/dl
[2018-12-11 10:18] LABS: LDH Pleural Fluid 971 U/L; Total Protein Pleural Fluid 2.6 g/dl
[2018-12-11 10:27] LABS: Appearance Pleural Fluid CLOUDY; Basophils, Fluid 0 %; Color Pleural Fluid STRAW; Eosinophils, Fluid 0 %; Lymphocytes, Fluid 0 %; Mono,Macrophage,Mesothelial 0 %; Neutrophils, Fluid 0 %; RBC Pleural Fluid (A) 4000 /uL; Source Pleural Fluid LEFT LUNG; WBC Pleural Fluid (A) 4643 /uL
[2018-12-11] MEDS: VANCOMYCIN HCL 1,000 MG in SODIUM CHLORIDE 0.9% 250 ML IV SCH ×2 (10:30→17:23)
[2018-12-11] MEDS: ACETAMINOPHEN 325 MG TAB PO PRN ×2 (10:31→21:28)
--- NOTE | 2018-12-11 13:44 | Pharmacy Report ---
Pharmacy Abx Dose Short Note - Date of Service December 11, 2018 - Assessment & Plan A/P vancomycin and zosyn are being started empirically. Population p'kinetics: t1/2=8, ke=[id number] vancomycin 1500mg (23mg/kg) x1 given in ED vancomycin 1000mg (16mg/kg) q8 goal trough will be 15-20mcg/mL trough ordered for 12/12/18 @0930 Zosyn dosed appropriately based on renal fxn and clinical status. Pharmacy will continue to follow and will adjust dose/frequency as necessary. Thank you.
[2018-12-11] MEDS: OXYCODONE HCL IR 5 MG TAB (IMMEDIATE RELEASE) PO PRN (13:55)
--- NOTE | 2018-12-11 14:32 | Fluoroscopy Report ---
FL video swallow HISTORY: Aspiration. Dysphagia. r/o aspiration; XRT to bilateral neck TECHNIQUE: Video fluoroscopic evaluation of swallowing was performed in the AP and lateral projection s by the speech pathology staff. The patient is fed nectar-thick and thin liquid barium, a barium coa amira wafer, and barium pudding. FLUOROSCOPY TIME: 2.4 minutes NUMBER OF FLUOROSCOPIC IMAGES: [id number] COMPARISON STUDY: None. FINDINGS: There is normal hyoid excursion and epiglottic deflection. Sent aspiration with thin liquid s. Trace amount of penetration with semisolid and/or thicker liquids. No evidence for aspiration with semisolid foods. IMPRESSION: 1. 1. Aspiration with thin liquids. 2. Penetration with thicker liquids. 3. Please see the speech pathologist report for detailed findings and recommendations. The above report was generated using voice recognition software. It may contain grammatical, syntax or spelling errors. Electronically signed by: Roverto Flynn M.D. 12/11/2018 2:31 PM
--- NOTE | 2018-12-11 15:15 | Consultation Report ---
DATE OF CONSULTATION: 12/11/2018 REASON FOR CONSULTATION: Malignant pleural effusion. HISTORY OF PRESENT ILLNESS: Machelle is an unfortunate 58-year-old female who has metastatic breast cancer and has bilateral malignant effusions. I performed a thoracentesis on 11/10/2018 but the fluid quickly reaccumulated. She was quite symptomatic. On 11/23/2018, I performed a right PleurX catheter insertion and tapped her left side. I got 3000 mL total. The patient presented back in as she was dehydrated and her left pleural effusion has reaccumulated, she is short of breath. She has orthopnea. I discussed this in detail with her. We have been asked to evaluate her for possible PleurX catheter. Saturations are 96% on 2 liters. PAST MEDICAL HISTORY: 1. Metastatic breast cancer with bilateral malignant pleural effusions. 2. History of migraine headaches. PAST SURGICAL HISTORY: 1. Bilateral mastectomies with reconstruction. 2. Total abdominal hysterectomy. 3. Insertion of Port-A-Cath. 4. Tonsillectomy. 5. Insertion of a right PleurX catheter. 6. Status post bilateral thoracentesis. MEDICATIONS: Please see chart. ALLERGIES: TRAMADOL AND SULFA. SOCIAL HISTORY: The patient's sister works here at [employer] in the [place]. The patient lives with her niece, has no children. 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 She is a lifetime nonsmoker. FAMILY MEDICAL HISTORY: Metastatic carcinoma in her mother and her brother with Hodgkin's lymphoma, suffered from myocardial infarction and at 51. Her father is alive and healthy. She also had a sister with colon cancer. REVIEW OF SYSTEMS: The patient states that she has been quite tired. She has had some orthopnea. Otherwise, her review of systems is unchanged since our last evaluation 2 weeks ago. She has become more short of breath. PHYSICAL EXAMINATION: GENERAL: This is an ill-appearing female who wears glasses. She is awake and alert. Her oral mucosa is quite dry. HEENT: Her pupils are equally round, but small and reactive. Sclerae are pale and anicteric. LUNGS: She had decreased breath sounds on the left relative to the right upon auscultation of the lung. SKIN: She has radiation skin changes in her neck, has fullness, more so on the left side than the right. She has a regular rate and rhythm of her heart. Port-A-Cath incision as well as her mastectomy and reconstruction incisions are clean. Her PleurX site is clean on the right. EXTREMITIES: She has no significant edema in her lower extremities. She has palpable pulses. ABDOMEN: Soft, nontender. HEART: She has a regular rhythm of her heart. However, it is fairly rapid at about 115 beats per minute. NEUROLOGIC: She has no focal deficits. ASSESSMENT AND PLAN: Recurrent left malignant pleural effusion. We are going to tap her right PleurX catheter and then perform a PleurX catheter insertion on the left. We have discussed this a couple of different times, latest being on 11/23/2018 in the office. We will get her set up for that this morning.
--- NOTE | 2018-12-11 15:37 | Operative Report ---
DATE OF OPERATION: 12/11/2018 PREOPERATIVE DIAGNOSIS: Recurrent left malignant pleural effusion from metastatic breast cancer. POSTOPERATIVE DIAGNOSIS: Recurrent left malignant pleural effusion from metastatic breast cancer. PROCEDURE: Insertion of left PleurX catheter. SURGEON: Alexander Leonard MD. SLOT SUPERVISOR: BO Yu. ANESTHESIA: Local. SPECIFICS OF PROCEDURE: After appropriate consent had been obtained and appropriate timeout called. A sterile field was set up and all participants were gowned and gloved and had a caps on. I had selected an area of the left lateral lower chest with ultrasound and marked with an indelible ink and then prepped and draped in usual sterile fashion. A 25-gauge needle with 1% Xylocaine was used to anesthetize the skin and subcutaneous tissues at 2 different areas. They were about 12 cm apart with the second weal being inferior and anterior almost to the anterior axillary line. A larger bore needle was then used to enter the pleural cavity, we aspirated clear fluid out of the posterior skin site. This incision was opened up to about 1 cm. A guidewire was inserted through the needle and the needle removed. Another 1 cm incision was made anteriorly. A long needle was used to anesthetize the subcutaneous tissues between the 2 areas and a tunneler was attached to PleurX catheter and dragged from the anterior to posterior incision. Tunneler was removed. Dilator was slid over the guidewire and then the guidewire removed. Introducer sheath with peel away catheter was slid over the guidewire. Inner cannula guidewire removed and the PleurX catheter was slid through the peel-away sheath which was removed. Two separate 2-0 silk sutures were used to close the posterior incision and 2-0 silk suture was used to anchor the catheter to the patient's skin anteriorly. 1400 mL of a yellow fluid was drained. In addition, we sent off some fluid from the right PleurX catheter after we drained about 320 mL from that. The patient tolerated the procedure well, although she has more fluid on the left side, but we stopped due to reexpansion pain and coughing. She tolerated it well. Antimicrobial dressings were placed and the catheter was capped. I attest to the content of the Intraoperative Record and any orders documented therein. Any exceptions are noted below. ALEIDAD
--- NOTE | 2018-12-11 17:39 | Oncology Consultation ---
Date of Consultation December 11, 2018 Assessment & Plan (1) Breast cancer: Ms. Russo has advanced metastatic TNBC that has progressed on multiple prior regimens. She recently started Doxil in the 5th line setting. She has had issues with both cycles. She will need to have a conversation with Dr. Holguin as an outpatient regarding her prognosis and the utility of further treatment. For now, she is not due again for treatment until late December. Her malignant effusions have been managed with pleural catheters that will likely need to remain in place. This should make her more comfortable and address her issues with shortness of breath. She had aspiration of thin liquids on a video swallow study. She will need to speak with speech therapy and possibly nutrition regarding dietary modifications Present on Admission?: Yes (2) UTI (urinary tract infection): She had some dysuria prior to admission and a UA that appears infectious. She is on broad spectrum antibiotics. Her ANC was high on admission, but this could still be related to Neulasta. However, in the presence of an apparent infection, I would certainly treat it. Present on Admission?: Yes History of Present Illness Reason for Consultation: Metastatic breast cancer Shortness of breath Attending Physician: Ottoniel Perdomo MD History of Present Illness Ms. Russo is a 58 year old woman with a history of metastatic triple negative breast cancer. She was originally diagnosed in 2013 and was treated with neoadjuvant chemotherapy and then surgery. She presented with metastatic disease in early 2016 and has received a variety of chemotherapies since that time, including Abraxane, carboplatin/gemcitabine, Xeloda, and navelbine. In late October, she started Doxil and received her second dose on 12/04/18. She has been experiencing nausea, vomiting, and dysphagia since 12/07. She came to the ER on 12/10 with worsening shortness of breath that was attributed to a malignant pleural effusion. She had a Pleurx catheter placed this morning and is breathing more comfortably now. She has pain in her neck from bilateral metastatic lymph leandra disease that she thinks may be progressive. She had some dysuria and a sensation of incomplete urination at home prior to presenting. She denied any purulent sputum or diarrhea. She has some pain in her anterior chest wall from metastatic disease, but denies any exertional symptoms. Allergies Allergy/AdvReac Type Severity Reaction Status Date / Time Sulfa (Sulfonamide Allergy Intermediate HIVES Verified 12/10/18 16:05 Antibiotics) tramadol AdvReac Intermediate Nausea/Vomi Verified 12/10/18 16:05 ting Home Medications Home Medications Medication Instructions Recorded Confirmed Type ondansetron HCl 8 mg tablet 8 mg PO TID PRN 04/20/18 12/10/18 History acetaminophen [Tylenol] 325 - 650 mg PO Q6H PRN 05/31/18 12/10/18 History potassium chloride 10 meq PO DAILY 05/31/18 12/10/18 History Caltrate 600-D Plus Minerals 1 tab PO BID #60 tab 10/29/18 12/10/18 Rx Phospha 250 Neutral 1 tab PO QID #120 tab 10/29/18 12/10/18 Rx fentanyl 12 mcg TRANSDERMAL Q3D #5 ea 10/29/18 12/10/18 Rx gabapentin 100 mg PO HS #30 cap 10/29/18 12/10/18 Rx Patient History Medical History Pleural effusion (Acute) Weakness (Acute) Breast cancer (Acute) Tachycardia (Acute) Edema Hypomagnesemia Weakness Hypokalemia Hypotension DVT prophylaxis Anemia Anemia associated with chemotherapy (~11/2012) BRCA1 genetic carrier 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 Breast cancer (~08/2012) Cancer of midline of right female breast (10/01/12) "Right breast mass Status post biopsy of the right breast and axilla revealing infiltrating ductal carcinoma 10/01/2012 Estrogen receptor negative, progesterone receptor negative, HER-2/violeta negativ e Status post neoadjuvant chemotherapy Adriamycin and Cytoxan followed by Taxol for 4 cycles Status post right breast skin sparing mastectomy and right axillary lymph node dissection, left breast skin sparing mastectomy and lymph node injection and sentinel lymph node biopsy 04/10/2014 Right breast [id number] left breast no pathologic findings Status post reconstruction with bilateral silicone implants Status post completion of radiation therapy 07/10/2013 received 6120 cGy BRCA1 testing positive Finding of a right neck mass March 2016 Status post FNA revealing metastatic adenocarcinoma of breast origin PET/CT revealing extensive metastatic disease. 6 cycles of chemotherapy with Abraxane PET/CT revealing improvement August [address] November 2016 showing progression Currently undergoing chemotherapy with gemcitabine and carboplatin" On 02/24/15 13:29 Linda Roth wrote "Right breast mass Status post biopsy of the right breast and axilla revealing infiltrating ductal carcinoma 10/01/2012 Estrogen receptor negative, progesterone receptor negative, HER-2/violeta negative Status post neoadjuvant chemotherapy Adriamycin and Cytoxan followed by Taxol for 4 cycles Status post right breast skin sparing mastectomy and right axillary lymph node dissection, left breast skin sparing mastectomy and lymph node injection and sentinel lymph node biopsy 04/10/2014 Right breast [id number] left breast no pathologic findings Status post reconstruction with bilateral silicone implants Status post completion of radiation therapy 07/10/2013 received 6120 cGy BRCA1 testing positive" Metastasis to lymph nodes Metastatic breast cancer Breast CA (Acute) Constipation (Acute) Migraine (Acute) Surgical History H/O bilateral mastectomy (Acute) History of hysterectomy (Acute) S/P tonsillectomy Family History Brother Myocardial infarction Hodgkins disease Uncle Myocardial infarction Grandmother (Paternal) Heart disease Sister Colon cancer Other Cancer Diabetes Hypertension Social History Preferred Language: Indonesian Communication Ability: Effective Visual Impairment: No Limitations Hearing Ability: Normal Building And Construction Manager Required: No Beliefs That Will Affect Care: None marital status: Single Current Living Situation: Family current occupational status: employed current occupation: bookkeeper assistant at [employer] Feels Safe at Home: Yes Safety Concerns: Feels Safe At This Time Smoking Status: Never smoker Second Hand Exposure: No ; Hx Alcohol Use: No Hx Substance Use: No Dental Care, Regularly: Yes Physical Activity Frequency: Daily Review of Systems Review of Systems: All systems reviewed & are unremarkable except as noted in HPI & below Physical Exam Constitutional: + ill appearing (chronically) and comfortable; no acute distress ENMT: external ear and nose normal, oropharynx normal Neck: Her neck is firm and indurated bilaterally from metastatic disease in her cervical lymph nodes. She has limited mobility of her neck as a result Respiratory: normal respiratory effort Auscultation: + diminished lung sounds (at the bases); no crackles new Pleurx catheter in her left chest was clean and dry Cardiovascular: RRR, no murmur, no edema Gastrointestinal (Abdomen): Inspection/Auscultation: normal bowel sounds; abdomen not distended Percussion/Palpation: abdomen soft; abdomen nontender Psychiatric: A+Ox3, euthymic affect Lymphatic: + cervical lymphadenopathy Results & Data Vital Signs (Past 12 Hours) Vital Signs Temp Pulse Pulse Resp BP Pulse Ox 12/11/18 15:55 36.7 C 110 H 17 97/69 L 96 12/11/18 12:02 36.5 C 112 H 18 92/66 L 96 12/11/18 08:00 116 H 12/11/18 07:40 36.7 C 118 H 18 102/67 92 Laboratory Results Laboratory Tests 12/10/18 12/10/18 12/11/18 17:23 17:59 06:32 WBC 18.74 H 12.11 H Hgb 9.4 L 8.0 L Plt Count 290 216 Neut # (Auto) 16.44 H 10.55 H Sodium 135 L Creatinine 0.52 L Calcium 7.9 L AST 39 H Alkaline Phosphatase 214 H Albumin 2.2 L Diagnostic Findings LUE Doppler US, 12/10: IMPRESSION: Technically difficult exam with suboptimal visualization. Left internal jugular and subclavian veins not well visualized given lymphadenopathy and overlying sterile dressing. No venous thrombus within visualized portions of the left upper extremity. Video Swallow, 12/11: IMPRESSION: 1. 1. Aspiration with thin liquids. 2. Penetration with thicker liquids. 3. Please see the speech pathologist report for detailed findings and recommendations. (1) UTI (urinary tract infection) Hematuria presence: without hematuria Urinary tract infection type: site unspecified Qualified Code(s): N39.0 - Urinary tract infection, site not specified
--- NOTE | 2018-12-11 21:34 | Hospitalist Progress Note ---
Date of Service December 11, 2018 Assessment & Plan (1) Chemotherapy induced nausea and vomiting: Suspect this is the main cause of her admission, causing dehydration Consult heme/onc placed to assist in ongoing outpatient management (2) Pleural effusion on left: Appreciate thoracic surgery management. Reports marked improvement with SOB after pleurx catheter placed for malignant effusion. Gram stains pending. (3) Severe protein-calorie malnutrition: Tire Manager consult placed (4) UTI (urinary tract infection): Unclear if bacteruria vs. true infection but given immunosuppressed state, reduced urinary frequency, positive urine culture, tachycardia and hypotension will treat as UTI with Zosyn until cultures back. Stop Vancomycin - GNR on culture and not concerned about MRSA PNA. (5) Metastatic breast cancer: No blood pressure from right side (6) Swallowing difficulty: Unclear if having nausea related from chemotherapy causing appetite issues although also describes problems swallow. Recommend crushing any medications that can be crushed - plan to switch over any that cannot be crushed SLT consult placed. (7) Anemia: Suspect currently chemotherapy induced. Continue to trend. Will transfuse < 7. (8) Leukocytosis: Unclear if related to UTI vs. Neulesta. Appreciate heme/onc consult and will continue to trend (9) Dehydration: Secondary to N&V IV fluids continue (10) Shortness of breath: (11) Weakness: (12) Weakness: PT/OT - acute deterioration temporary from chemo (13) Hypomagnesemia: repeat levels i AM (14) Hypokalemia: replace as needed Daily labs (15) Tachycardia: Sinus tachycardia on EKG. Regular rhythm on exam. ?related to infection/chemo/dehydration/metastatic ca. Will continue on IV fluids for now as tolerated. (16) Hypotension: Usually runs a low normal blood pressure with tachycardia. Will continue with IV fluids as tolerated (17) DVT prophylaxis: Lovenox 40mg SQ daily Subjective Patient feels breathing much improved since Pleurx catheter placed Revisited history with the patient. Reports nausea and vomiting occurring initially after her last chemotherapy. Reduced appetite and feeling full up quickly. Denies aspiration from food or drink but does report problems swallowing pills. She denies any dysuria, change in color or smell or urine. Reduced urine frequency which she puts down to reduced PO intake. No cough. She did report increasing shortness of breath. She reportedly had Neulasta on . Review of Systems Review of Systems: All systems reviewed & are unremarkable except as noted in HPI & below Physical Exam Constitutional: well developed, + frail appearing and + malnourished; no acute distress Eyes: + anicteric sclerae; normal pupil size ENMT: Mouth: + dry oral mucous membranes Neck: trachea midline Respiratory: able to speak in complete sentences; no respiratory distress and no cough Auscultation: lungs clear to auscultation bilaterally and + diminished lung sounds (Bilateral bases) Cardiovascular: Rate/Rhythm: regular rhythm and + tachycardic Extremities: + pedal edema (1+ b/l) Gastrointestinal (Abdomen): Inspection/Auscultation: normal bowel sounds; abdomen not distended Percussion/Palpation: abdomen soft; abdomen nontender (Right upper quadrant), no guarding and abdomen not rigid Musculoskeletal: Extremities: strength 5/5 throughout (grossly normal) Skin: radiation skin changes to neck. Port-a-cath present on left Neurologic: moves all extremities and awake; no focal motor deficits and not confused Psychiatric: A+Ox3, euthymic affect Results & Data Vital Signs (Past 12 Hours) Vital Signs Temp Pulse Pulse Resp BP Pulse Ox 12/11/18 19:19 97.7 F 112 H 14 96/67 L 96 12/11/18 16:00 80 12/11/18 15:55 98.1 F 110 H 17 97/69 L 96 12/11/18 12:02 97.7 F 112 H 18 92/66 L 96 PG Care Time/CCT Total # of Minutes Spent Total Time Spent with Patient: Total time spent is greater than 50% in coordination of care (as documented) at patient's floor/unit and/or counseling patient: (1) UTI (urinary tract infection) Hematuria presence: without hematuria Urinary tract infection type: site unspecified Qualified Code(s): N39.0 - Urinary tract infection, site not specified (2) Anemia Anemia type: unspecified type Qualified Code(s): D64.9 - Anemia, unspecified (3) Swallowing difficulty Dysphagia type: unspecified Qualified Code(s): R13.10 - Dysphagia, unspecified (4) Leukocytosis Leukocytosis type: unspecified Qualified Code(s): D72.829 - Elevated white blood cell count, unspecified (5) Hypotension Hypotension type: unspecified hypotension type Qualified Code(s): I95.9 - Hypotension, unspecified
[2018-12-12] MEDS: SODIUM CHLORIDE 0.9% 1000ML 1,000 ML IV SCH ×2 (05:29→16:19)
[2018-12-12] MEDS: PIPERACILLIN/TAZOBACTAM 3.375 GM in DEXTROSE 5% 100 ML IV SCH ×2 (05:34→14:00)
--- NOTE | 2018-12-12 07:14 | XRay Report ---
XR chest 1V portable CLINICAL HISTORY: effusion COMPARISON STUDY: 12/11/2018 FINDINGS: The heart is enlarged. There is a left-sided A-Port catheter present. There are bilateral b reast implants. Surgical clips project over both axillary regions. There are persistent pleural effus ions left greater than right with associated basilar airspace opacities likely representing compressi ve atelectasis.[ IMPRESSION: 1. No significant change in the bilateral pleural effusions left greater than right with associated b asilar airspace opacities likely representing compressive atelectasis 2. Bilateral chest tubes are again visualized 3. No evidence of pneumothorax Electronically signed by: Shilo Kenney M.D. 12/12/2018 7:13 AM
[2018-12-12 07:27] LABS: Hematocrit (blood only) 25.8 % (37-47); Mean Corpuscular Hemoglobin 27.2 pg (25-34); Mean Corpuscular Volume 87.8 fL (80-100); Mean Platelet Volume 9.4 fL (7.4-10.4); Platelet Count 185 K/uL (130-400); RDW Coefficient of Variation 19.2 % (11.5-14.5); RDW Standard Deviation 61.3 fL (36.4-46.3); Red Blood Count 2.94 M/uL (4.2-5.4); White Blood Count 5.09 K/uL (4.8-10.8)
[2018-12-12 07:29] LABS: Basophils # (auto) 0.03 K/uL (0-0.2); Basophils % (auto) 0.6 %; Dohle Bodies 1+; Eosinophils # (auto) 0.36 K/uL (0-0.5); Eosinophils % (auto) 7.1 %; Immature Granulocytes # (auto) 0.27 K/uL (0.00-0.02); Immature Granulocytes % (auto) 5.3 %; Lymphocytes % (auto) 5.9 %; Monocytes # (auto) 0.11 K/uL (0.11-0.59); Monocytes % (auto) 2.2 %; Neutrophils # (auto) 4.02 K/uL (1.4-6.5); Neutrophils % (auto) 78.9 %; Ovalocytes 1+
[2018-12-12 07:43] LABS: Albumin Level 1.9 gm/dl (3.4-5.0); BUN Creatinine Ratio 17.1 (10-20); Calcium 7.4 mg/dl (8.5-10.1); Creatinine Clr Calc Pharmacy 129.2 ml/min; Est GFR (African American) 132.8; Est GFR (Non-African American) 114.6; Magnesium 1.6 mg/dl (1.8-2.4); Potassium 3.1 mmol/L (3.5-5.1)
[2018-12-12] MEDS ORDERED: POTASSIUM CHLORIDE 20 MEQ TABCR PO STA (07:46)
[2018-12-12 07:54] LABS: Albumin Globulin Ratio 0.7 (0.9-2); Bilirubin,Total 0.6 mg/dl (0.2-1); Globulin 2.8 gm/dl (2.5-4.0); Total Protein 4.7 gm/dl (6.4-8.2)
[2018-12-12] MEDS: ACETAMINOPHEN 325 MG TAB PO PRN ×2 (08:12→21:46)
[2018-12-12] MEDS: CHECK FENTANYL PATCH PLACEMENT SCH ×3 (08:13→23:54)
[2018-12-12] MEDS: CALCIUM 600MG + VIT D 400 IU TAB PO SCH ×2 (08:14→20:31)
[2018-12-12] MEDS: POT PHOSPHATE MONOBASIC W/ SOD TAB PO SCH ×4 (08:15→20:32)
--- NOTE | 2018-12-12 08:25 | Surgery Progress Note ---
Date of Service December 12, 2018 Assessment & Plan (1) Breast cancer: -pt. noted to have bilateral pleural effusions -she has had right thoracentesis on 11/10/18; pleurex placed on 11/23/18 -left thoracentesis performed on 11/23/18; pleurex placed on 12/11/18 -this morning right side drained for 500 cc fluid, left drained for 550 -cultures of both sides sent on 12/11/18 and are thus far (-) for growth -continue daily drainage -follow culture results Subjective Pt. denies shakes, chills fevers. She feels as though her breathing is more comfortable since admission. She notes there was not much pain when her catheters were drained this morning. Physical Exam Constitutional: + ill appearing; no acute distress Respiratory: no respiratory distress and no labored breathing BS decreased bilaterally Results & Data Vital Signs (Past 12 Hours) Vital Signs Temp Pulse Pulse Resp BP Pulse Ox 12/12/18 07:10 36.5 C 111 H 22 92/64 L 99 12/12/18 03:06 36.8 C 108 H 20 93/61 L 93 12/11/18 23:51 36.5 C 111 H 22 100/68 96 PG Care Time/CCT Total # of Minutes Spent Total Time Spent with Patient: Total time spent is greater than 50% in coordination of care (as documented) at patient's floor/unit and/or counseling patient: (1) Breast cancer Breast location: unspecified site of breast Estrogen receptor status: unspecified Laterality: unspecified laterality Patient sex: female Qualified Code(s): C50.919 - Malignant neoplasm of unspecified site of unspecified female breast
[2018-12-12] MEDS ORDERED: MAGNESIUM SULFATE / D5W 1 GM/100 ML BAG IV STA (08:37)
[2018-12-12] MEDS: MAGNESIUM SULFATE / D5W 1 GM/100 ML BAG IV SCH ×2 (08:53→10:15)
[2018-12-12] MEDS ORDERED: ENOXAPARIN INJ 40 MG/0.4 ML SYR SQ SCH (09:00)
[2018-12-12] MEDS ORDERED: POTASSIUM CHLORIDE / WTR 10 MEQ/100 ML PLCT IV SCH (09:00)
[2018-12-12] MEDS ORDERED: VANCOMYCIN TROUGH ONE (09:30)
[2018-12-12] MEDS: ONDANSETRON INJ 2 MG/ML 2 ML VIAL IV PRN (12:42)
[2018-12-12] MEDS ORDERED: OPTIRAY 320 125ml IV PRN (13:52)
--- NOTE | 2018-12-12 14:12 | CT Scan Report ---
CT angio chest PE protocol HISTORY: 58 years-old Female with stage 4 breast ca, tachy, dyspnea; eval PE. Acute shortness of br eath and tachycardia patient with history of stage IV breast cancer TECHNIQUE: Multiple CTA images of the chest were obtained after the intravenous administration of 118 ml Optiray 320. Coronal and sagittal MIPS were obtained from the axial data set and were submitted for review. All measurements were obtained according to NASCET criteria. A dose lowering technique w as utilized adhering to the principles of ALARA. COMPARISON: CT soft tissue neck of same day, PET CT 09/05/2018, chest CT 02/27/2018 FINDINGS: CTA: Heart is normal in size. Small pericardial effusion. No thoracic aortic aneurysm or dissection. Paten cy of the imaged great vessels. Satisfactory opacification of the pulmonary arterial tree. Bilateral pulmonary emboli are noted within the distal right left main pulmonary arteries extending into the lo bar, segmental and subsegmental branches of all lobes bilaterally, most pronounced within the right l ower lobe. No saddle embolus or definite evidence of right heart strain. Left subclavian [id number] t catheter distal tip terminates within the region of the superior cavoatrial junction. CT CHEST: Unremarkable thyroid. Partially imaged lower left cervical chain adenopathy redemonstrated along with left supraclavicular lymph nodes. Innumerable soft tissue nodules/masses of the left breast and ante rior chest wall which has progressed from 09/05/2018 exam. Moderate diffuse body wall edema with diffu se dermal thickening. Bilateral breast implants again noted. Surgical clips of the bilateral axillary chains. Multiple nodules/lymph nodes of the left axillary distribution have also progressed in addit ion to innumerable epicardial nodule/masses measuring up to 2.0 cm and the left. Several these nodule s about the pericardial surfaces. Progressive pathologically enlarged mediastinal and bilateral hilar lymph nodes. Large left and small right pleural effusions with left greater than right bibasilar compressive atele ctasis. Additional consolidation of the basal right lower lobe is noted. Right-sided chest tube termi nates adjacent to the right lung base. Bilateral bronchial wall thickening. Reticular opacities of th e right upper lung are suggestive of scarring. A left-sided chest tube is noted with distal tip termi nating adjacent to the anterior left upper lung. 4 mm nodular focus of the right middle lobe adjacent to a pulmonary vessel. Central airways appear patent. Pleural and subpleural nodules are seen measur ing up to 1.1 x 1.8 cm on the left on image 51 of series 4. No definite new bone lesions identified. No acute fracture. IMPRESSION: 1. Extensive bilateral pulmonary emboli. 2. Bilateral chest tubes as above with large left and small right pleural effusions. 3. Left greater than right bibasilar compressive atelectasis with additional heterogeneous consolidat ion of the right lung base suggestive of pneumonitis versus pulmonary infarction. 4. Progression of extensive metastatic disease as above. The above report was generated using voice recognition software. It may contain grammatical, syntax o r spelling errors. Electronically signed by: Merrill Renteria M.D. 12/12/2018 2:11 PM
--- NOTE | 2018-12-12 14:21 | CT Scan Report ---
CT soft tissue neck w con HISTORY: extensive L sided cervical adenopathy; pain; eval abscess TECHNIQUE: Multiaxial CT images of the neck were performed following the use of intravenous contrast. COMPARISON STUDY: Radiation oncology neck CT 10/18/2018. PET CT 09/05/2018. FINDINGS: Significant progression of the left-sided cervical lymphadenopathy compared to the prior st udies which involves the entire left lateral side of the neck. This extends throughout the left neck superficial soft tissues, muscular compartments of the left neck, and deep soft tissue compartments o f the left neck to the level the carotid space. Total size of the soft tissue/lymphadenopathy measure s up to 8 cm. Superior mediastinal lymphadenopathy, bilateral pleural effusions, and pulmonary edema are also partially visualized. Fibrotic change noted within the right lung apex. No suspicious lytic or blastic osseous lesions. The visualized orbits and brain parenchyma are unremarkable. Majority of these cervical lymph nodes appear necrotic. Therefore, superimposed infection would be impossible to exclude. There is associated subcutaneous and deep soft tissue edema throughout the left side the nec k which results in mild right deviation of the hypopharynx and proximal trachea. The airway remains p atent. The left internal jugular vein is severely compressed. Partially visualized left jugular Port- A-Cath. There are few new enlarged right cervical lymph nodes with the largest measuring 1.5 cm. This is partially necrotic. Multiple dermal enhancing soft tissue nodules seen throughout the left side o f the neck and upper chest consistent with sites of metastatic disease. IMPRESSION: 1. Extensive necrotic lymphadenopathy and abnormal enhancing soft tissue seen throughout the neck, le ft greater than right, as described above consistent with progression of metastatic disease. 2. The majority of these lymph nodes appear necrotic. A superimposed infection would be impossible to exclude. 3. Please refer to the same day chest CT for further evaluation of the lung apices and extensive soft tissue tumor throughout the upper chest. Electronically signed by: Claus Rico M.D. 12/12/2018 2:20 PM
[2018-12-12] MEDS: Heparin IV Standard *NO* Bolus IV SCH ×2 (17:02→17:03)
[2018-12-12] MEDS ORDERED: HYDROmorphone INJ 0.5 MG/0.5 ML SYR IV PRN (17:08)
[2018-12-12 17:39] LABS: Partial Thromboplastin Ratio 1.1; Partial Thromboplastin Time 30.8 Seconds (21.0-31.0)
[2018-12-12] MEDS: HEPARIN SODIUM/DEXTROSE 25,000 UNITS/500 ML BAG IV SCH (17:46)
--- NOTE | 2018-12-12 18:16 | Hospitalist Progress Note ---
Date of Service December 12, 2018 Assessment & Plan (1) Metastatic breast cancer: severe, progressive, extensive stage 4 disease with NUMEROUS mets to neck, chest, skin, etc. this is despite recent attempts at chemotherapy. spoke with Dr Holguin - updated him with chest CT results. he plans to speak with her tomorrow to discuss transitioning to palliative care/hospice. chemotherapy is not providing benefit - if anything it is causing numerous side effects. focus on comfort. add dilaudid 0.5mg prn. cont fentanyl - consider increase tomorrow. (2) Pulmonary emboli: extensive on CTA today. likely a cause of her tachycardia along with dyspnea, chest discomfort, etc. start heparin drip. consider lovenox or xarelto at discharge. (3) Malignant pleural effusion: b/l s/p b/l pleurX insertion - left sided catheter placed this admission by Dr Leonard. the CTA today shows a large effusion on left despite the pleurX - this is concerning for loculation. made Mr Haley aware of CT findings. continue daily drain b/l (4) Severe protein-calorie malnutrition: ongoing (5) Chemotherapy induced nausea and vomiting: improved cont supportive care, anti-emetics, etc (6) Tachycardia: likely multifactorial - SIRS, PEs, dehydration, etc. heparin for PEs fluids etc cortisol level wnl (7) Hypomagnesemia: replace IV repeat level am (8) Weakness: multifactorial - extensive cancer, UTI, PEs, depression, chemo side effects, etc supportive care (9) Hypokalemia: replace IV repeat level am (10) Hypotension: PEs could be contributing sepsis/SIRS from UTI, etc could be contributing cortisol wnl H/H low but acceptable follow (11) UTI (urinary tract infection): d/c zosyn change to keflex (12) DVT prophylaxis: systemic heparin drip updated father - he plans to visit about 3pm tomorrow updated Dr Holguin - appreciate his visit tomorrow poor prognosis Subjective pt c/o left-sided pleuritic pain. dyspnea is better than at admission but still with KAUR. c/o left-sided neck pain. poor appetite still present. very tired, weak. has not felt well since October. tele - sinus tach. spoke with Ra Haley today, Dr Holguin, and pt's father all by phone. Review of Systems Constitutional: + fatigue and + anorexia; no fever and no chills Respiratory: + cough, + dyspnea and + pain on inspiration Cardiovascular: as per Subjective / HPI and + chest pain Gastrointestinal: + nausea; no vomiting Neurologic: + dizziness Physical Exam Constitutional: + ill appearing; + not well developed, + not well nourished and no acute distress looks older than stated age ENMT: Mouth: no oral mucosal abnormality Neck: extensive swelling of left neck (also to a degree right neck) -- numerous swollen glands and/or masses - very firm and tender to touch; no discrete abscess Respiratory: Auscultation: + diminished lung sounds (both bases) b/l pleurX catheters in place Cardiovascular: Rate/Rhythm: regular rhythm and + tachycardic Heart Sounds: normal S1 and normal S2 Vessels: posterior tibial pulses present and dorsalis pedis pulses present; no JVD Extremities: no edema Gastrointestinal (Abdomen): normal bowel sounds, soft, nontender, no hepatosplenomegaly Skin: + scar (extensive - right upper chest; port in place left chest ) Psychiatric: Orientation: alert and oriented x 3 Affect: + flat affect Results & Data Vital Signs (Past 12 Hours) Vital Signs Temp Pulse Pulse Resp BP Pulse Ox 12/12/18 15:43 36.6 C 89 18 94/65 L 94 12/12/18 11:09 36.2 C L 105 H 16 90/62 L 91 12/12/18 09:06 115 H 12/12/18 07:10 36.5 C 111 H 22 92/64 L 99 Diagnostic Findings CTA chest - IMPRESSION: 1. Extensive bilateral pulmonary emboli. 2. Bilateral chest tubes as above with large left and small right pleural effusions. 3. Left greater than right bibasilar compressive atelectasis with additional heterogeneous consolidation of the right lung base suggestive of pneumonitis versus pulmonary infarction. 4. Progression of extensive metastatic disease as above. PG Care Time/CCT Total # of Minutes Spent Total Time Spent with Patient: Total time spent is greater than 50% in coordination of care (as documented) at patient's floor/unit and/or counseling patient: (1) Pulmonary emboli Pulmonary embolism type: other Chronicity: acute Acute cor pulmonale presence: without acute cor pulmonale Qualified Code(s): I26.99 - Other pulmonary embolism without acute cor pulmonale (2) Hypotension Hypotension type: unspecified hypotension type Qualified Code(s): I95.9 - Hy potension, unspecified (3) UTI (urinary tract infection) Hematuria presence: without hematuria Urinary tract infection type: site unspecified Qualified Code(s): N39.0 - Urinary tract infection, site not specified
[2018-12-12] MEDS: GABAPENTIN 100 MG CAP PO SCH (20:32)
[2018-12-13 00:54] LABS: Partial Thromboplastin Ratio 1.9
[2018-12-13 01:01] LABS: Partial Thromboplastin Time 50.4 Seconds (21.0-31.0)
[2018-12-13 06:45] LABS: Hematocrit (blood only) 25.8 % (37-47); Hemoglobin 8.1 g/dL (12.0-16.0); Mean Corpuscular Hemoglobin 27.6 pg (25-34); Mean Corpuscular Hgb Conc 31.4 g/dL (32-36); Mean Corpuscular Volume 87.8 fL (80-100); Mean Platelet Volume 10.1 fL (7.4-10.4); Platelet Count 176 K/uL (130-400); RDW Coefficient of Variation 19.3 % (11.5-14.5); RDW Standard Deviation 60.4 fL (36.4-46.3); Red Blood Count 2.94 M/uL (4.2-5.4); White Blood Count 3.67 K/uL (4.8-10.8)
[2018-12-13 07:03] LABS: Partial Thromboplastin Ratio 2.2
[2018-12-13 07:05] LABS: Partial Thromboplastin Time 58.8 Seconds (21.0-31.0)
[2018-12-13 07:12] LABS: BUN Creatinine Ratio 12.2 (10-20); Calcium 7.7 mg/dl (8.5-10.1); Creatinine Clr Calc Pharmacy 152.9 ml/min; Est GFR (African American) 136.1; Est GFR (Non-African American) 117.4; Magnesium 1.7 mg/dl (1.8-2.4); Potassium 3.3 mmol/L (3.5-5.1)
--- NOTE | 2018-12-13 08:10 | Surgery Progress Note ---
Date of Service December 13, 2018 Assessment & Plan (1) Pleural effusion: -due to bilateral pleural effusions, pt. required pleurex catheters on each side -right side drained fro 400 cc today, left side top be drained after am meal -discussed with hospitalist: -pt. noted to have bilateral PEs so she was started on heparin drip on 12/12/18 -oncology to see today to further discuss treatment options -continue drainage of pleurex catheters as ordered Supervising Physician Co-Signing Physician Notes The bilateral pleurx catheters drained about 800 cc's this am. She is not requiring oxygen. She had a sizeable pulmonary embolism upon presentation and is on heparin. I'm not very pleased with the left side on the CXR, but we will be simply drain this catheter daily and follow her. Subjective Pt. notes her breathing feels better since hospitalization. She does continue to have some SOB. No other complaints noted. Physical Exam Constitutional: + ill appearing; no acute distress Respiratory: BS decreased bilaterally Results & Data Vital Signs (Past 12 Hours) Vital Signs Temp Pulse Pulse Resp BP Pulse Ox 12/13/18 07:10 36.6 C 111 H 20 89/63 L 98 12/13/18 03:54 36.7 C 106 H 18 93/65 L 96 12/13/18 00:08 36.9 C 107 H 20 98/66 L 91 12/13/18 00:00 109 H 12/12/18 20:56 111 H PG Care Time/CCT Total # of Minutes Spent Total Time Spent with Patient: Total time spent is greater than 50% in coordination of care (as documented) at patient's floor/unit and/or counseling patient:
[2018-12-13] MEDS: cephALEXin 500 MG CAP PO SCH ×2 (08:16→20:16)
[2018-12-13] MEDS: POT PHOSPHATE MONOBASIC W/ SOD TAB PO SCH ×4 (08:17→20:16)
[2018-12-13] MEDS: CHECK FENTANYL PATCH PLACEMENT SCH ×2 (08:17→15:38)
[2018-12-13] MEDS: CALCIUM 600MG + VIT D 400 IU TAB PO SCH ×2 (08:17→20:17)
[2018-12-13] MEDS: SODIUM CHLORIDE 0.9% 1000ML 1,000 ML IV SCH ×2 (08:18→08:52)
--- NOTE | 2018-12-13 08:30 | Progress Note ---
DATE: 12/13/2018 DIAGNOSES: 1. Metastatic triple negative breast cancer. 2. Dysphagia. 3. Urinary tract infection. 4. Pancytopenia attributable to chemotherapy. 5. Electrolyte dysfunction. 6. Pulmonary embolism. 7. Chemotherapy-induced nausea and vomiting. 8. Bilateral malignant pleural effusions. SUBJECTIVE: Machelle is a very pleasant but unfortunate 58-year-old female under my care with end-stage triple negative metastatic breast cancer. Machelle had been receiving salvage Doxil. This is now her third admission in the last several weeks because of difficulties incurred by most likely chemo, but also disease progression. She now has developed dysphagia and increased left-sided neck pain. She was recently diagnosed with pulmonary embolism and currently on unfractionated heparin. Dr. Abdiel Huff managing hospitalist contacted me yesterday to alert me to Machelle's clinical downward spiral. I purposely went up today to discuss her code status and where we go forward therapeutically. Clearly, she can no longer receive cytotoxic chemotherapy in her current state. She is maintaining an appetite, but again eating and drinking has been difficult. OBJECTIVE: GENERAL: Pleasant 58-year-old female, in no acute distress. VITAL SIGNS: Temperature 36.6, pulse 111, respiratory rate 20, blood pressure 89/63. SKIN: She has a multitude of cutaneous metastatic lesions, particularly on her trunk. HEENT: Oral mucosa is dry. NECK: Bulky lymphadenopathy cervically. HEART: Tachy, but regular. LUNGS: Diminished breath sounds in the posterior bases bilaterally. ABDOMEN: Soft, nontender, nondistended. EXTREMITIES: No clubbing, cyanosis or edema. NEUROLOGIC: Grossly intact. RADIOGRAPHIC DATA: CT scan of the neck done yesterday reveals extensive necrotic lymphadenopathy and abnormal enhancing soft tissue seen throughout the neck, left greater than right, consistent with disease progression. CTA of the chest, extensive bilateral pulmonary emboli, bilateral chest tubes with large left and small right pleural effusions noted. LABORATORY DATA: WBC count of 3670, hemoglobin 8.1, platelet count 176,000. Sodium 140, potassium 3.3, chloride 108, carbon dioxide 25, creatinine 0.39, BUN 5, magnesium 1.7. IMPRESSION: 1. Pulmonary embolism. 2. Intractable nausea and vomiting attributable to chemotherapy. 3. Progressing metastatic triple negative breast cancer. 4. Dysphagia. PLAN: Again, as requested by Dr. Huff, had a jam and lengthy discussion with Machelle about her current clinical state. Radiographically, there is gross evidence that she is indeed progressing despite Doxil salvage chemotherapy. I believe it is just a matter of time before she develops multiorgan failure. She is currently a full code and I have asked her to seriously consider changing her status to no code. I think the possibility of serious medical issues is at hand and want her to make this decision for herself and not force her family to do so should she decline rapidly. I also explained I have nothing further from a therapeutic standpoint that Doxil that was previously prescribed was risky at best. I think we have come to the crossroads were potentially doing more harm than benefiting Machelle. She appeared to understand and grasp what was explained to her. I have asked Dr. Huff to empirically start her on antifungal. She has been neutropenic for a prolonged period of time and perhaps is trying to develop an underlying fungal infection. Explained to Machelle that no code status does not mean that we will not continue routine medical intervention, particularly antibiotics, transfusion pain and anxiety control to deal with symptoms as she progresses along. I believe Dr. Huff will ask palliative team to also engage Machelle today. I would be more than happy to return to the bedside should the need arise. Hopefully, my discussion was helpful.
[2018-12-13] MEDS: ACETAMINOPHEN 325 MG TAB PO PRN ×2 (08:51→15:38)
--- NOTE | 2018-12-13 08:56 | XRay Report ---
XR chest 1V portable HISTORY: pleural effusions COMPARISON: Chest 12/12/2018. FINDINGS: The left-sided chest tube terminates within the medial left midlung zone. No pneumothorax. There is also right basilar chest tube in place. Moderate left and small right pleural effusions nicholas in unchanged. Jugular Port-A-Cath terminates at the SVC. The heart appears enlarged. Right apical ple ural soft tissue thickening remains unchanged and measures 2.3 cm in thickness. Bibasilar densities p ersist. IMPRESSION: 1. No significant change in the bilateral pleural effusions, left greater than right, with associated bibasilar airspace opacities. 2. Bilateral chest tubes are in good position. No pneumothorax. 3. No change in the right apical pleural soft tissue thickening Electronically signed by: Claus Rico M.D. 12/13/2018 8:54 AM
[2018-12-13] MEDS: MAGNESIUM SULFATE / D5W 1 GM/100 ML BAG IV SCH ×2 (10:20→11:22)
[2018-12-13] MEDS: POTASSIUM CHLORIDE / WTR 10 MEQ/100 ML PLCT IV SCH ×2 (10:20→11:22)
[2018-12-13] MEDS ORDERED: Nursing to Pharmacy Communication ONE (13:03)
[2018-12-13] MEDS: HEPARIN SODIUM/DEXTROSE 25,000 UNITS/500 ML BAG IV SCH (15:38)
--- NOTE | 2018-12-13 15:43 | Palliative Care Consultation ---
Date of Consultation December 13, 2018 Assessment & Plan (1) Goals of care, counseling/discussion: Patient seen and examined in room 235-patient's father and niece at bedside. Patient lives with her niece, Marixa, who is her primary caregiver. Patient is a 58-year-old female with a past medical history significant for metastatic triple negative breast cancer-diagnosed in September 2012. Patient underwent bilateral mastectomies, right sided lymph node dissection and breast reconstruction. Patient underwent XRT as well as multiple courses of chemo. -Patient was receiving fifth line chemo(Doxil) -last dose was on 12/04. Patient also receives Neulasta after chemo. -Patient presented to the emergency room on 12/10 with increased weakness and shortness of breath. Patient reports she was short of breath-no change in positioning was able to relieve it so she presented to the emergency room. Patient had right pleural effusion with Pleurx drain placed on 11/23. Patient's niece drains her Pleurx at home. Patient was found to have a left malignant pleural effusion-Pleurx placed on 12/11. Patient continues to have a significant amount of drainage daily-approximately 4 to 500 cc bilaterally. Patient states her shortness of breath has improved. Patient is currently on room air with adequate O2 sats. -Patient reports pain-started on a 12 mcg fentanyl patch on 12/11 with good results. Patient has not required any PRN breakthrough pain medicine since 12/12. Patient states the pain is in the left side where her Pleurx drain was recently placed also has pain on the left side of her neck where she has extensive adenopathy. Patient not requiring -CT of neck showed extensive left neck adenopathy-largest dimension 8 cm- majority of cervical nodes appeared necrotic-could not rule out superimposed infection. Subcu and deep tissue edema with mild right deviation of the hypop harynx and proximal trachea-airway patent. Left internal jugular vein severely compressed. New right-sided cervical nodes-measuring 1.5 cm. -CTA showed extensive bilateral pulmonary emboli -Patient with increasing dysphasia since since 12/07-video swallow showed aspiration with thin liquids. Patient seen by COATING TECHNICIAN-aspiration precautions given to patient. -Patient with bilateral upper extremity edema left greater than right-left due to to massive adenopathy, right due to prior lymph node dissection. -Patient states her appetite is okay-there are times when food does not taste well, reports adequate p.o. intake. Patient has written instructions from COATING TECHNICIAN regarding aspiration precautions. -Patient was also found to have a pansensitive E. coli UTI-treated with antibiotics. -Patient's albumin 1.9-discussed ways to increase p.o. intake and nutrition. -Patient is single, never , no children. Patient lives with her niece, Marixa who is her primary caregiver. Patient states she has not named a healthcare power of attorney lawyer-discussed importance of naming someone to make her medical decisions if you are unable to as well as knowing what her wishes are. Reviewed paperwork and patient's admission packet where she can fill this out. -Discussed CODE STATUS at length with patient, father and niece-patient agreeable to DO NOT RESUSCITATE-we will have POLST form filled out prior to discharge. -Discussed returning home with hospice-patient agreeable-collaborated with case management regarding hospice referral. Will continue to follow and assist patient and family with medical decision making. CODE STATUS changed to DNR-will complete a POLST form prior to discharge Case management to assist patient and family with hospice referral. (2) Shortness of breath: Improved with new left sided Pleurx catheter placed on 12/11, also has right-sided Pleurx catheter-placed 11/23-now getting approximately 400 to 500 cc bilaterally. Continue to drain daily/as needed (3) Malignant pleural effusion: (4) Pulmonary emboli: Patient currently on heparin drip Pulmonary embolism type: other Chronicity: acute Acute cor pulmonale presence: without acute cor pulmonale Qualified Code(s): I26.99 - Other pulmonary embolism without acute cor pulmonale (5) Metastatic breast cancer: Triple negative breast cancer diagnosed September 2012-has now failed 5th line chemotherapy. -Plan for discharge home when medically stable with hospice care (6) Swallowing difficulty: Aspiration of thin liquids on video swallow-patient seen by COATING TECHNICIAN- instructions given for aspiration precautions Dysphagia type: unspecified Qualified Code(s): R13.10 - Dysphagia, unspecified (7) Severe protein-calorie malnutrition: Discussed with patient and niece ways to increase nutrition-patient's albumin is 1.9. (8) Cancer related pain: Patient reports adequate pain control with fentanyl patch-we will transition to p.o./sublingual Roxanol prior to discharge home. History of Present Illness Reason for Consultation: Address CODE STATUS and goals of care Requesting Physician: Dr Huff Attending Physician: Ottoniel Huff History of Present Illness Patient seen and examined in room 235-patient's father and niece at bedside. Patient lives with her niece, Marixa, who is her primary caregiver. Patient is a 58-year-old female with a past medical history significant for metastatic triple negative breast cancer-diagnosed in September 2012. Patient underwent bilateral mastectomies, right sided lymph node dissection and breast reconstruction. Patient underwent XRT as well as multiple courses of chemo. -Patient was receiving fifth line chemo(Doxil) -last dose was on 12/04. Patient also receives Neulasta after chemo. -Patient presented to the emergency room on 12/10 with increased weakness and shortness of breath. Patient reports she was short of breath-no change in positioning was able to relieve it so she presented to the emergency room. Patient had right pleural effusion with Pleurx drain placed on 11/23. Patient's niece drains her Pleurx at home. Patient was found to have a left malignant pleural effusion-Pleurx placed on 12/11. Patient continues to have a significant amount of drainage daily-approximately 4 to 500 cc bilaterally. Patient states her shortness of breath has improved. Patient is currently on room air with adequate O2 sats. -Patient reports pain-was recently started on a 12 mcg fentanyl patch with good results. Patient states the pain is in the left side where her Pleurx drain was recently placed also has pain on the left side of her neck where she has extensive adenopathy. -CT of neck showed extensive left neck adenopathy-largest dimension 8 cm- majority of cervical nodes appeared necrotic-could not rule out superimposed infection. Subcu and deep tissue edema with mild right deviation of the hypopharynx and proximal trachea-airway patent. Left internal jugular vein severely compressed. New right-sided cervical nodes-measuring 1.5 cm. -CTA showed extensive bilateral pulmonary emboli -Patient with increasing dysphasia since since 12/07-video swallow showed as piration with thin liquids. Patient seen by COATING TECHNICIAN-aspiration precautions given to patient. -Patient with bilateral upper extremity edema left greater than right-left due to to massive adenopathy, right due to prior lymph node dissection. -Patient states her appetite is okay-there are times when food does not taste well, reports adequate p.o. intake. Patient has written instructions from COATING TECHNICIAN regarding aspiration precautions. -Patient was also found to have a pansensitive E. coli UTI-treated with antibiotics. -Patient's albumin 1.9-discussed ways to increase p.o. intake and nutrition. -Patient is single, never , no children. Patient lives with her niece, Marixa who is her primary caregiver. Patient states she has not named a healthcare power of attorney lawyer-discussed importance of naming someone to make her medical decisions if you are unable to as well as knowing what her wishes are. Reviewed paperwork and patient's admission packet where she can fill this out. -Discussed CODE STATUS at length with patient, father and niece-patient agreeable to DO NOT RESUSCITATE-we will have POLST form filled out prior to discharge. -Discussed returning home with hospice-patient agreeable-collaborated with case management regarding hospice referral. Allergies Allergy/AdvReac Type Severity Reaction Status Date / Time Sulfa (Sulfonamide Allergy Intermediate HIVES Verified 12/10/18 16:05 Antibiotics) tramadol AdvReac Intermediate Nausea/Vomi Verified 12/10/18 16:05 ting Home Medications Home Medications Medication Instructions Recorded Confirmed Type ondansetron HCl 8 mg tablet 8 mg PO TID PRN 04/20/18 12/10/18 History acetaminophen [Tylenol] 325 - 650 mg PO Q6H PRN 05/31/18 12/10/18 History potassium chloride 10 meq PO DAILY 05/31/18 12/10/18 History Caltrate 600-D Plus Minerals 1 tab PO BID #60 tab 10/29/18 12/10/18 Rx Phospha 250 Neutral 1 tab PO QID #120 tab 10/29/18 12/10/18 Rx fentanyl 12 mcg TRANSDERMAL Q3D #5 ea 10/29/18 12/10/18 Rx gabapentin 100 mg PO HS #30 cap 10/29/18 12/10/18 Rx Patient History Medical History Pleural effusion (Acute) Weakness (Acute) Breast cancer (Acute) Tachycardia (Acute) Edema Hypomagnesemia Weakness Hypokalemia Hypotension DVT prophylaxis Anemia Anemia associated with chemotherapy (~11/2012) BRCA1 genetic carrier 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 Breast cancer (~08/2012) Cancer of midline of right female breast (10/01/12) "Right breast mass Status post biopsy of the right breast and axilla revealing infiltrating ductal carcinoma 10/01/2012 Estrogen receptor negative, progesterone receptor negative, HER-2/violeta negative Status post neoadjuvant chemotherapy Adriamycin and Cytoxan followed by Taxol for 4 cycles Status post right breast skin sparing mastectomy and right axillary lymph node dissection, left breast skin sparing mastectomy and lymph node injection and sentinel lymph node biopsy 04/10/2014 Right breast [id number] left breast no pathologic findings Status post reconstruction with bilateral silicone implants Status post completion of radiation therapy 07/10/2013 received 6120 cGy BRCA1 testing positive Finding of a right neck mass March 2016 Status post FNA revealing metastatic adenocarcinoma of breast origin PET/CT revealing extensive metastatic disease. 6 cycles of chemotherapy with Abraxane PET/CT revealing improvement August [address] November 2016 showing progression Currently undergoing chemotherapy with gemcitabine and carboplatin" On 02/24/15 13:29 Linda Roth wrote "Right breast mass Status post biopsy of the right breast and axilla revealing infiltrating ductal carcinoma 10/01/2012 Estrogen receptor negative, progesterone receptor negative, HER-2/violeta negative Status post neoadjuvant chemotherapy Adriamycin and Cytoxan followed by Taxol for 4 cycles Status post right breast skin sparing mastectomy and right axillary lymph node dissection, left breast skin sparing mastectomy and lymph node injection and sentinel lymph node biopsy 04/10/2014 Right breast [id number] left breast no pathologic findings Status post reconstruction with bilateral silicone implants Status post completion of radiation therapy 07/10/2013 received 6120 cGy BRCA1 testing positive" Metastasis to lymph nodes Metastatic breast cancer Breast CA (Acute) Constipation (Acute) Migraine (Acute) Surgical History H/O bilateral mastectomy (Acute) History of hysterectomy (Acute) S/P tonsillectomy Family History Brother Myocardial infarction Hodgkins disease Uncle Myocardial infarction Grandmother (Paternal) Heart disease Sister Colon cancer Other Cancer Diabetes Hypertension Social History Preferred Language: Portuguese Communication Ability: Effective Visual Impairment: No Limitations Hearing Ability: Normal Shell Shop Supervisor Required: No Beliefs That Will Affect Care: None marital status: Single Current Living Situation: Family current occupational status: employed current occupation: electrical assistant at [employer] Feels Safe at Home: Yes Safety Concerns: Feels Safe At This Time Smoking Status: Never smoker Second Hand Exposure: No ; Hx Alcohol Use: No Hx Substance Use: No Dental Care, Regularly: Yes Physical Activity Frequency: Daily Review of Systems Review of Systems: Patient denies fever, chills, chest pain, increased shortness of breath, or abdominal pain Shortness of breath has improved with bilateral Pleurx drains Positive for bilateral upper extremity edema left greater than right Physical Exam Physical Exam: PE: Patient awake and alert, no acute distress HEENT: EOMI, hearing within normal limits Neck: Large left-sided adenopathy Respiratory: Diminished breath sounds bilateral bases left greater than right, respirations unlabored CV: Regular rate on exam, trace pedal edema Abdomen: Soft, nontender Extremities: Bilateral upper extremity edema left greater than right Neuro: Alert and oriented x4, able to make medical decisions Psych: Appropriate mood and affect Results & Data Vital Signs (Past 12 Hours) Vital Signs Temp Pulse Pulse Resp BP Pulse Ox 12/13/18 15:30 97.5 F L 107 H 18 90/64 L 96 12/13/18 11:40 98.1 F 105 H 16 92/64 L 93 12/13/18 10:30 106 H 106 H 88/59 L 99 12/13/18 07:10 97.9 F 111 H 20 89/63 L 98 12/13/18 03:54 98.1 F 106 H 18 93/65 L 96 PG Care Time/CCT Total # of Minutes Spent Total Time Spent with Patient: Total time spent is greater than 50% in coordination of care (as documented) at patient's floor/unit and/or counseling patient: Time Spent Attending Total time spent 80 minutes with greater than 50% of the time spent at bedside discussing CODE STATUS and goals of care with patient. Collaborated with attending physician as well as case management.
--- NOTE | 2018-12-13 17:56 | Hospitalist Progress Note ---
Date of Service December 13, 2018 Assessment & Plan (1) Metastatic breast cancer: severe, progressive, extensive stage 4 disease with NUMEROUS mets to neck, chest, skin, etc. this is despite recent attempts at chemotherapy. Dr Holguin spoke with patient this AM -- advised stopping all chemo and transitioning to palliative care/hospice. chemotherapy is not providing benefit as cancer is progressing through the chemotherapy. increase fentanyl patch to 25mcg q3d given ongoing pain issues. cont dilaudid 0.5mg prn. cont oxycodone prn. appreciate palliative care consultation - likely home w/ hospice appreciate Dr Holguin's assistance. appreciate Dr Leonard's assistance. encouraged pt to reach out to softlines supervisor for spiritual/pastoral guidance. (2) Pulmonary emboli: extensive b/l. likely a cause of her tachycardia along with dyspnea, chest discomfort, etc. stop heparin drip. change to xarelto 15mg BID x 3 weeks, then 20mg daily thereafter. (3) Malignant pleural effusion: b/l s/p b/l pleurX insertion - left sided catheter placed this admission by Dr Leonard. the CTA showed a large effusion on left despite the pleurX - this is concerning for loculation. Thoracic team aware of CT findings. continue daily drain b/l got 400cc out from each this am (4) Severe protein-calorie malnutrition: ongoing (5) Chemotherapy induced nausea and vomiting: improved cont supportive care, anti-emetics, etc (6) Tachycardia: likely multifactorial - SIRS, PEs, dehydration, etc. likely to be ongoing no change in BP or HR with IV fluids - will stop them today (7) Hypomagnesemia: replace again IV (2 gms mag sulfate) (8) Weakness: multifactorial - extensive cancer, UTI, PEs, depression, chemo side effects, etc supportive care (9) Hypokalemia: replace IV (10) Hypotension: PEs could be contributing sepsis/SIRS from UTI, etc could be contributing cortisol wnl H/H low but acceptable (11) UTI (urinary tract infection): cont keflex another 3-4 days then stop (12) DVT prophylaxis: xarelto updated father again by phone today - he had opportunity to speak with Dr Vasquez today questions answered dispo planning home w/ hospice?? focus on pain control moving forward Subjective patient met with Dr Holguin this am; he was very upfront with her that her chemotherapy was not successful in treating her cancer and advised she stop all treatment of the cancer itself. she was quite teary-eyed during the visit knowing that chemo would be stopped. she was also seen by Dr Vasquez and a long discussion was held about hospice and returning home with such. we talked about things like her job at [employer] and that she "no longer would be working." she reported some pain over the left chest wall, left neck, etc. also mentioned worsening edema of arms and legs. tele with ongoing sinus tach. Review of Systems Constitutional: no fever and no chills Respiratory: + dyspnea on exertion and + pain on inspiration Cardiovascular: as per Subjective / HPI and + chest pain; no dyspnea at rest Gastrointestinal: no abdominal pain Physical Exam Constitutional: + ill appearing; + not well developed, + not well nourished and no acute distress ENMT: Mouth: no oral mucosal abnormality Neck: severe swelling of left neck due to lymphadenopathy and breast cancer mets - no change from prior exam Respiratory: Auscultation: + diminished lung sounds (both bases) Cardiovascular: Rate/Rhythm: regular rhythm and + tachycardic Heart Sounds: normal S1 and normal S2 Vessels: posterior tibial pulses present and dorsalis pedis pulses present; no JVD Extremities: + edema (1+ b/l upper exts (worse Left); <1+ edema b/l legs) Gastrointestinal (Abdomen): normal bowel sounds, soft, nontender, no hepatosplenomegaly Skin: + scar (extensive - right upper chest; port in place left chest ) Psychiatric: Orientation: alert and oriented x 3 Affect: + depressed affect and + flat affect Results & Data Vital Signs (Past 12 Hours) Vital Signs Temp Pulse Pulse Resp BP Pulse Ox 12/13/18 15:30 36.4 C L 107 H 18 90/64 L 96 12/13/18 11:40 36.7 C 105 H 16 92/64 L 93 12/13/18 10:30 106 H 106 H 88/59 L 99 12/13/18 07:10 36.6 C 111 H 20 89/63 L 98 Laboratory Results Laboratory Results - last 24 hr 12/13/18 12/13/18 12/13/18 00:13 06:32 06:32 WBC 3.67 L RBC 2.94 L Hgb 8.1 L Hct 25.8 L MCV 87.8 MCH 27.6 MCHC 31.4 L RDW Std Deviation 60.4 H RDW Coeff of Dionicio 19.3 H Plt Count 176 MPV 10.1 APTT 50.4 H* PTT Ratio 1.9 Sodium 140 Potassium 3.3 L Chloride 108 H Carbon Dioxide 25 Anion Gap 7.0 BUN 5 L Creatinine 0.39 L Est Cr Clr Drug Dosing 152.9 Est GFR ( Amer) 136.1 Est GFR (Non-Af Amer) 117.4 BUN/Creatinine Ratio 12.2 Glucose 99 Calcium 7.7 L Magnesium 1.7 L 12/13/18 06:37 WBC RBC Hgb Hct MCV MCH MCHC RDW Std Deviation RDW Coeff of Dionicio Plt Count MPV APTT 58.8 H* PTT Ratio 2.2 Sodium Potassium Chloride Carbon Dioxide Anion Gap BUN Creatinine Est Cr Clr Drug Dosing Est GFR ( Amer) Est GFR (Non-Af Amer) BUN/Creatinine Ratio Glucose Calcium Magnesium PG Care Time/CCT Total # of Minutes Spent Total Time Spent with Patient: Total time spent is greater than 50% in coordination of care (as documented) at patient's floor/unit and/or counseling patient: (1) UTI (urinary tract infection) Hematuria presence: without hematuria Urinary tract infection type: site unspecified Qualified Code(s): N39.0 - Urinary tract infection, site not specified (2) Pulmonary emboli Acute cor pulmonale presence: without acute cor pulmonale Chronicity: acute Pulmonary embolism type: other Qualified Code(s): I26.99 - Other pulmonary embolism without acute cor pulmonale (3) Hypotension Hypotension type: unspecified hypotension type Qualified Code(s): I95.9 - Hypotension, unspecified
[2018-12-13] MEDS: OXYCODONE HCL IR 5 MG TAB (IMMEDIATE RELEASE) PO PRN (18:11)
[2018-12-13] MEDS ORDERED: fentaNYL 25 MCG/HR TDSY TD SCH (19:00)
[2018-12-13] MEDS: RIVAROXABAN 15 MG TAB PO SCH (20:15)
[2018-12-13] MEDS: GABAPENTIN 100 MG CAP PO SCH (20:16)
[2018-12-14] MEDS: CHECK FENTANYL PATCH PLACEMENT SCH ×4 (00:23→23:48)
[2018-12-14] MEDS: POT PHOSPHATE MONOBASIC W/ SOD TAB PO SCH ×3 (07:44→16:24)
[2018-12-14] MEDS: CALCIUM 600MG + VIT D 400 IU TAB PO SCH (07:44)
[2018-12-14] MEDS: RIVAROXABAN 15 MG TAB PO SCH ×2 (07:45→20:25)
[2018-12-14] MEDS: cephALEXin 500 MG CAP PO SCH ×2 (07:45→20:24)
--- NOTE | 2018-12-14 09:39 | XRay Report ---
XR chest 1V portable CLINICAL HISTORY: effusion COMPARISON STUDY: 12/13/2018 FINDINGS: The heart remains enlarged. There are persistent bilateral pleural effusions left greater t phipps right. Bilateral pleural drainage catheters are again visualized. There is a left-sided A-Port ca theter. There is persistent right apical pleural thickening. Surgical clips project over both axillar y regions. Breast implants are suspected. There are associated basilar airspace opacities, possibly r epresenting compressive atelectasis although a superimposed inflammatory process cannot be excluded.[ IMPRESSION: 1. No significant change in the position of the bilateral pleural drainage catheters 2. Persistent bilateral pleural effusions left greater than right relatively similar in size to the p receding study Electronically signed by: Shilo Kenney M.D. 12/14/2018 9:38 AM
--- NOTE | 2018-12-14 12:43 | Palliative Care Progress Note ---
Date of Service December 14, 2018 Assessment & Plan (1) Goals of care, counseling/discussion: -Metastatic triple negative breast cancer. End-stage. -Plan is to go home with hospice today or tomorrow (12/15). Niece is primary caregiver and lives with patient. -Patient states her pain is well-controlled on fentanyl patch and Roxicodone. -Support given and discussed home hospice further. Patient denies any questions/concerns. she was tearful throughout conversation but is ready to go home to spend quality time with family. her sister from [place] is coming tomorrow. (2) Shortness of breath: (3) Malignant pleural effusion: (4) Pulmonary emboli: (5) Metastatic breast cancer: (6) Swallowing difficulty: Aspiration of thin liquids on video swallow-patient seen by MEDICAL REGISTRAR- instructions given for aspiration precautions (7) Severe protein-calorie malnutrition: (8) Cancer related pain: Subjective Patient feeling well today. Sitting up in chair watching TV. Pain is well-controlled with increased fentanyl patch. Review of Systems Review of Systems: Patient denies fever, chills, chest pain, increased short ness of breath, or abdominal pain Shortness of breath has improved with bilateral Pleurx drains, does have reexpansion cough this morning Results & Data Vital Signs (Past 12 Hours) Vital Signs Temp Pulse Resp BP Pulse Ox 12/14/18 12:31 36.6 C 118 H 18 80/62 L 97 12/14/18 08:03 36.9 C 122 H 18 88/63 L 92 12/14/18 03:33 36.7 C 125 H 18 100/67 94 Supervising Physician Co-Signing Physician Notes Patient seen and examined-collaborated with DORINA Jalloh No family at bedside. PE: Patient appears more comfortable today compared to exam done yesterday-she is sitting upright in bed, no acute distress HEENT: EOMI, hearing within normal limits Neck: Large neck mass on left Respiratory-no shortness of breath, respirations unlabored CV: Tachycardic Neuro: Alert and oriented x4 Agree with above note, assessment and plan per DORINA Jalloh. Plan is for discharge home with hospice on 12/15. Time Spent Midlevel 35 minutes with >50% of the time spent at bedside with patient discussing plan of care and home hospice. (1) Swallowing difficulty Dysphagia type: unspecified Qualified Code(s): R13.10 - Dysphagia, unspecified (2) Pulmonary emboli Acute cor pulmonale presence: without acute cor pulmonale Chronicity: acute Pulmonary embolism type: other Qualified Code(s): I26.99 - Other pulmonary embolism without acute cor pulmonale
--- NOTE | 2018-12-14 12:54 | Surgery Progress Note ---
Date of Service December 14, 2018 Assessment & Plan (1) Pleural effusion: -due to bilateral pleural effusions, pt. required pleurex catheters on each side -right side drained for 400 cc today, left side for 550 cc today -pleural fluid cultures reviewed and are (-) thus far -discussed with hospitalist: -pt. noted to have bilateral PEs so she is anticoagulated (xarelto) -plans noted for hospice care -continue drainage of pleurex catheters upon return home -will will call pt. for follow-up as outpt. Subjective Pt. notes her breathing feels better after draining her pleurex catheters. No CP. Physical Exam Constitutional: + ill appearing; no acute distress Respiratory: no respiratory distress and no labored breathing BS decreased bilaterally Results & Data Vital Signs (Past 12 Hours) Vital Signs Temp Pulse Resp BP Pulse Ox 12/14/18 12:31 36.6 C 118 H 18 80/62 L 97 12/14/18 08:03 36.9 C 122 H 18 88/63 L 92 12/14/18 03:33 36.7 C 125 H 18 100/67 94 PG Care Time/CCT Total # of Minutes Spent Total Time Spent with Patient: Total time spent is greater than 50% in coordination of care (as documented) at patient's floor/unit and/or counseling patient:
[2018-12-14] MEDS ORDERED: dexAMETHasone 4 MG TAB PO ONE (13:11)
[2018-12-14] MEDS: BENZONATATE 100 MG CAPSULE PO SCH ×2 (14:25→20:25)
--- NOTE | 2018-12-14 14:38 | Hospitalist Progress Note ---
Date of Service December 14, 2018 Assessment & Plan (1) Metastatic breast cancer: severe, progressive, extensive stage 4 disease with NUMEROUS mets to neck, chest, skin, etc. this is despite recent attempts at chemotherapy. Dr Holguin spoke with patient several days ago and advised stopping all chemo and transitioning to palliative care/hospice. increased fentanyl patch to 25mcg q3d given ongoing pain issues. this was done on 12/13/18. cont dilaudid 0.5mg prn. cont oxycodone prn. appreciate palliative care consultation/Dr Vsaquez's assistance - home with hospice on Monday12/15/18. appreciate Dr Holguin's assistance. appreciate Dr Leonard's assistance. encouraged pt to reach out to luggage repairer for spiritual/pastoral guidance. I met with patient, her niece, her father, and Alexa from today to discuss transition plan to home. Plan is for home with hospice on 12/15/18. [facility] hospice to provide services. (2) Pulmonary emboli: extensive b/l. cont xarelto 15mg BID x 3 weeks, then 20mg daily thereafter. xarelto 15's called to pharmacy. 20mg prescription was printed and placed in chart. (3) Malignant pleural effusion: b/l s/p b/l pleurX insertion - left sided catheter placed this admission by Dr Leonard. left effusion likely loculated. continue daily drain b/l as tolerated or desired by patient getting 400-500cc out from each side daily (4) Severe protein-calorie malnutrition: ongoing 2nd to stage 4 breast ca (5) Chemotherapy induced nausea and vomiting: improved/resolved cont supportive care, anti-emetics, etc (6) Tachycardia: likely multifactorial - SIRS, PEs, dehydration, etc. ongoing no Rx (7) Hypomagnesemia: replaced (8) Weakness: multifactorial - extensive cancer, UTI, PEs, depression, chemo side effects, etc supportive correction with hospice (9) Hypokalemia: replaced (10) Hypotension: ongoing PEs could be contributing sepsis/SIRS from UTI, etc could be contributing cortisol wnl H/H low but acceptable no Rx (11) UTI (urinary tract infection): cont keflex script for 3 additional days called to [facility] (12) DVT prophylaxis: xarelto multiple visits to pt's bedside today multiple discussions with pt, her father, her niece with whom she lives, and social work (Alexa Marie) everything is in place for d/c home tomorrow w/ hospice can d/c tele transfer to med/surg DNR total time today over several visits, coordinating care, counseling, preparing prescriptions, etc - 65 minutes. Subjective tele - sinus tach patient sitting in chair by bedside asks when she can go home pain in left neck, chest, abd - all improved s/p increase in fentanyl patch yesterday reports a "sore" nodule right upper quadrant on abdominal wall at conclusion of my visit her father and niece walked in room we discussed plan extensively Review of Systems Constitutional: + weakness and + anorexia; no fever Respiratory: + cough and + dyspnea on exertion Cardiovascular: no chest pain Gastrointestinal: no abdominal pain and no nausea Physical Exam Constitutional: + ill appearing; + not well developed, + not well nourished and no acute distress ENMT: Mouth: no oral mucosal abnormality Respiratory: Auscultation: + diminished lung sounds (both bases) and + crackles (occasional - bases) Cardiovascular: Rate/Rhythm: regular rhythm and + tachycardic Heart Sounds: normal S1 and normal S2 Vessels: posterior tibial pulses present and dorsalis pedis pulses present; no JVD Extremities: + edema (1+ b/l upper exts (worse Left); <1+ edema b/l legs) Gastrointestinal (Abdomen): normal bowel sounds, soft, nontender, no hepatosplenomegaly Skin: + scar (extensive - right upper chest; port in place left chest ) numerous skin nodules (breast ca mets) on back of neck, RUQ abd wall, etc; RUQ abd wall met mildly swollen but no erythema Psychiatric: Orientation: alert and oriented x 3 Affect: + depressed affect and + flat affect Lymphatic: extensive lymphadenopathy b/l neck much worse on left with solid mets to soft tissue as well Results & Data Vital Signs (Past 12 Hours) Vital Signs Temp Pulse Resp BP Pulse Ox 12/14/18 12:31 36.6 C 118 H 18 80/62 L 97 12/14/18 08:03 36.9 C 122 H 18 88/63 L 92 12/14/18 03:33 36.7 C 125 H 18 100/67 94 PG Care Time/CCT Total # of Minutes Spent Total Time Spent: 65 Total Time Spent with Patient: Total time spent is greater than 50% in coordination of care (as documented) at patient's floor/unit and/or counseling patient: (1) UTI (urinary tract infection) Hematuria presence: without hematuria Urinary tract infection type: site unspecified Qualified Code(s): N39.0 - Urinary tract infection, site not speci fied (2) Pulmonary emboli Acute cor pulmonale presence: without acute cor pulmonale Chronicity: acute Pulmonary embolism type: other Qualified Code(s): I26.99 - Other pulmonary embolism without acute cor pulmonale (3) Hypotension Hypotension type: unspecified hypotension type Qualified Code(s): I95.9 - Hypotension, unspecified
--- NOTE | 2018-12-14 14:45 | Surgery Progress Note ---
Date of Service December 14, 2018 Assessment & Plan (1) Malignant pleural effusion: Patient is responded well to this left Pleurx catheter. She is draining a fair amount and put out about 900 out today. We will need to be careful that she does not get dehydrated when she goes home. We will follow-up with her in the office if necessary. We will keep track of what she drains from the Pleurx catheters. Present on Admission?: Yes Subjective Machelle looks better and feels better today. She is on room air. She has been designated a hospice patient and will be going home in the morning. Discussed this case with Dr. Rubio. Review of Systems Review of Systems: All systems reviewed & are unremarkable except as noted in HPI & below Patient's breathing is better. Otherwise there have been no changes in her review of systems. Physical Exam Physical Exam: Both Pleurx sites are clean. She has decreased breath sounds in both bases worse on the left than the right. Results & Data Vital Signs (Past 12 Hours) Vital Signs Temp Pulse Resp BP Pulse Ox 12/14/18 12:31 36.6 C 118 H 18 80/62 L 97 12/14/18 08:03 36.9 C 122 H 18 88/63 L 92 12/14/18 03:33 36.7 C 125 H 18 100/67 94 PG Care Time/CCT Total # of Minutes Spent Total Time Spent with Patient: Total time spent is greater than 50% in coordination of care (as documented) at patient's floor/unit and/or counseling patient:
[2018-12-14] MEDS: GABAPENTIN 100 MG CAP PO SCH (20:25)
[2018-12-15] MEDS: ACETAMINOPHEN 325 MG TAB PO PRN (06:12)
[2018-12-15 07:33] VITALS: O2SAT 96
--- NOTE | 2018-12-15 08:35 | Surgery Progress Note ---
Date of Service December 15, 2018 Assessment & Plan (1) Malignant pleural effusion: Patient will be discharged and will be drained daily by hospice/home care. I will keep up with the amount from the office. She has widely metastatic disease which is progressive. The Pleurx catheters have been helpful in keeping her pleural effusions will drained. Present on Admission?: Yes Subjective Machelle looks quite good today. She is surprised that how much strained her from her left Pleurx catheter (a bit over 600) but from a pulmonary standpoint she is done well. She is on room air. She is eating well. She is to be discharged today. Physical Exam Physical Exam: She continues to have decreased breath sounds more so on the left than the right but she is moving air fairly well. She has no wheezing. Pleurx sites are clean. She is awake alert oriented in good spirits. Results & Data Vital Signs (Past 12 Hours) Vital Signs Temp Pulse Resp BP Pulse Ox 12/15/18 07:33 36.5 C 102 H 18 90/61 L 96 12/15/18 04:04 36.7 C 109 H 16 91/63 L 91 12/14/18 23:13 36.4 C L 107 H 16 105/67 95 PG Care Time/CCT Total # of Minutes Spent Total Time Spent with Patient: Total time spent is greater than 50% in coordination of care (as documented) at patient's floor/unit and/or counseling patient:
[2018-12-15] MEDS ORDERED: dexAMETHasone 1 MG TAB PO SCH (09:00)
[2018-12-15] MEDS: CHECK FENTANYL PATCH PLACEMENT SCH (09:09)
[2018-12-15] MEDS: BENZONATATE 100 MG CAPSULE PO SCH ×2 (09:10→14:34)
[2018-12-15] MEDS: RIVAROXABAN 15 MG TAB PO SCH (09:10)
[2018-12-15] MEDS: cephALEXin 500 MG CAP PO SCH (09:10)
[2018-12-15] MEDS: ONDANSETRON INJ 2 MG/ML 2 ML VIAL IV PRN (11:07)
[2018-12-15 11:25] VITALS: BP 98/67; TEMP 97.3
[2018-12-15 14:39] VITALS: PULSE 106
--- NOTE | 2018-12-15 15:23 | Discharge Summary ---
Date of Service December 15, 2018 Admission HPI Per Admitting Provider 58-year-old female with past medical history of metastatic breast cancer BRCA positive, triple negative, S/P bilateral mastectomy, S/P total hysterectomy presents from her PCP with nausea and shortness of breath. She said that the nausea has been present since after her chemotherapy treatment last Monday. She is on a every 28-day regimen. She is also started to have shortness of breath beginning Monday. Her breast cancer has metastasized to her mediastinum, chest wall and neck. She has received radiation therapy to her bilateral neck. Over the course of her treatment, the patient is developed bilateral pleural effusions. During an admission at the end of October, the patient received a right pleural X catheter. She denies any fevers, chills, night sweats. Patient reports decreased p.o. intake since developing nausea post chemotherapy treatment. Review of systems Constitutional; denies fevers, chills, night sweats HEENT; no runny nose, no sore throat, no sinus pressure CV; describes anterior chest pain ongoing with mediastinal metastatic disease, denies palpitations Respiratory; shortness of breath as described above, denies hemoptysis Abdomen; describes right-sided abdominal pain, chronic, nausea, denies vomiting diarrhea Discharge Data Allergies Allergy/AdvReac Type Severity Reaction Status Date / Time Sulfa (Sulfonamide Allergy Intermediate HIVES Verified 12/10/18 16:05 Antibiotics) tramadol AdvReac Intermediate Nausea/Vomi Verified 12/10/18 16:05 ting Consultations 12/10/18 20:24 ED Decision to Admit Stat 12/10/18 23:17 Consult Case Management - Discharge Planning Routine Consult Thoracic Surgery Routine 12/11/18 10:31 Consult Oncology Routine 12/13/18 09:56 Consult Palliative Care Routine Ordered Studies 12/10/18 21:09 US venous doppler UE LT Urgent 12/11/18 14:30 FL video swallow Routine 12/12/18 12:37 CT angio chest PE protocol Routine CT soft tissue neck w con Routine Hospital Course (1) Metastatic breast cancer: severe, progressive, extensive stage 4 disease with NUMEROUS mets to neck, chest, skin, etc. this is despite recent attempts at chemotherapy. Dr Holguin spoke with patient several days ago and advised stopping all chemo and transitioning to palliative care/hospice. increased fentanyl patch to 25mcg q3d given ongoing pain issues. this was done on 12/13/18. cont dilaudid 0.5mg prn. cont oxycodone prn. appreciate palliative care consultation/Dr Vasquez's assistance - home with hospice on Monday12/15/18. appreciate Dr Holguin's assistance. appreciate Dr Leonard's assistance. encouraged pt to reach out to bump grader operator for spiritual/pastoral guidance. I met with patient, her niece, her father, and Alexa from today to discuss transition plan to home. Plan is for home with hospice on 12/15/18. [facility] hospice to provide services. (2) Pulmonary emboli: extensive b/l. cont xarelto 15mg BID x 3 weeks, then 20mg daily thereafter. xarelto 15's called to pharmacy. 20mg prescription was printed and placed in chart. (3) Malignant pleural effusion: b/l s/p b/l pleurX insertion - left sided catheter placed this admission by Dr Leonard. left effusion likely loculated. continue daily drain b/l as tolerated or desired by patient getting 400-500cc out from each side daily (4) Severe protein-calorie malnutrition: ongoing 2nd to stage 4 breast ca (5) Chemotherapy induced nausea and vomiting: improved/resolved cont supportive care, anti-emetics, etc (6) Tachycardia: likely multifactorial - SIRS, PEs, dehydration, etc. ongoing no Rx (7) Hypomagnesemia: replaced (8) Weakness: multifactorial - extensive cancer, UTI, PEs, depression, chemo side effects, etc supportive long term with hospice (9) Hypokalemia: replaced (10) Hypotension: ongoing PEs could be contributing sepsis/SIRS from UTI, etc could be contributing cortisol wnl H/H low but acceptable no Rx (11) UTI (urinary tract infection): cont keflex script for 3 additional days called to [facility] (12) DVT prophylaxis: xarelto multiple visits to pt's bedside today multiple discussions with pt, her father, her niece with whom she lives, and social work (Alexa Marie) everything is in place for d/c home tomorrow w/ hospice can d/c tele transfer to med/surg DNR total time today over several visits, coordinating care, counseling, preparing prescriptions, etc - 65 minutes. Discharge Plan Discharge Items Patient Disposition: Hospice - Home Reason For Visit: PLEURAL EFFUSION, SOB Discharge Diagnosis: metastatic breast cancer, pulmonary emboli (blood clots in lungs), pleural effusions in both sides of chest due to breast cancer (pleurX catheters in place), chemotherapy induced nausea and vomiting, urine tract infection Activity: Resume your previous activity Non-emergency contact: Primary Care Provider Call non-emergency contact if: you have any medication questions and your symptoms worsen Follow-up/Referrals: Claire Snowden CRNP [Primary Care Provider] - Diet: Regular Addtl Attending Provider Instructions: You were admitted to [facility] on 10 December 2018 due to nausea, dehydration and shortness of breath. This was due to chemotherapy induced nausea causing poor oral intake and dehydration, in addition to a urine tract infection, malignant pleural effusions and pulmonary emboli (blood clots on the pulmonary arteries causing shortness of breath. You were treated with left pleurX drain for the pleural effusion and Xarelto for the pulmonary embolism. The pleurX catheters are to be managed at home by the hospice team and recommend they are drained daily. Pending Studies at Discharge: No Stand-Alone Forms: My [facility] Medications and DC Order Prescriptions: New Xarelto 15 mg Tablet 15 mg PO BID 19 Days Qty: 38 RF: 0 oxycodone 5 mg Tablet 5 - 10 mg PO Q4H PRN (Reason: pain) Qty: 30 RF: 0 dexamethasone 1 mg Tablet 2 mg PO DAILY Qty: 30 RF: 1 benzonatate [Tessalon Perles] 100 mg Capsule 100 mg PO TID PRN (Reason: cough) Qty: 30 RF: 2 ondansetron 4 mg tablet,disintegrating 4 mg PO Q6H PRN (Reason: nausea and vomiting) Qty: 20 RF: 0 lorazepam [Ativan] 0.5 mg tablet 0.5 mg PO Q6H PRN (Reason: anxiety, sleep, nausea) Qty: 20 RF: 0 Xarelto 20 mg tablet 20 mg PO DAILY Qty: 30 RF: 2 fentanyl 25 mcg/hr Patch 72 Hour 25 mcg transdermal Q72H Qty: 10 RF: 0 Continued acetaminophen [Tylenol] 325 mg Tablet 325 - 650 mg PO Q6H PRN (Reason: Pain) RF: 0 gabapentin 100 mg Capsule 100 mg PO HS Qty: 30 RF: 0 Discontinued ondansetron HCl [Zofran] 8 mg tablet 8 mg PO TID PRN (Reason: Nausea) RF: 0 potassium chloride 10 mEq Tablet Extended Release 10 meq PO DAILY RF: 0 fentanyl 12 mcg/hr Patch 72 Hour 12 mcg transdermal Q3D Qty: 5 RF: 0 Phospha 250 Neutral 250 mg Tablet 1 tab PO QID Qty: 120 RF: 0 Caltrate 600-D Plus Minerals 600 mg calcium- 800 unit-50 mg Tablet 1 tab PO BID Qty: 60 RF: 0 Discharge Orders: Discharge Order (Routine); Ordered 12/15/18 Ordered By: Ottoniel Perdomo Admission Data Admit Date/Time: 12/10/18 20:47 Attending Provider: Ottoniel Perdomo Admit Provider: Abilio Alvarado Primary Care Provider: Claire Snowden Other Providers: [facility],Home Healthcare ; Hi Felder ; Alexander Leonard ; Mendez Holguin V ; Aye Vasquez Other Interventions: Discharge Summary Assessment (RN) Last Done: 12/15/18 14:37 DC Date/Time DO NOT enter until pt leaves facility: 12/15/18 16:13
== END 2018-12-15 16:13 | disposition hospice, home (50) | DRG 871 ==
LOC: ED 16:52 → SUATTDRO 20:47 → 2S 20:47 → 4W 12-14 14:42